=== PATIENT | male | born 1965 | race Caucasian/White ===

== ENCOUNTER → 2019-10-04 14:59 | Outpatient (CLI) | payer BC, SELFPAY ==
--- NOTE | 2019-10-04 15:01 | XR_ITS ---
PROCEDURE: XR CHEST AP CLINICAL HISTORY: COUGH, COMPARISON: CXR CHEST(2 VIEWS-NOT PORTABLE) from 07/15/2012 FINDINGS: The cardiomediastinal silhouette and pulmonary vascularity are within normal limits. The lungs are clear without infiltrates, suspicious nodules, or pleural effusions. No acute bony abnormalities. IMPRESSION: No acute findings. Dictated by: Santi Hanna MD 10/04/2019 16:04 Electronically signed by Santi Hanna MD in [place] 10/04/2019 16:04
== END ==
PROVIDERS: PCP Family Medicine; Visit Provider Family Medicine
DX: J98.8 Other specified respiratory disorders (principal)
CPT/HCPCS: 71045

== ENCOUNTER → 2019-10-06 13:14 | Outpatient (CLI) | payer BC, SELFPAY ==
--- NOTE | 2019-10-08 09:12 | PC.NURSE ---
notified MD, patient, and [facility] of negative COVID-19 results.
[2019-10-08 10:32] LABS: Covid-19 Nasal PCR Sendout Lex NOT DETECTED
== END ==
PROVIDERS: Visit Provider Family Medicine
DX: R05 Cough (principal)

== ENCOUNTER 2025-05-20 04:09 | Emergency (ER) | payer BC, SELFPAY ==
--- OUTSIDE RECORDS SUMMARY | 2025-03-24 08:47 | XMS_ITS | Encounter Summary ---
Author Organization [facility] Address [address] [place] [id number] Care Team Providers Care Sole Cutter Name Role Phone Rickey Cross Deidra Primary Care Provider Source Comments In the event this information is protected by the Federal Confidentiality of Alcohol and Drug AbusePatient Records regulations: The Federal rules restrict any use of the information to criminally investigate or prosecute any alcohol or drug abuse patient.[facility] Reason for Referral * Diagnostic Procedure Only (Routine) - Closed Specialty Diagnoses / Procedures Referred By Contac t Referred To Contact XR IMAGING Diagnoses Bilateral primary osteoarthritis of knee Procedures XR LEG FRONTAL HIP TO ANKLE MECHANICAL AXIS BONE LENGTH STUDIES Dany Rossi DO [address] [place] [address] Phone: tel: fax: [place] [phone] Referral ID Status Reason Start Date Expiration Date V isits Requested Visits Authorized [id number] Closed Auto-Generate d Referral 12/14/2024 01/13/2026 1 1 * Diagnostic Procedure Only (Routine) - Closed Specialty Diagnoses / Procedures Referred By Contac t Referred To Contact XR IMAGING Diagnoses Bilateral primary osteoarthritis of knee Procedures XR KNEE GENERAL 4V AP BOTH/PA BOTH/LAT/MERC BILATERAL RADIOLOGIC EXAM KNEE COMPLETE 4/MORE VIEWS Dany Rossi DO [address] [place] [address] Phone: tel: fax: [place] [phone] Referral ID Status Reason Start Date Expiration Date V isits Requested Visits Authorized [id number] Closed Auto-Generate d Referral 12/14/2024 01/13/2026 1 1 Reason for Visit * Diagnostic Procedure Only (Routine) - Closed Specialty Diagnoses / Procedures Referred By Contac t Referred To Contact XR IMAGING Diagnoses Bilateral primary osteoarthritis of knee Procedures XR LEG FRONTAL HIP TO ANKLE MECHANICAL AXIS BONE LENGTH STUDIES Dany Rossi DO [address] [place] [address] Phone: tel: fax: [place] [phone] Referral ID Status Reason Start Date Expiration Date V isits Requested Visits Authorized [id number] Closed Auto-Generate d Referral 12/14/2024 01/13/2026 1 1 Encounter Details Date Type Department Care Team (Latest Contact Info) Description 03/24/2025 9:47 AM EDT - 03/24/2025 11:59 PM EDT Hospital Encounter Radiology [address] [place] [address] Bilateral primary osteoarthritis of knee [M17.0] Discharge Disposition: Home Social History Tobacco Use Types Packs/Day Years Used Date Smoking Tobacco: Every Day Cigarettes Smokeless Tobacco: Never Alcohol Use Standard Drinks/Week Comments No 0 (1 standard drink = 0.6 oz pur e alcohol) PHQ-2 Answer Date Recorded PHQ-2 score 0 03/21/2025 Area Deprivation Index Answer Date Chicho rded National Score (1-100), lower number is lower ri sk 78 04/23/2024 State Score (1-10), lower number is lower risk 6 04/23/2024 Data from: https://www.neighborhoodatlas.medicine.[facility].edu/. Last address used for calculation [address] [facility] [facility] 04/23/2024 Sex and Gender Information Value Date Recorded Sex Assigned at Male 02/08/2020 3:11 PM EDT Legal Sex Male 8:08 AM EST Gender Identity Male 02/08/2020 3:11 PM EDT Sexual Orientation Not on file Travel History Travel Start Travel End [place] 05/17/2025 05/18/2025 documented as of this encounter Functional Status * Are you deaf or do you have serious difficulty hearing? Answer Date of Assessment Author No 11/11/2014 12:35 PM EDT Michelle Salinas (Tripp)(Hist) * Are you blind or do you have serious difficulty seeing, even when wearing glasses? Answer Date of Assessment Author No 11/11/2014 12:35 PM EDT Michelle Salinas (Tripp)(Hist) * Do you have serious difficulty walking or climbing stairs? Answer Date of Assessment Author No 11/11/2014 12:35 PM EDT Michelle Salinas ([place]ripp)(Hist) * Do you have difficulty dressing or bathing? Answer Date of Assessment Author No 11/11/2014 12:35 PM EDT Michelle Salinas ([place]ripp)(Hist) * Because of a physical, mental, or emotional condition, do you have difficulty doing errands alone such as visiting a doctor's office or shopping? Answer Date of Assessment Author No 11/11/2014 12:35 PM Michelle Zepeda ([place]ripp)(Hist) documented as of this encounter Mental Status * Because of a physical, mental, or emotional condition, do you have serious difficulty concentrating, remembering, or making decisions? Answer Entry Date Author No 11/11/2014 12:35 PM EDT Michelle Salinas ([place]ripp)(Hist) documented in this encounter Medications at Time of Discharge oxyCODONE IR (ROXICODONE) 5 mg immediate release tabletIndications:Pos t-op pain Take 1-2 tablets by mouth every 4 hours as needed for pain for up to 7 days. 50 tablet 05/18/2025 4:47 PM EST 05/18/2025 aspirin, enteric coated (ECOTRIN LOW STRENGTH) 81 mg EC tablet Take 1 tablet by mouth two times a day for 28 days. 56 tablet 05/18/2025 4:47 PM EST 05/18/2025 5 docusate sodium (COLACE) 100 mg capsule Take 1 capsule by mouth two times a day. 60 capsule 05/18/2025 4:47 PM EST 05/18/2025 methocarbamol (ROBAXIN) 750 mg tablet Take 1 tablet by mouth three times a day for 14 days. 42 tablet 05/18/2025 4:47 PM EST 05/18/2025 acetaminophen (TYLENOL EXTRA STRENGTH) 500 mg tablet Take 2 tablets by mouth every 8 hours as needed for pain. 90 tablet 05/18/2025 4:47 PM EST 05/18/2025 doxycycline hyclate (VIBRAMYCIN) 100 mg capsule Take 1 capsule by mouth two times a day for 7 days. 14 capsule 05/18/2025 4:47 PM EST 05/18/2025 meloxicam (MOBIC) 15 mg tablet Take 1 tablet by mouth once daily for 14 days. 14 tablet 05/18/2025 4:47 PM EST 05/18/2025 omeprazole (PRILOSEC) 20 mg capsule Take 1 capsule by mouth once daily. 30 capsule 05/18/2025 4:47 PM EST 05/18/2025 ergocalciferol 50,000 unit capsule (VITAMIN D2, DRISDOL) Take 2 capsules by mouth one time a week. 24 capsule 05/18/2025 6 metFORMIN (GLUCOPHAGE) 500 mg tablet 03/17/2025 tamsulosin (FLOMAX) 0.4 mg 03/17/2025 testosterone (ANDROGEL) 12.5 mg/ 1.25 gram (1 %) transdermal gelIndications:Hypogo nadism in male APPLY a total of 4 pumps TO CLEAN, DRY, INTACT SKIN OF SHOULDER AND UPPER ARMS DAILY. 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 30-60 minutes before sexual intercourse. 30 tablet 3 06/22/2021 mupirocin (BACTROBAN) 2 % ointmentIndications:P rimary osteoarthritis of left knee Apply to affected area two times a day for 5 days. 22 g 03/24/2025 documented as of this encounter Progress Notes * Joaquin Rico RT(R) - 03/24/2025 10:10 AM EDT Radiology Service Progress Note PATIENT NAME: Juan Orosco DATE OF SERVICE: March 24, 2025 TIME: 10:11 AM PATIENT IDENTITY VERIFICATION COMPLETED USING TWO (2) IDENTIFIERS: Name and Date of confirmedby patient verbally. FALL SCREENING: Has the patient had 2 falls in the last year or 1 fall with injury or currently using an Ambulatory Assistive Device (Walker, Cane, Wheelchair, Crutches, etc.)? No PATIENT GENDER DATA: Assigned male at PATIENT RELEVANT IMPLANT DATA REVIEWED: Not Applicable PATIENT PRESENTS WITH AN IMPLANTABLE OR ATTACHED ELECTRICAL LINE MECHANIC: No RADIOLOGY DEPARTMENT: General X-ray: Exam(s) Completed: Lower Extremity X- Ray(s): Knee, AP / Lat /Tunne / Merchant Bilateral and Leg Length PERIPHERAL IV DATA: Not applicable SIGNED BY: RT Florentin(Andres) March 24, 2025 10:11 AM documented in this encounter Plan of Treatment Upcoming Encounters Date Type Department Care Team (Latest Contact Info) Description 06/10/2025 12:30 PM EST Appointment Radiology [address] [place] [address] post op xray left knee 06/10/2025 1:00 PM EST Nurse Visit Orthopaedics [address] [place] [address] [place] [address] [place] [address] Surgical post op 07/21/2025 11:00 AM EST [facility] [address] [place] [address] Dinora Bourgeois [facility] [address] [facility] [address] Follow-up pituitary tumor and medication refill 08/04/2025 3:40 PM EST [facility] [address] [place] [address] Dany Rossi DO [address] [place] [address] 3 month phone Surgical post op documented as of this encounter Goals Goal Patient Goal Type Associated Problems Recent Progress Patient-Stated? 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 No Brigid Parker Autogenerated Goal Care Plan Autogenerated Problem No Brigid Parker documented as of this encounter Procedures Procedure Name Priority Date/Time Associated Diagnosis Comments XR KNEE GENERAL 4V AP BOTH/PA BOTH/LAT/MERC BILAT Routine 03/24/2025 10:11 AM EDT Bilateral primary osteoarthritis of knee XR LEG FRONTAL HIP TO ANKLE MECHANICAL AXIS Routine 03/24/2025 10:11 AM EDT Bilateral primary osteoarthritis of knee documented in this encounter Results * XR LEG FRONTAL HIP TO ANKLE MECHANICAL AXIS (03/24/2025 10:11 AM EDT) Anatomical Region Laterality Modality Leg Other 03/24/2025 10:1 1 AM EDT Impressions 03/24/2025 11:32 AM EDT IMPRESSION: RIGHT: MILD LATERAL COMPARTMENT NARROWING HAS DEVELOPED. LEFT: LATERAL COMPARTMENT DEGENERATIVE CHANGES HAVE PROGRESSED. Care Coordinator: PSCB Transcribe Date/Time: Mar 24 2025 11:25A Dictated by : RICKEY CORNELIUS MD This examination was interpreted and the report reviewed and electronically signed by: RICKEY CORNELIUS MD on Mar 24 2025 11:29AM EST Narrative 03/24/2025 11:32 AM EDT * * *Final Report* * * DATE OF EXAM: Mar 24 2025 10:11AM [id number] - XR LEG FRONTL HIP-ANKL [facility] AXIS / PROCEDURE REASON: Bilateral primary osteoarthritis of knee * * * * Physician Interpretation * * * * HISTORY: Bilateral primary osteoarthritis of knee TECHNOLOGIST PROVIDED HISTORY (if applicable): PATIENT STATES LEFT KNEE PAIN, HX OF MENISCUS REPAIR (accession [id number]), LEG LENGTH STUDY (accession [id number]) TECHNIQUE: XR KNEE 4V AP/PA/LAT/MERCH CHELLE, XR LEG FRONTL HIP-ANKL MECH AXIS RESULT: Bilateral 4 view knees. RIGHT: Mild patella hu with patellar enthesophytes as before. Minimal lateral patellar subluxation with small osteophytes similar to prior. The joint space is preserved. The lateral compartment is now mildly narrowed posteriorly. Small marginal tibiofemoral osteophytes unchanged. No effusion, fracture or dislocation. LEFT: Patella hu. Extensive mechanism enthesophytes. Mature ossification along the distal patellar tendon unchanged. Minimal patellofemoral subluxation laterally with preserved joint spaces and tiny marginal osteophytes. The subluxation is less pronounced than on the previous examination. Severe medial compartment narrowing worse posteriorly with subchondral sclerosis and osteophytes unchanged. Findings suggest a healed stress reaction in the medial tibial plateau. Lateral compartment is mildly narrowed posteriorly with small marginal osteophytes with interval progression. Procedure Note Provider, [facility] [place] - 03/24/2025 * * *Final Report* * * DATE OF EXAM: Mar 24 2025 10:11AM [id number] - XR LEG FRONTL HIP-[facility]L [facility] AXIS / PROCEDURE REASON: Bilateral primary osteoarthritis of knee * * * * Physician Interpretation * * * * HISTORY: Bilateral primary osteoarthritis of knee TECHNOLOGIST PROVIDED HISTORY (if applicable): PATIENT STATES LEFT KNEE PAIN, HX OF MENISCUS REPAIR (accession [id number]), LEG LENGTH STUDY (accession [id number]) TECHNIQUE: XR KNEE 4V AP/PA/LAT/MERCH CHELLE, XR LEG FRONTL HIP-ANKL MECH AXIS RESULT: Bilateral 4 view knees. RIGHT: Mild patella hu with patellar enthesophytes as before. Minimal lateral patellar subluxation with small osteophytes similar to prior. The joint space is preserved. The lateral compartment is now mildly narrowed posteriorly. Small marginal tibiofemoral osteophytes unchanged. No effusion, fracture or dislocation. LEFT: Patella hu. Extensive mechanism enthesophytes. Mature ossification along the distal patellar tendon unchanged. Minimal patellofemoral subluxation laterally with preserved joint spaces and tiny marginal osteophytes. The subluxation is less pronounced than on the previous examination. Severe medial compartment narrowing worse posteriorly with subchondral sclerosis and osteophytes unchanged. Findings suggest a healed stress reaction in the medial tibial plateau. Lateral compartment is mildly narrowed posteriorly with small marginal osteophytes with interval progression. IMPRESSION IMPRESSION: RIGHT: MILD LATERAL COMPARTMENT NARROWING HAS DEVELOPED. LEFT: LATERAL COMPARTMENT DEGENERATIVE CHANGES HAVE PROGRESSED. Care Coordinator: KARINA Transcribe Date/Time: Mar 24 2025 11:25A Dictated by : RICKEY CORNELIUS MD This examination was interpreted and the report reviewed and electronically signed by: RICKEY CORNELIUS MD on Mar 24 2025 11:29AM EST Dany KEYESJEAN-PIERRE Final Resul t * XR KNEE GENERAL 4V AP BOTH/PA BOTH/LAT/MERC BILATERAL (03/24/2025 10:11 AM EDT) Anatomical Region Laterality Modality Knee Other 03/24/2025 10:1 1 AM EDT Impressions 03/24/2025 11:32 AM EDT IMPRESSION: RIGHT: MILD LATERAL COMPARTMENT NARROWING HAS DEVELOPED. LEFT: LATERAL COMPARTMENT DEGENERATIVE CHANGES HAVE PROGRESSED. Care Coordinator: KARINA Transcribe Date/Time: Mar 24 2025 11:25A Dictated by : RICKEY CORNELIUS MD This examination was interpreted and the report reviewed and electronically signed by: RICKEY CORNELIUS MD on Mar 24 2025 11:29AM EST Narrative 03/24/2025 11:32 AM EDT * * *Final Report* * * DATE OF EXAM: Mar 24 2025 10:11AM [id number] - XR KNEE 4V AP/PA/LAT/MERCH CHELLE / PROCEDURE REASON: Bilateral primary osteoarthritis of knee * * * * Physician Interpretation * * * * HISTORY: Bilateral primary osteoarthritis of knee TECHNOLOGIST PROVIDED HISTORY (if applicable): PATIENT STATES LEFT KNEE PAIN, HX OF MENISCUS REPAIR (accession [id number]), LEG LENGTH STUDY (accession [id number]) TECHNIQUE: XR KNEE 4V AP/PA/LAT/MERCH CHELLE, XR LEG FRONTL HIP-ANKL MECH AXIS RESULT: Bilateral 4 view knees. RIGHT: Mild patella hu with patellar enthesophytes as before. Minimal lateral patellar subluxation with small osteophytes similar to prior. The joint space is preserved. The lateral compartment is now mildly narrowed posteriorly. Small marginal tibiofemoral osteophytes unchanged. No effusion, fracture or dislocation. LEFT: Patella hu. Extensive mechanism enthesophytes. Mature ossification along the distal patellar tendon unchanged. Minimal patellofemoral subluxation laterally with preserved joint spaces and tiny marginal osteophytes. The subluxation is less pronounced than on the previous examination. Severe medial compartment narrowing worse posteriorly with subchondral sclerosis and osteophytes unchanged. Findings suggest a healed stress reaction in the medial tibial plateau. Lateral compartment is mildly narrowed posteriorly with small marginal osteophytes with interval progression. Procedure Note Provider, [facility] [place] - 03/24/2025 * * *Final Report* * * DATE OF EXAM: Mar 24 2025 10:11AM [id number] - XR KNEE 4V AP/PA/LAT/MERCH CHELLE / PROCEDURE REASON: Bilateral primary osteoarthritis of knee * * * * Physician Interpretation * * * * HISTORY: Bilateral primary osteoarthritis of knee TECHNOLOGIST PROVIDED HISTORY (if applicable): PATIENT STATES LEFT KNEE PAIN, HX OF MENISCUS REPAIR (accession [id number]), LEG LENGTH STUDY (accession [id number]) TECHNIQUE: XR KNEE 4V AP/PA/LAT/MERCH CHELLE, XR LEG FRONTL HIP-ANKL MECH AXIS RESULT: Bilateral 4 view knees. RIGHT: Mild patella hu with patellar enthesophytes as before. Minimal lateral patellar subluxation with small osteophytes similar to prior. The joint space is preserved. The lateral compartment is now mildly narrowed posteriorly. Small marginal tibiofemoral osteophytes unchanged. No effusion, fracture or dislocation. LEFT: Patella hu. Extensive mechanism enthesophytes. Mature ossification along the distal patellar tendon unchanged. Minimal patellofemoral subluxation laterally with preserved joint spaces and tiny marginal osteophytes. The subluxation is less pronounced than on the previous examination. Severe medial compartment narrowing worse posteriorly with subchondral sclerosis and osteophytes unchanged. Findings suggest a healed stress reaction in the medial tibial plateau. Lateral compartment is mildly narrowed posteriorly with small marginal osteophytes with interval progression. IMPRESSION IMPRESSION: RIGHT: MILD LATERAL COMPARTMENT NARROWING HAS DEVELOPED. LEFT: LATERAL COMPARTMENT DEGENERATIVE CHANGES HAVE PROGRESSED. 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
--- OUTSIDE RECORDS SUMMARY | 2025-03-24 09:40 | XMS_ITS | Encounter Summary ---
Author Organization [facility] Address [address] [place] [address] Care Team Providers Care Customer Solutions Architect Name Role Phone Tay Rickey Gay Primary Care Provider [phone] Source Comments In the event this information is protected by the Federal Confidentiality of Alcohol and Drug AbusePatient Records regulations: The Federal rules restrict any use of the information to criminally investigate or prosecute any alcohol or drug abuse patient.[facility] Reason for Referral * Physical Therapy (Routine) - Pending Review Specialty Diagnoses / Procedures Referred By Contac t Referred To Contact [facility] Diagnoses Primary osteoarthritis of left knee Procedures PHYSICAL THERAPY EVALUATION HIGH COMPLEX 45 MINS Dany Rossi, DO [address] [place] [address] Phone: tel: fax: [facility] [address] [place] [address] Referral ID Status Reason Start Date Expiration Date Visits Requested Visits Authorized [id number] Pending Review Auto-Generat ed Referral 03/24/2026 1 1 Scheduling Instructions For an appointment call: LTKA DOS 05/18/2025 TOTAL KNEE REPLACEMENT PROTOCOL * Most TKA's are cemented, Medial para-patellar approach unless specified Weight Bearing Status: WBAT unless specified (primary & revision). Progression to cane at therapist/patient discretion. Exercises: AROM: yes, encouraged AAROM: yes PROM: yes, aggressive as tolerated Contract/Relax: yes Resistive: yes at 3-4 weeks but prefer closed chain functional exercises (hams 10 pound limit, quads 10-15 pound limit) Closed Chain: yes Raised Seat Stationary Bike: yes at 3-4 weeks as tolerated Prone lying to promote extension: yes Standing exercises: yes Additional Information: Patellar Mobilization: yes Scar Mobilization: yes, okay at 4-6 weeks postop CPM: as per orthopedic team recommendation Rolling: as tolerated, operative and non-operative side Shower: okay to shower at 10 days postop if wound dry, no pool or bath until cleared by orthopedic team Neuro Muscular E-Stim Quads: yes, after 4 weeks postop, prn Driving: After 3 weeks, if unsure wait until MD follow up visit Recreational Activities: Golf: 4-6 weeks (putt/chip/short irons); 6-8 weeks (long irons/hayden) Swimmin weeks typically, cleared by ortho team first Biking: regular outdoor 8 weeks Flyin weeks unless absolutely necessary, then Lovenox 40mg * ANY QUESTIONS OR ISSUES, PLEASE CONTACT Dr. Dany Rossi at [phone] [facility]: [phone]. [facility]: [phone], Option 1. [facility]: [phone] [facility]: [phone] [facility]: [phone] [facility]) ADULTS - For an appointment call: [place], [place]: [phone] ([address] [facility], [address]) [place], [place]: [phone] ([address]) or [phone] ([address]) [place], [place]: [phone] ([address]) or [phone] ([address] [facility], [address]) or [phone] ([address] [facility], [address]) PEDIATRICS - For an appointment call: [place], [place]: [phone] ([address] [facility]) The secret service agent will assist you in selecting the location and specialty service that will best meet your needs. For a list of sites and services: [email or web address] x Order Date: March 24, 2025 Ordering Physician: Dany Rossi DO (Signed Electronically in [facility]) * Diagnostic Procedure Only (Routine) - Authorized Specialty Diagnoses / Procedures Referred By Jacqueline gandhi Referred To Contact XR IMAGING Diagnoses Primary osteoarthritis of left knee Procedures XR KNEE POST OP 3V AP/LAT/MERCHANT LEFT RADIOLOGIC EXAMINATION KNEE 3 VIEWS Dany Rossi DO [address] [place] [address] Phone: tel: fax: XR IMAGING [id number] Referral ID Status Reason Start Date Expiration Date Visits Requested Visits Authorized [id number] Authorized Auto-Generat ed Referral 03/24/2025 04/23/2026 1 1 * Consult, Test, Treat (Routine) - New Request Specialty Diagnoses / Procedures Referred By Jacqueline gandhi Referred To Contact Diagnoses Primary osteoarthritis of left knee Procedures OFFICE/OUTPATIENT [facility] 60 MINUTES Dany Rossi DO [address] [place] [address] Phone: tel: fax: Referral ID Status Reason Start Date Expiration Date Visits Requested Visits Authorized [id number] New Request PCP Requested Referral 03/24/2025 03/24/2026 1 1 * Outpatient Procedure (Routine) - New Request Specialty Diagnoses / Procedures Referred By Jacqueline gandhi Referred To Contact [facility] Diagnoses Primary osteoarthritis of left knee Procedures ECG COMPLETE ECG ROUTINE ECG W/LEAST 12 LDS W/I&R Dany Rossi DO [address] [place] [address] Phone: tel: fax: [facility] [place] [address] [place] [address] Referral ID Status Reason Start Date Expiration Date Visits Requested Visits Authorized [id number] New Request Auto-Generat ed Referral 03/24/2025 03/24/2026 1 1 Reason for Visit * Reason Comments Knee Pain * Consult, Test, Treat (Routine) - Closed Specialty Diagnoses / Procedures Referred By Jacqueline gandhi Referred To Contact Orthopedics Diagnoses Primary osteoarthritis of both knees Procedures OFFICE/OUTPATIENT [facility] 60 MINUTES Anabel Kingsley MD [address] [place] [address] Phone: tel: fax: Dany Rossi DO [address] [facility] [address] [place] [address] Phone: tel: fax: Referral ID Status Reason Start Date Expiration Date V isits Requested Visits Authorized [id number] Closed PCP Requested Referral 07/23/2024 07/23/2025 1 1 Encounter Details Date Type Department Care Team (Latest Contact Info) Description 03/24/2025 10:40 AM EDT Office Visit Orthopaedics [address] [place] [address] Dany Rossi DO [address] [place] [address] Type 2 diabetes mellitus with other specified complication, unspecified whether terminologist insulin use (HCC) (Primary Dx); Primary osteoarthritis of both knees; Smoker; Anemia, unspecified type; Primary osteoarthritis of left knee Social History Tobacco Use Types Packs/Day Years [...] is lower risk 6 04/23/2024 Data from: https://www.neighborhoodatlas.medicine.[email or web address]/. Last address used for calculation [address] 04/23/2024 Sex and Gender Information Value Date Recorded Sex Assigned at Male 02/08/2020 3:11 PM EDT Legal Sex Male 8:08 AM EST Gender Identity Male 02/08/2020 3:11 PM EDT Sexual Orientation Not on file Travel History Travel Start Travel End [place] 05/17/2025 05/18/2025 documented as of this encounter Last Filed Vital Signs Vital Sign Reading Time Taken Comments Blood Pressure - - Pulse - - Temperature - - Respiratory Rate - - Oxygen Saturation - - Inhaled Oxygen Concentration - - Weight 138.3 kg (304 lb 14.3 oz) 2024 10:38 AM EDT Height 191 cm (6' 3.2 ) 03/24/2025 10:3 8 AM EDT Body Mass Index 37.91 03/24/2025 10:38 AM EDT documented in this encounter Functional Status * Are you deaf or do you have serious difficulty hearing? Answer Date of Assessment Author No 11/11/2014 12:35 PM EDT Michelle Salinas (Tripp)(Hist) * Are you blind or do you have serious difficulty seeing, even when wearing glasses? Answer Date of Assessment Author No 11/11/2014 12:35 PM EDT Michelle Salinas (Rn)(Hist) * Do you have serious difficulty walking or climbing stairs? Answer Date of Assessment Author No 11/11/2014 12:35 PM EDT Michelle Salinas (Rn)(Hist) * Do you have difficulty dressing or bathing? Answer Date of Assessment Author No 11/11/2014 12:35 PM EDT Michelle Salinas (Rn)(Hist) * Because of a physical, mental, or emotional condition, do you have difficulty doing errands alone such as visiting a doctor's office or shopping? Answer Date of Assessment Author No 11/11/2014 12:35 PM EDT Michelle Salinas (Rn)(Hist) documented as of this encounter Mental Status * Because of a physical, mental, or emotional condition, do you have serious difficulty concentrating, remembering, or making decisions? Answer Entry Date Author No 11/11/2014 12:35 PM EDT Michelle Salinas (Rn)(Hist) documented in this encounter Patient Instructions * Patient Instructions* Dany Rossi DO - 03/24/2025 11:34 AM EDT Labwork on the way out DATE OF SURGERY 05/18/2025 AT [place] [address] Pre op packet provided with additional resources and contact information should the patient have any additional questions or concerns Expectations of same day discharge were reviewed with the patient provided physical therapy protocol is met, pain is well controlled and they are medically cleared for discharge PRE-ADMISSION TESTING TO CONTACT YOU FOR MEDICAL AND ANESTHESIA CLEARANCE WITHIN 30 DAYS OF YOUR SURGERY [facility] TOTAL JOINT CLASS. TO SCHEDULE PLEASE CALL [facility] TOTAL JOINT CLASS. TO SCHEDULE PLEASE CALL FOR ALL OTHER TOTAL JOINT CLASS LOCATIONS, CALL [facility] [phone] Dr Rossi will send prescription for mupirocin (Bactroban) ointment to your pharmacy to use 5 days prior to your surgery. Please apply twice daily for 5 days. Apply 0.5 inch ribbon with cotton swab (Q-tip) to each nostril in the morning and evening for 5 days prior to and including day of surgery. This will help prevent staph infection. FOR FMLA AND/OR SHORT TERM DISABILITY PAPERWORK, PLEASE FAX ALL DOCUMENTS TO [phone]. ALLOW 5-7 BUSINESS DAYS TO PROCESS. CALL [phone] FOR FOLLOW-UP. documented in this encounter Progress Notes * Sae Lala DO - 03/24/2025 11:04 AM EDT Images from the original note were not included. CONSULT ORTHOPAEDIC: KNEE PRIMARY CARE PHYSICIAN: Rickey Cross REFERRING PROVIDER: Anabel Kingsley [address] [facility] [address] ASSESSMENT & PLAN Impression: Left Knee Severe Degenerative Osteoarthritis, Primary Subjective: Patient is a 59-year-old male with past medical history of pituitary adenoma, prediabetes on metformin who comes in office today complaining of left knee pain. He states that the pain started about ayear and a half ago. Says relatively pain-free while at rest but with any activity including ambulation goes to about a 7 out of 10. He did have previous left knee arthroscopy with meniscal repair inOcto2022 in [place]. He recovered well from this but his pain has progressively worsened. Denies any clicking or popping. States he is has a constant dull ache in his left knee which changes to be sharp in nature with increased activity. He has taken anti-inflammatories with only some improve ment. He has had multiple injections last being about a year ago in April stating that this did not help him at all. He did complete a course of physical therapy about 6 months ago reporting that this helped but did not completely resolve. Does report that he was a previous smoker smoking a pack and a half a day reported that he has not smoked in about a month. Exam: On exam patient has moderate difficulty diving on the exam table. No reproduced hip pain on exam. He does not have any obvious flexion contracture compared to contralateral. Mildly correctable varus deformity. He has range of motion from 0-130 degrees of flexion. Mild effusion on exam. 5 out of 5 strength compared to contralateral. Neurovascularly intact distally with palpable pulses. Imaging: X-rays of the left knee reveal tricompartmental arthritis worse in the medial compartment with severe joint space narrowing, osteophyte formation, subchondral sclerosis Diagnosis: Left knee osteoarthritis Plan: Due to patient's history, exam, and imaging likely experiencing discomfort from tricompartmental arthritis. We discussed operative versus nonoperative intervention including risks benefits of both. Patient has exhausted nonoperative management and continues to be in discomfort daily. We discussed golden rgical invention in the form of left total knee arthroplasty which she is agreeable. Formal consentobtained. Implants: QUIANA MC pressfit, ASA, doxy, SS, HBA1c, nicotine test today and at time of surgery Diagnoses: (M17.0) Primary osteoarthritis of both knees Based upon the evaluation today and after discussions with John Zarate, John Zarate has significant, worsening pain at the knee. This pain is increased with activity and weight bearing, andinterferes with activities of daily living. These symptoms have continued despite a number of non-surgical measures, including a trial of oral pain medication and attempted physical therapy/ structured exercise program and/or use of an assistive device/ bracing (for at least 12 weeks unless the patient was unable to tolerate these measures as discussed above). At this point, the patient will not benefit from further PT due to the severity of their condition. The patient's physical examination is consistent with limitations in range of motion, pain with passive range of motion, crepitus, and effusion/ synovitis. These examination findings are corroborated by imaging findings of joint space narrowing, periarticular osteophyte formation, and subchondral sclerosis. The patient has been treated by the practice and all reasonable treatments have failed to control the disease, which causes significant pain and limits activities of daily living. The patient has failed conservative treatment and joint replacement surgery was discussed and agreed upon by both provider and patient. We will proceed with surgical management to improve function and relieve pain refractory to non-surgical measures. Left Primary Total Knee Arthroplasty as evidenced by six months of unsuccessful non-operative treatment as outlined in the HPI below and progressive symptoms. Progressive Symptoms Include: Pain impacting sleep or causing fatigue Pain impacting work Pain worsened by weight bearing Pain effecting living situation Pain limiting ability to stay fit and healthy Unable to ambulate 2 blocks without significant pain and dysfunction . Informed consent obtained in the office today. The risks and benefits of surgery were discussed at length including but not limited to the risks of infection, bleeding, nerve or blood vessel injury, deep venous thrombosis, pulmonary embolism, arthrofibrosis, reflex sympathetic dystrophy, , paralysis, knee or patellar dislocation, extensor mechanism injury, bone fracture, component loosening or failure requiring re-operation or amputation. Informed consent was obtained and the patient was scheduled for surgery. We also discussed fixation strategies including cement and cementless fixation and advantages and disadvantages of each. We discussed the details of the surgery as well as rehabilitation. All questions were answered, and the patient wishes to proceed with surgery.. The patient has been ordered: Office Visit on 03/24/25 CONSULT PANEL TO ORTHOPAEDICS Nasal Swab Culture Anemia Screen Albumin Level HbA1C Nicotine x2 CONSULTS: Patient does not require consults for optimization at this time. Total Joint Arthroplasty: Risk Calculator John Zarate has a 2.47% chance of NOT returning home at discharge for a Primary total Knee replacement. John's estimated Length of Stay is 2 days (Inpatient candidate). John's 30 day chance of readmission is 1.17%. Readmission Probability 1.17 % (within 30 days following surgery) Estimated LOS 2 days Discharge Disposition Probability D/C to Home 97.53 % D/C to SNF 2.47 % These calculations are based on the following factors: - 59 years of age - sex is male - BMI of 37.91 kg/m2 - NarxCare score of 0 - 0 hospitalizations in the last 12 months - no history of heart disease - no history of diabetes - no history of COPD - no history of anemia - preoperative ambulation: independent community distances - 8 step(s) to enter home - bed location is on the first floor - bath location is on the first floor - caregiver is consistent - home is more than 150 miles away - PROMIS-10 Mental Health T score 50+ - Marital status: Risk Factors for Total Knee Arthroplasty (TKA) Major Risk Factors Obesity Moderate Risk High: BMI > 40 Moderate: BMI 30-40 Normal: BMI < 30 Diabetes normal High: A1C > 8 Moderate: A1C 7-8 Normal: A1C < 7 Hx of DVT / PE normal High: dx of DVT / PE Normal: no dx of DVT / PE Smoking High Risk High: Current smoker Normal: Non smoker Narcotics Use normal High:NarxCare >=300 Moderate: 100-299 Normal: 0-99 Depression normal High: PHQ-9 >14 Moderate: PHQ-9 5-14 Normal: PHQ-9 < 5 Area Deprivation Index (ADRIAN) High Risk High: ADRIAN Score > 75 Moderate: ADRIAN 50-75 Normal: ADRIAN < 50 Obesity: weight management recommended BMI Readings from Last 3 Encounters: 03/24/25 : 37.91 kg/m?? 04/23/24 : 39.96 kg/m?? 04/23/24 : 39.32 kg/m?? John is a smoker. It is recommended that he receive a consult for smoking cessation and [id number] days of no tobacco use prior to surgery. Area Deprivation Index (ADRIAN) 09/17/2022 04/23/2024 ADRIAN Score National Score 64 78 Patient Health Questionnaire (PHQ-9) 05/30/2024 03/21/2025 PHQ-9 PHQ-2 Score 0 0 (0-4) minimal depression, (5-9) mild depression, (10-14) moderate depression, (15-19) moderately severe depression, (20-27) severe depression Bone Density Risk Screen John Zarate is low risk for bone loss based on his age and having no previous diagnoses of osteopenia, osteoporosis, Paget's disease of bone, or cancer of bone. Other risk factors are listed below to determine if they pose a significant risk for bone loss, andif so, recommend ordering a bone densitometry and, upon receiving a result, as needed, order a consult to a bone health specialist (Rheumatology, Endocrinology, or Women's Health) for bone assessment. Risk Factors: Current Smoker Additional Risk Factors Malnutrition: No Malnutrition Screening Tool (MST) score on file- please complete the MST screeningtool (click here to open) and refresh the note. 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 The problem began limiting activities 1-3 years ago. John reports a current pain level of 8 (Knee-Left). He describes the pain as Aching, Sharp, Shooting, Stiffness. The pain is Continuous . Interventions tried include Medication, Reposition. PROMIS Physical Function Score Descriptive Summary for PROMIS Physical Function T-score = 39 (Percentile 14) Much difficulty - Do 2 hours of physical labor. Some difficulty - Walk more than a mile (1.6 km). 05/30/2024 07/22/2024 03/21/2025 PROMIS CAT Physical Function T-Score 38 (moderate dysfunction) 38 (moderate dysfunction) 39 (moderate dysfunction) Percentile 12 12 14 FUNCTIONAL STATUS: Walk indoors, such as around the house (1.75 METs) Do light work around the house, such as dusting or washing dishes (2.70 METs) Take care of self, that is eating, dressing, bathing, using the toilet (2.75 METs) Walk a block or two on level ground (2.75 METs) Do moderate work around the house such as vacuuming, sweeping floors, or carrying in groceries (3.50 METs) Do yardwork, such as raking leaves, weeding,or pushing a power mower (4.50 METs) Have sexual relations (5.25 METs) Climb a flight of stairs or walk up a hill (5.50 METs) Participate in moderate recreational activities, such as golf, bowling, dancing, doubles tennis, orthrowing a baseball or football (6.00 METs) Participate in strenuous sport, such as swimming, singles tennis, football, basketball, or skiing (7.50 METs) Do heavy work around the house, such as scrubbing floors, lifting or moving heavy furniture (8.00 METs) PREVIOUS TREATMENTS: Most recent knee injection: Large Joint Arthro/Inj: L knee joint (injected on 04/23/2024 by Anabel Kingsley) Past anti-inflammatory medications (not necessarily for this reason for visit): triamcinolone acetonide Attempted Weight Loss Medical Treatments: OTC NSAIDS for 3 Months or Greater (Aleve), Steroid Injections Left Knee, Viscosupplementation Left Knee Physical Therapy: Activities Modified and PT Three Months or Greater 1-2 times per week Previous Surgery: Knee Arthroscopy REVIEW OF SYSTEMS: PAIN ASSESSMENT: See HPI. MUSCULOSKELETAL: See HPI. No data to display 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 PAST SURGICAL HISTORY Procedure Laterality Date REPAIR UMBILICAL HERNIA TONSILLECTOMY PRIMARY/SECONDARY <AGE 12 Tonsillectomy FAMILY HISTORY Problem Relation Age of Onset Heart Maternal Grandfather MT at age 56 and Cancer Father age 55 non Hodgkin's Lymphoma SOCIAL HISTORY[1] ALLERGIES: Crestor [Rosuvastatin] MEDICATIONS: testosterone (ANDROGEL) 12.5 mg/ 1.25 gram (1 %) transdermal gel APPLY a total of 4 pumps TO CLEAN,DRY, INTACT SKIN OF SHOULDER AND UPPER ARMS DAILY. cabergoline (DOSTINEX) 0.5 mg tablet Take one tablet 3 days per week. sildenafil (VIAGRA) 100 mg tablet Take 1 tablet by mouth as needed. 30-60 minutes before sexual intercourse. OBJECTIVE PHYSICAL EXAM: Ht 191 cm (6' 3.2 ) Wt (!) 138.3 kg (304 lb 14.3 oz) BMI 37.91 kg/m?? All other systems deferred. GENERAL: Obese HABITUS: Obese GAIT: Antalgic to the left KNEE EXAM: Left: Alignment: Neutral Range of motion is 0 degrees in extension and 130 degrees of flexion. Extension La degrees Pain with ROM: No Effusion: None Tender to the palpation of medial joint line Pain with patellar compression: No Stability: Anterior/Posterior stable and Varus/Valgus stable Hip Exam: flexion to 100+ degrees, full extension, internal/external rotation adequate and no pain with log roll Neurovascular Status: Sensation Intact and Moves foot and ankle up & down DATA: Most recent knee imaging was completed on 03/24/2025 (XR KNEE GENERAL 4V AP BOTH/PA BOTH/LAT/MERC BILATERAL) . Attached is imaging for the order.The most recent knee injection was Large Joint Arthro/Inj: L knee joint, injected on 04/23/2024 by Anabel Kingsley. Diagnostic tests reviewed for today's visit: Most recent labs Left knee X-Ray: Medial joint space noted to have severe degenerative changes The following conditions were addressed during the office visit today: Obesity - Weight management strategies were discussed including diet and exercise. A Consult to Weight Management will be completed to follow up on the plan of care. Smoking - Cessation counseling was performed. We discussed the risks associated with smoking and Total Joint Arthroplasty. Smoking cessation consult will be completed to follow up on the plan of care. Diabetes - HgbA1C optimization - we discussed the importance of good glucose control for overall health and Total Joint Arthroplasty. SIGNATURE: Dany Rossi DO PATIENT NAME: John Zarate DATE: March 24, 2025 TIME: 11:05 AM [1] Social History Tobacco Use Smoking status: Every Day Current packs/day: 2.00 Types: Cigarettes Smokeless tobacco: Never Substance Use Topics Alcohol use: No Drug use: No documented in this encounter Plan of Treatment Upcoming Encounters Date Type Department Care Team (Latest Contact Info) Description 06/10/2025 12:30 PM EST Appointment Radiology [address] [place] [address] post op xray left knee 06/10/2025 1:00 PM EST Nurse Visit Orthopaedics [address] [place] [address] [place] [address] [place] [address] Surgical post op 07/21/2025 11:00 AM EST [facility] [address] [place] [address] Dinora Bourgeois MD [address] [place] [address] Follow-up pituitary tumor and medication refill 08/04/2025 3:40 PM EST [facility] [address] [place] [address] Dany Rossi DO [address] [place] [address] 3 month phone Surgical post op Scheduled Orders Name Type Priority Associated Diagnoses Orde r Schedule ECG COMPLETE ECG Routine Primary osteoarthritis of left knee 1 Occurrences starting 03/24/2025 until 03/24/2026 COMPLETE BLOOD COUNT Lab Routine Primary osteoarthritis of left knee Expected: 05/11/2025 (Approximate), Expires: 08/10/2025 BASIC METABOLIC PANEL Lab Routine Primary osteoarthritis of left knee Expected: 05/11/2025 (Approximate), Expires: 08/10/2025 REFER FOR ADMIT INTERVIEW Procedures Routine Primary osteoarthritis of left knee Ordered: 03/24/2025 TYPE AND SCREEN,30 DAY Blood Bank Routine Primary osteoarthritis of left knee Expected: 05/11/2025 (Approximate), Expires: 08/10/2025 IRON AND TIBC Lab Routine Anemia, unspecified type Expected: 05/11/2025 (Approximate), Expires: 08/10/2025 COMPLETE BLOOD COUNT AND DIFFERENTIAL Lab Routine Anemia, unspecified type Expected: 05/11/2025 (Approximate), Expires: 08/10/2025 FERRITIN Lab Routine Anemia, unspecified type Expected: 05/11/2025 (Approximate), Expires: 08/10/2025 XR KNEE POST OP 3V AP/LAT/MERCHANT LEFT Radiology Routine Primary osteoarthritis of left knee 1 Occurrences starting 03/24/2025 until 04/23/2026 ALBUMIN Lab Routine Primary osteoarthritis of left knee Expected: 05/11/2025 (Approximate), Expires: 08/10/2025 CONFIRM BLOOD TYPE Blood Bank Routine Primary osteoarthritis of left knee Expected: 05/11/2025 (Approximate), Expires: 08/10/2025 VITAMIN D 25 HYDROXY Lab Routine Primary osteoarthritis of left knee Expected: 05/11/2025 (Approximate), Expires: 08/10/2025 NICOTINE/COTININE Lab Routine Smoker Primary osteoarthritis of left knee Expected: 05/11/2025 (Approximate), Expires: 08/10/2025 Scheduled Referrals Name Type Priority Associated Diagnoses Orde r Schedule REFER TO [facility] PREOPERATIVE OPTIMIZATION Referral Routine Primary osteoarthritis of left knee 1 Occurrences starting 03/24/2025 until 03/24/2026 CONSULT TO PHYSICAL THERAPY Referral Routine Primary osteoarthritis of left knee Expected: 06/08/2025 (Approximate), Expires: 03/24/2026 documented as of this encounter Goals Goal Patient Goal Type Associated Problems Recent Progress Patient-Stated? Author Total Knee Replacement Nocturnist Physician Care Plan Total Knee Replacement Nocturnist Physician No Brigid Parker Autogenerated Goal Care Plan Autogenerated Problem No Brigid Parker documented as of this encounter Procedures Procedure Name Priority Date/Time Associated Diagnosis Comments DE[facility]RE PATIENT EDUCATION PROGRAM 03/24/2025 documented in this encounter Results * (ABNORMAL) NICOTINE/COTININE (03/24/2025 11:48 AM EDT) Nicotine 6(H) <2 ng/mL 03/25/2025 1:15 PM EDT [facility] Cotinine 213(H) <2 ng/mL 03/25/2025 1:15 PM EDT [facility] Comment: Active tobacco product user: Nicotine concentration: 30 - 50 ng/mL Cotinine concentration: 200 - 800 ng/mL Passive exposure to tobacco: Nicotine concentration: < 2 ng/mL Cotinine concentration: < 8 ng/mL Unexposed non-tobacco user or abstinent user for > 2 weeks: Nicotine concentration: < 2 ng/mL Cotinine concentration: < 2 ng/mL This test was developed, and its performance characteristics determined by the [facility] Department of Pathology and Laboratory Medicine. It has not been cleared or approved by the FDA. The [facility] Department of Pathology and Laboratory Medicine is regulated under CLIA as qualified to perform high- complexity testing. This test is used for clinical purposes. It should not be regarded as investigational or for research. Blood BLOOD SPECIMEN / Unknown Venipuncture / Unknown 03/24/2025 11:48 AM EDT 03/24/2025 11:49 AM EDT us Dany Rossi DO LABORATORY Final Resul t [facility] [address] [place] [address], * (ABNORMAL) HEMOGLOBIN A1C (03/24/2025 11:48 AM EDT) Hemoglobin A1C 5.7(H) 4.3 - 5.6 % 03/24/2025 9:13 PM EDT [facility] Comment:[place] Diabetes As sociation guidelines indicate that patients with HgbA1c in the range 5.7-6.4% are at increased risk for development of diabetes, and intervention by lifestyle modification may be beneficial. HgbA1c greater or equal to 6.5% is considered diagnostic of diabetes. Estimated Average Glucose 117 mg/dL 03/24/2025 9:13 PM EDT [facility] Comment:eAG: (Estimated aver age glucose) is a calculated value from HgbA1c and is footwear sales representative of the average blood glucose level in the last 2-3 month period. Blood BLOOD SPECIMEN / Unknown Venipuncture / Unknown 03/24/2025 11:48 AM EDT 03/24/2025 11:49 AM EDT Dany Rossi DO LABORATORY Final Resul t [facility] [address] [facility] [address] [place] [id number], [place] * DEIDRE PATIENT EDUCATION PROGRAM (03/24/2025) 03/24/2025 Narrative DEIDRE - 04/24/2025 Provider IDALMIS benson patient JOHN ZARATE has not started their Deidre program, time has . Deidre program: [facility] - FULL PROGRAM us Dany Rossi DO DEIDRE Final Resul t DEIDRE documented in this encounter Visit Diagnoses Diagnosis Type 2 diabetes mellitus with other specified complication, unspecified whether terminologist insulin use (HCC)- Primary Primary osteoarthritis of both knees Primary localized osteoarthrosis, lower leg Smoker Tobacco use disorder Anemia, unspecified type Primary osteoarthritis of left knee Primary localized osteoarthrosis, lower leg documented in this encounter Additional Health Concerns Active Problems Noted Date Diagnosed Date Total Knee Replacement Nocturnist Physician 03/24/2025 Autogenerated Problem 03/24/2025 documented as of this encounter Care Teams Customer Solutions Architect Relationship Specialty Start Date End Date Rickey Cross [address] [id number] PCP - General 04/06/10 04/22/25 documented as of this encounter
--- OUTSIDE RECORDS SUMMARY | 2025-04-25 12:40 | XMS_ITS | Encounter Summary ---
Author Organization [facility] Address [address] [place], [place] [id number] Care Team Providers Care Web Marketing Intern Name Role Phone Maury Mcnamara Primary Care Provider [phone] Source Comments In the event this information is protected by the Federal Confidentiality of Alcohol and Drug AbusePatient Records regulations: The Federal rules restrict any use of the information to criminally investigate or prosecute any alcohol or drug abuse patient.[facility] Reason for Visit * Reason Comments Consult Encounter Details Date Type Department Care Team (Late st Contact Info) Description 04/25/2025 1:40 PM EDT PAT Pre Anesthesia [address] [place] [address] 1, Pacc [place] [address] [place] [address] Pre-op evaluation (Primary Dx); History of prolactinoma; Prediabetes; History of nicotine use; BMI 36.0-36.9,adult Social History Tobacco Use Types Packs/Day Years Used Date Smoking Tobacco: Some Days Cigarettes 2 35.1 Started: 04/25/1990 Smokeless Tobacco: Never Tobacco Cessation:Ready to Q uit: Not Asked; Counseling Given: Not Answered Comments:2 cigarettes in the last 3 months Alcohol Use Standard Drinks/Week Comments Never 0 (1 standard drink = 0.6 oz pur e alcohol) PHQ-2 Answer Date Recorded PHQ-2 score 0 03/21/2025 AUDIT-C Answer Date Recorded Q1: How often do you have a drink containing alcohol? Never 04/25/2025 Q2: How many drinks containi ng alcohol do you have on a typical day when you are drinking? Patient does not drink Q3: How often do you have si x or more drinks on one occasion? Never 04/25/2025 Area Deprivation Index Answer Date Chicho rded National Score (1-100), lower number is lower ri sk 78 04/23/2024 State Score (1-10), lower number is lower risk 6 04/23/2024 Data from: https://www.neighborhoodatlas.medicine.[facility].edu/. Last address used for calculation [address] 04/23/2024 Sex and Gender Information Value Date Recorded Sex Assigned at Male 02/08/2020 3:11 PM EDT Legal Sex Male 8:08 AM EST Gender Identity Male 02/08/2020 3:11 PM EDT Sexual Orientation Not on file Travel History Travel Start Travel End [place] 05/17/2025 05/18/2025 documented as of this encounter Last Filed Vital Signs Vital Sign Reading Time Taken Comments Blood Pressure 132/82 04/25/2025 1:24 PM EDT Pulse 54 04/25/2025 1:24 PM EDT Temperature 36.4 C (97.5 F) 04/25/2025 1:24 PM EDT Respiratory Rate 16 04/25/2025 1:24 PM EDT Oxygen Saturation 97% 04/25/2025 1:24 PM EDT Inhaled Oxygen Concentration - - Weight 135.6 kg (299 lb) 04/25/2025 1:24 PM EDT Height 193 cm (6' 4 ) 04/25/2025 1:24 PM EDT Body Mass Index 36.4 04/25/2025 1:24 PM EDT documented in this encounter Functional Status * AUDIT-C Score Answer Date of Assessment Author 0 04/25/2025 1:20 PM EDT Nicole Delacruz LPN * Question Answer Date of Assessment Author Q1: How often do you have a drink containing alcohol? Never 04/25/2025 1:20 PM EDT Carli Delacruz LP N Q2: How many drinks containing alcohol do you have on a typical day when you are drinking? Patient does not drink 04/25/2025 1:20 PM EDT Carli Delacruz LPN Q3: How often do you have six or more drinks on one occasion? Never 04/25/2025 1:20 PM EDT Carli Delacruz LP N * Are you deaf or do you have serious difficulty hearing? Answer Date of Assessment Author No 11/11/2014 12:35 PM EDT Michelle Salinas (Jessica)(Hist) * Are you blind or do you have serious difficulty seeing, even when wearing glasses? Answer Date of Assessment Author No 11/11/2014 12:35 PM EDT Michelle Salinas (Jessica)(Hist) * Do you have serious difficulty walking or climbing stairs? Answer Date of Assessment Author No 11/11/2014 12:35 PM EDT Michelle Salinas (Jessica)(Hist) * Do you have difficulty dressing or bathing? Answer Date of Assessment Author No 11/11/2014 12:35 PM EDT Michelle Salinas (Jessica)(Hist) * Because of a physical, mental, or emotional condition, do you have difficulty doing errands alone such as visiting a doctor's office or shopping? Answer Date of Assessment Author No 11/11/2014 12:35 PM EDT Michelle Salinas (Jessica)(Hist) documented as of this encounter Mental Status * Because of a physical, mental, or emotional condition, do you have serious difficulty concentrating, remembering, or making decisions? Answer Entry Date Author No 11/11/2014 12:35 PM EDT Michelle Salinas (Jessica)(Hist) documented in this encounter Patient Instructions * Patient Instructions* Kari Lund APRN.FOREST PATHOLOGY TEACHER - 04/22/2025 1:52 PM EDT Images from the original note were not included. [facility] PATIENT PREOPERATIVE INSTRUCTIONS Dany Rossi, DO has scheduled you for your procedure at this surgery center: [facility]: [phone] --[address] [place] [address]. On your scheduled day of surgery, please report to Patient Registration, ground floor Please read below carefully for your personalized instructions. Arrival Time for Surgery: - The Surgery Center or hospital where you are having surgery will call the afternoon before surgery (or Friday for Friday surgery) with a scheduled arrival time. - If you have not heard by 4 pm, please contact the surgery center above. Dietary Restrictions: - No solid food after midnight. - You may have 12 ounces of clear liquids (water, clear juices such as apple juice or gatorade, carbonated beverages, clear tea, black coffee, jello) until 2 hours before scheduled arrival at facility. - Do not drink any alcohol after midnight the night before your surgery. - no milk/creamer or other additives like honey - no pulp juices Medications: Pre-Surgery Med Instructions Medication Instructions meloxicam (MOBIC) 15 mg tablet Hold 7 days before surgery. Last dose 05/10/25. acetaminophen (TYLENOL) 500 mg tablet If you normally take this medication in the morning, take themorning of surgery. metFORMIN (GLUCOPHAGE) 500 mg tablet Do not take the day of surgery tamsulosin (FLOMAX) 0.4 mg If you normally take this medication in the morning, take the morning ofsurgery. testosterone (ANDROGEL) 12.5 mg/ 1.25 gram (1 %) transdermal gel Do not take the day of surgery cabergoline (DOSTINEX) 0.5 mg tablet If you normally take this medication in the morning, take the morning of surgery. sildenafil (VIAGRA) 100 mg tablet Please do not take for 48 hours before surgery. Mupirocin Ointment Apply 1/2 inch of the mupirocin ointment with a Q-tip to both nostrils in the morning and afternoon for 5 consecutive days before surgery. Hold any vitamins the day of surgery Hold any herbal supplements 7 days before surgery If you take any medications for erectile dysfunction-Cialis (Tadalafil), Levitra, Staxyn (Vardenafil) Viagra (Sildenenafil please do not take these for 48 hours before surgery. If you start any new medications after today's visit, please contact the surgeon's office. Blood Thinning Medications: - Stop NSAIDS (Ibuprofen, Advil, Aleve, Motrin, Celebrex, Mobic, etc.) 7 days before surgery, as directed by your surgeon. - Stop Aspirin 7 days before surgery, as directed by your surgeon. - Stop herbal supplements 7 days before surgery. - You may take Tylenol (Acetaminophen) or any of your pain medications that do not contain aspirin or NSAIDS as needed. Important Reminders: - If you use CPAP/BIPAP, bring the machine with you to the surgery center. - If you are prescribed inhalers for breathing, continue using them. - Please be sure to brush your teeth and you can use mouth wash or rinse your mouth if dry. - Candy, mints, and tobacco products are NOT permitted the morning of surgery. - Hearing aids, dentures and glasses may be worn the morning of surgery. - If you have dentures or partials, please have a case to place them in or leave at home day of surgery. - NO jewelry, body piercings, makeup, hairpins or contacts are to be worn the day of surgery. If you develop symptoms such as a fever, cold, or flu, or have other changes to your health within TWO DAYS of scheduled surgery or the morning of surgery, please contact the surgery center above. Personal Belongings: -Please have photo ID and insurance cards. -If you do not have a copy of advance directives on file with us, please bring a copy with you on the day of surgery. - Leave ALL valuables and money at home or with family members. For Outpatient Procedures: - YOU MUST HAVE A RESPONSIBLE MILLER HEAD TAKE YOU HOME. A BOBBIN HANDLER OR COLOR TELEVISION CONSOLE MONITOR CANNOT BE MADE A RESPONSIBLE MILLER HEAD. - We recommend that a responsible person stays with you overnight to take care of you. - You cannot stay in a hotel alone after outpatient surgery. You will not be permitted to have yoursurgery, if you do not have someone to take care of you. Please be aware that emergency situations arise, which may delay or change your surgical time. If this happens, we will notify you as soon as possible and regret any inconvenience. If you already have an Advance Directive, please fax a copy to [phone] or email to for it to be added to your chart. If you do not have an Advance Directive, you can find the appropriate form and more information at [email or web address]. We recommend that youcomplete the Advance Directive form found on the website and bring it with you the day of your surgery. It can be witnessed and scanned into your chart that day. Kari Lund APRN.CNP documented in this encounter H&P Notes * Kari Lund APRN.CNP - 04/25/2025 1:25 PM EDT Images from the original note were not included. [place] [facility] Pre-Anesthesia [facility]ation [facility] HISTORY AND PHYSICAL EXAMINATION SERVICE DATE: 04/25/2025 SERVICE TIME: 9:39 AM PRIMARY CARE PHYSICIAN: Maury Mcnamara MD Assessment Patient has the following medical conditions which may affect brie-operative course: History of prolactinoma Assessment: Patient has giant prolactinoma diagnosed in 2006. Largest size was 3.5 cm. Currently being treated with cabergoline 3x a week (MWF). Follows Endocrinology. Office Visit with Dinora oBurgeois MD (04/23/2024) # Giant prolactinoma -Continue cabergoline one tablet 3 times per week because Prolactin was still high when on 2 tablets per week -Repeat prolactin in 1 year # Hypogonadism, low libido: Testosterone has been in normal range but he reports more fatigue, low libido when off testosterone -Resume testosterone AndroGel 12.5 mg / 1.25 g 1% 4 pumps daily -Repeat testosterone level in 3 months # Elevated FT4: Clinically euthyroid -Check TRAbs and TFTs Prediabetes Assessment: Reports compliance to metformin. Prescribed by PCP. Denies any new or worsening symptoms. Hemoglobin A1C (%) Date Value 03/24/2025 5.7 History of nicotine use Assessment: Patient has not been using no patches for the past couple of days, reports he has been cutting down. BMI 36.0-36.9,adult Assessment: Body mass index is 36.4 kg/m??. ANESTHESIA FINDINGS: Intubation History: No history of difficult intubation. No abnormal airway history Significant Anesthesia Considerations: none Airway History: No history of difficult airway No abnormal airway history Reid Activity Status Index: METS: Walk indoors, such as around the house (1.75 METs) Do light work around the house, such as dusting or washing dishes (2.70 METs) Take care of self; that is eating, dressing, bathing, using the toilet (2.75 METs) Walk a block or two on level ground (2.75 METs) Do moderate work around the house, such as vacuuming, sweeping floors, or carrying in groceries (3.50 METs) Climb a flight of stairs or walk up a hill (5.50 METs) DASI Score: 18.95 Patient denies any chest pain or undue shortness of breath with the above physical activity. Clinical Frailty Scale: 3. Well, with treated comorbid disease STOP-Bang Score: BMI greater than 35 kg/m^2 Patient over 50 years old Male patient Denies snoring loudly Denies feeling tired, fatigued, or sleepy during the daytime Has not been observed to stop breathing or choking/gasping during sleep Denies having high blood pressure Does not have a large neck STOP-Bang Score: 3 I - PHYSICAL EVALUATION AIRWAY Patient intubated: No. Tracheostomy tube not present Mallampati: II. TM distance: >3 FB. Neck ROM: full ROM without neurological symptoms. Mouth openin FB. Short neck: no. Thick neck: no DENTAL Dental findings: teeth intact. II - ANESTHESIA PLAN Anesthetic plan additional comments: *PACC/TCI - anesthesia choice. Informed Consent Prepared for Surgery: optimally prepared for surgery, pending [see comment]. Labs and EKG pending. ADDENDUM: April 26, 2025 9:39 AM Labs and EKG reviewed and acceptable for procedure. CONSULTS: Patient does not require consults for optimization at this time Planned Anesthetic: anesthesia choice The Following Tests/Procedures Have Been Initiated: Orders Placed This Encounter meloxicam (MOBIC) 15 mg tablet acetaminophen (TYLENOL) 500 mg tablet Sig: Take 500 mg by mouth every 4 hours as needed. metFORMIN (GLUCOPHAGE) 500 mg tablet tamsulosin (FLOMAX) 0.4 mg mupirocin (BACTROBAN) 2 % ointment Sig: two times a day for 5 days. Apply 0.5 inch with cotton swab (Q-tip) to each nostril in the morning and evening for 5 days prior to and including day of surgery. Dispense: 22 g Refill: 0 REASON FOR VISIT: Juan Orosco is a 59 year old male who is scheduled for Procedure(s): QUIANA ROBOTIC ASSISTED TOTAL KNEE ARTHROPLASTY (Left) at the request of Dr. Dany Rossi for consultation. My final recommendation will be communicated back to the requesting physician by way of shared medical record or letter. Subjective The patient has the following: COVID-19 Immunization Status Current Care Gaps Covid-19 Vaccine ( season) Never done No completion, postpone, frequency change, or communication history exists for this topic. CHIEF COMPLAINT: pre op HPI: Patient is a 59 year old male scheduled for pre anesthesia consultation for a procedure on 05/18/2025 at [facility]. Patient is presenting with worsening left knee pain for about a year. Reports pain today of 4/10, described as aching, worsens with activity or rest. Denies swelling, reports intermittent numbness or tingling. Has tried conservative methods with little relief. Patient denies other specific radiating, alleviating, or aggravating factors. REVIEW OF SYSTEMS: General: No weight loss, malaise or fevers. Neurological: Negative for: dementia, headaches, impaired sensorium, peripheral neuropathy, seizures, TIA and strokes. Respiratory: Denies any shortness of breath, chest pain, wheezing, or cough. Negative for: asthma, bronchitis, COPD, current cough, bronchodilator used daily for the last 3 months, dyspnea, home oxygen, orthopnea, pneumonia within 6 weeks, tobacco use, URI < 2 weeks and obstructive sleep apnea. Cardiovascular: Denies any heart palpitations, edema, chest pain, shortness of breath, syncope, activity intolerance, or dizziness. Negative for: abdominal aortic aneurysm, AICD/PPM, angina, anticoagulation therapy, arrhythmia, atrial fibrillation, CAD, chest pain, CHF, congenital heart defect, DVT/PE, hyperlipidemia, hypertension, recent GA, murmur/valvular heart disease, PTCA, PVD, open heart surgery and valve surgery. GI: Negative for: abdominal pain, GERD, GI bleed <30 days, hepatitis, liver disease, nausea and vomiting. : Denies kidney disease Negative for: on dialysis, dysuria, frequent urination, hematuria, renal failure and urinary tract infection. Endocrine: + hypogonadism Negative for: hyperthyroidism and hypothyroidism. Hematology: No history of bleeding or clotting disorder. Patient is not taking anti-coagulation or platelet medications. No history of hematological symptoms or problems. Oncology: + hx of prolactinoma Psych: No history of psychiatric symptoms or problems. Musculoskeletal: See HPI. Skin: Negative for lesions, rash and itching. Implanted Devices: No implanted devices. 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 PAST SURGICAL HISTORY Procedure Laterality Date REPAIR UMBILICAL HERNIA TONSILLECTOMY PRIMARY/SECONDARY <AGE 12 Tonsillectomy FAMILY HISTORY Problem Relation Age of Onset Cancer Father age 55 non Hodgkin's Lymphoma Heart Maternal Grandfather GA at age 56 and Anesthesia Problems No Family History SOCIAL HISTORY[1] Prior to Admission medications as of 04/25/25 1328 Medication Sig Last Dose Taking meloxicam (MOBIC) 15 mg tablet Yes acetaminophen (TYLENOL) 500 mg tablet Take 500 mg by mouth every 4 hours as needed. Yes metFORMIN (GLUCOPHAGE) 500 mg tablet Yes tamsulosin (FLOMAX) 0.4 mg Yes testosterone (ANDROGEL) 12.5 mg/ 1.25 gram (1 %) transdermal gel APPLY a total of 4 pumps TO CLEAN,DRY, INTACT SKIN OF SHOULDER AND UPPER ARMS DAILY. Yes cabergoline (DOSTINEX) 0.5 mg tablet Take one tablet 3 days per week. Yes sildenafil (VIAGRA) 100 mg tablet Take 1 tablet by mouth as needed. 30-60 minutes before sexual intercourse. Yes mupirocin (BACTROBAN) 2 % ointment two times a day for 5 days. Apply 0.5 inch with cotton swab (Q-tip) to each nostril in the morning and evening for 5 days prior to and including day of surgery. No medication comments found. ALLERGIES Allergen Reactions Crestor [Rosuvastat* Other: See Comments makes me weak Objective PHYSICAL EXAM: General: alert and oriented and healthy appearance. Pertinent negatives noted - not distressed. Skin: normal color, no rash or lesions. HEENT: EOM intact, pupils equal round and pupils reactive to light. Pertinent negatives noted - no carotid bruit. Cardiovascular: regular rate and rhythm, normal S1 and S2, no rub, murmurs, or gallop. Respiratory: normal breath sounds, no wheezes or crackles. No chest wall deformity or tenderness. Abdomen: bowel sounds present and soft. Pertinent negatives noted - not tender. Extremities: Positive for joint tenderness and varicose veins (inner left leg near calf). Pertinentnegatives noted - no cellulitis, no clubbing, no deformity, no edema, no joint swelling, no abnormal pulses, no ulcer and no vascular insufficiency. Neurological: normal cognition and motor skills. Gait normal. No weakness or sensory deficit. PAIN ASSESSMENT: Pain Pain Level: 5 Pain Location: Knee-Left Frequency: Continuous Intervention/Comfort measure: Medication VITALS: BP 132/82 Pulse 54 Temp (Src) 97.5 (Temporal) Resp 16 Ht 6' 4 (1.93m) Wt 299 lb (135.6kg) SpO2 97% BMI 36.41 kg/(m^2). Diagnostic tests reviewed for today's visit: Lab Value Units Date High Low HB 15.0 g/dL 04/25/2025 17.0 13.0 HCT 42.3 % 04/25/2025 51.0 39.0 WBC 9.94 k/uL 04/25/2025 11.00 3.70 PLT 238 k/uL 04/25/2025 400 150 NA 134 mmol/L 04/25/2025 144 136 K 3.9 mmol/L 04/25/2025 5.1 3.7 GLUC 90 mg/dL 04/25/2025 99 74 BUN 15 mg/dL 04/25/2025 24 9 CREAT 0.99 mg/dL 04/25/2025 1.22 0.73 PTSEC No results within date range. INR No results within date range. APTT No results within date range. ALT No results within date range. AST No results within date range. TBILI No results within date range. TSH No results within date range. Lab Value Units Date High Low HCGQT No results within date range. UHCG No results within date range. HCG, BODY* No results within date range. Lab Value Units Date High Low ABORHD No results within date range. ABSCREEN No results within date range. Hemoglobin A1C (%) Date Value 03/24/2025 5.7 Recent Results (from the past 8760 hours) ECG COMPLETE Collection Time: 04/25/25 1:55 PM Result Value Ventricular Rate 51 Atrial Rate 51 P-R Interval 160 QRS Duration 82 QT Interval 452 QTC Calculation (Bazett) 416 Calculated P [place] 33 Calculated R [place] 45 Calculated T [place] 62 Impression SINUS BRADYCARDIA OTHERWISE NORMAL ECG No results found for this or any previous visit (from the past 39738 hours). Instructions Given to Patient: Instructions located in the after visit summary. Patient given verbal and written preop instructions and voices comprehension and compliance. SIGNATURE: Kari Lund APRN.CNP PATIENT NAME: Juan Orosco DATE: April 25, 2025 TIME: 1:25 PM PAGER/CONTACT #: [1] Social History Tobacco Use Smoking status: Some Days Current packs/day: 2.00 Average packs/day: 2.0 packs/day for 35.0 years (70.0 ttl pk-yrs) Types: Cigarettes Start date: 04/25/1990 Smokeless tobacco: Never Tobacco comments: 2 cigarettes in the last 3 months Vaping Use Vaping status: Never Used Substance Use Topics Alcohol use: Never Drug use: No documented in this encounter Plan of Treatment Upcoming Encounters Date Type Department Care Team (Latest Contact Info) Description 06/10/2025 12:30 PM EST Appointment Radiology [address] [place] [address] post op xray left knee 06/10/2025 1:00 PM EST Nurse Visit Orthopaedics [address] [place] [address] Babak Arambula, JESSICA [address] [place] [address] Surgical post op 07/21/2025 11:00 AM EST [facility] Endocrinology [address] [place] [address] Dinora Bourgeois MD [address] [place] [address] Follow-up pituitary tumor and medication refill 08/04/2025 3:40 PM [facility] Orthopaedics [address] [place] [address] Dany Rossi DO [address] [place] [address] 3 month phone Surgical post op documented as of this encounter Goals Goal Patient Goal Type Associated Problems Recent Progress Patient-Stated? Author Total Knee Replacement Mill Dresser Care Plan Total Knee Replacement Mill Dresser No Brigid Parker Autogenerated Goal Care Plan Autogenerated Problem No Brigid Parker documented as of this encounter Visit Diagnoses Diagnosis Pre-op evaluation- Primary Preoperative examination, unspecified History of prolactinoma Prediabetes Other abnormal glucose History of nicotine use BMI 36.0-36.9,adult Body Mass Index 36.0-36.9, adult * Assessment & Plan Note - Kari Lund APRN.CNP - 04/25/2025 2:08 PM EDT Associated Problem(s): BMI 36.0-36.9,adult Assessment: Body mass index is 36.4 kg/m??. * Assessment & Plan Note - Kari Lund APRN.CNP - 04/25/2025 1:52 PM EDT Associated Problem(s): History of nicotine use Assessment: Patient has not been using no patches for the past couple of days, reports he has been cutting down. * Assessment & Plan Note - Kari Lund APRN.CNP - 04/25/2025 1:49 PM EDT Associated Problem(s): Prediabetes Assessment: Reports compliance to metformin. Prescribed by PCP. Denies any new or worsening symptoms. Hemoglobin A1C (%) Date Value 03/24/2025 5.7 * Assessment & Plan Note - Kari Lund APRN.CNP - 04/25/2025 1:48 PM EDT Associated Problem(s): History of prolactinoma Assessment: Patient has giant prolactinoma diagnosed in 2006. Largest size was 3.5 cm. Currently being treated with cabergoline 3x a week (MWF). Follows Endocrinology. Office Visit with Dinora Bourgeois MD (04/23/2024) # Giant prolactinoma -Continue cabergoline one tablet 3 times per week because Prolactin was still high when on 2 tablets per week -Repeat prolactin in 1 year # Hypogonadism, low libido: Testosterone has been in normal range but he reports more fatigue, low libido when off testosterone -Resume testosterone AndroGel 12.5 mg / 1.25 g 1% 4 pumps daily -Repeat testosterone level in 3 months # Elevated FT4: Clinically euthyroid -Check TRAbs and TFTs documented in this encounter Additional Health Concerns Active Problems Noted Date Diagnosed Date Total Knee Replacement Mill Dresser 03/24/2025 Autogenerated Problem 03/24/2025 documented as of this encounter Care Teams Web Marketing Intern Relationship Specialty Start Date End Date Maury Mcnamara [address] [id number] PCP - General Internal Medicine 04/23/25 documented as of this encounter
--- OUTSIDE RECORDS SUMMARY | 2025-05-18 06:11 | XMS_ITS | Encounter Summary ---
Author Organization [facility] Address [address] [place], [place] [id number] Care Team Providers Care Teacher'S Assistant Name Role Phone Maury Mcnamara Primary Care Provider Source Comments In the event this information is protected by the Federal Confidentiality of Alcohol and Drug AbusePatient Records regulations: The Federal rules restrict any use of the information to criminally investigate or prosecute any alcohol or drug abuse patient.[facility] Reason for Referral * Home Health - Clinical SOC (Routine) - New Request Specialty Diagnoses / Procedures Referred By Jacqueline gandhi Referred To Contact Procedures CONSULT TO HOME HEALTH CARE Dany Rossi DO [address] [place] [address] Phone: tel: fax: Referral ID Status Reason Start Date Expiration Date Visits Requested Visits Authorized [id number] New Request PCP Requested Referral 05/18/2025 08/16/2025 3 3 Reason for Visit * Auth/Cert (Routine) Specialty Diagnoses / Procedures Referred By Jacqueline gandhi Referred To Contact Diagnoses Primary osteoarthritis of left knee Primary osteoarthritis of left knee [M17.12] Procedures ARTHRP KNE CONDYLE&PLATU MEDIAL&LAT COMPARTMENTS QUIANA ROBOTIC ASSISTED TOTAL KNEE ARTHROPLASTY [facility] Operating Room [address] [address] Referral ID Status Reason Start Date Expiration Date Visits Re quested Visits Authorized [id number] 1 1 Encounter Details Date Type Department Care Team (Latest Contact Info) Description 05/18/2025 6:11 AM EST - 05/18/2025 5:26 PM EST Hospital Encounter [facility] [address]D [address] [address] Dany Rossi, DO [address] [place] [address] Primary osteoarthritis of left knee [M17.12] Discharge Disposition: Home Social History Tobacco Use Types Packs/Day Years Used Date Smoking Tobacco: Some Days Cigarettes 2 35.1 Started: 04/25/1990 Smokeless Tobacco: Never Comments:2 cigarettes in the last 3 months [...] is lower risk 6 04/23/2024 Data from: https://www.neighborhoodatlas.medicine.[facility].edu/. Last address used for calculation [address] [facility] 04/23/2024 Sex and Gender Information Value Date Recorded Sex Assigned at Male 02/08/2020 3:11 PM EDT Legal Sex Male 8:08 AM EST Gender Identity Male 02/08/2020 3:11 PM EDT Sexual Orientation Not on file Travel History Travel Start Travel End [place] 05/17/2025 05/18/2025 documented as of this encounter Last Filed Vital Signs Vital Sign Reading Time Taken Comments Blood Pressure 114/52 05/18/2025 4:19 PM EST Pulse 63 05/18/2025 4:19 PM EST Temperature 36.5 C (97.7 F) 05/18/2025 4:19 PM EST Respiratory Rate 16 05/18/2025 4:19 PM EST Oxygen Saturation 96% 05/18/2025 4:19 PM EST Inhaled Oxygen Concentration - - Weight 135.6 kg (298 lb 15.1 oz) 2024 12:24 PM EST Height 193 cm (6' 3.98 ) 05/18/2025 12: 24 PM EST Body Mass Index 36.4 05/18/2025 12:24 PM EST documented in this encounter Functional Status * [...] hearing? Answer Date of Assessment Author No 05/18/2025 4:15 PM Kat Antoine RN * Are you blind or do you have serious difficulty seeing, even when wearing glasses? Answer Date of Assessment Author No 05/18/2025 4:15 PM Kat Antoine RN * Do you have serious difficulty walking or climbing stairs? Answer Date of Assessment Author No 05/18/2025 4:15 PM Kat Antoine RN * Do you have difficulty dressing or bathing? Answer Date of Assessment Author No 05/18/2025 4:15 PM Kat Antoine RN * Because of a physical, mental, or emotional condition, do you have difficulty doing errands alone such as visiting a doctor's office or shopping? Answer Date of Assessment Author No 05/18/2025 4:15 PM Kat Antoine RN documented as of this encounter Mental Status * Because of a physical, mental, or emotional condition, do you have serious difficulty concentrating, remembering, or making decisions? Answer Entry Date Author No 05/18/2025 4:15 PM Kat Antoine RN documented in this encounter Discharge Instructions * Discharge Instr - Other Orders* Angelica Baumann, - 05/18/2025 10:32 AM EST [facility] [place] [id number] or [phone] [facility] The following is a brief overview of your hospitalization. Some of the information contained on this summary may be confidential. This information should be kept in your records and should be shared with your regular doctor. Where I Will be Going after Discharge: Home My Doctors and Medical Team: My Main Hospital Doctor: Dany Rossi DO My Primary Care Physician Maury Mcnamara MD The reason I was in the hospital/main diagnosis: Primary osteoarthritis of left knee [M17.12] Summary of what happened when in the hospital: Orthopaedic procedure, medical management, physical and occupational therapy, routine perioperativecare. Surgeries: Procedure(s) and Anesthesia Type: * QUIANA ROBOTIC ASSISTED TOTAL KNEE ARTHROPLASTY - Spinal Instructions for My Care at Home or Healthcare Facility These instructions explain what you or your care consultant need to do to continue your care at home or at another healthcare facility Please go over these instructions with your nurse and care consultant. If you are not sure about something, please ask. Symptoms or health problems to watch for after I leave the hospital: - Observe for redness, swelling, or drainage. Please call the clinic immediately if you have fevers, chills with warmth/redness surrounding wound site or if you notice pus drainage from the wound site Medications on discharge: Medication List ASK your doctor about these medications acetaminophen 500 mg tablet Commonly known as: TYLENOL cabergoline 0.5 mg tablet Commonly known as: DOSTINEX Take one tablet 3 days per week. ergocalciferol (vitamin D2) 50,000 unit capsule Commonly known as: DRISDOL Take 1 capsule by mouth two times a week. meloxicam 15 mg tablet Commonly known as: MOBIC metFORMIN 500 mg tablet Commonly known as: GLUCOPHAGE sildenafil 100 mg tablet Commonly known as: VIAGRA Take 1 tablet by mouth as needed. 30-60 minutes before sexual intercourse. tamsulosin 0.4 mg Commonly known as: FLOMAX testosterone 12.5 mg/ 1.25 gram (1 %) transdermal gel Commonly known as: AndroGeL APPLY a total of 4 pumps TO CLEAN, DRY, INTACT SKIN OF SHOULDER AND UPPER ARMS DAILY. Pain management: -You should take narcotic and anti-inflammatory medications as prescribed -Side effects include nausea, vomiting, itching, drowsiness, constipation. Stomach upset can be lessened if the drug is taken with food. Should not drive or operate machinery while taking these medications. Note: These medications often contain acetaminophen (Tylenol). Make sure that other medications that you are taking do not contain acetaminophen, as too much of it may damage your liver. Antibiotic treatment: You will be sent home with a prescription for oral antibiotics which you should take 5-10 days per specific prescription DVT prophylaxis: Aspirin 81mg twice daily x 28 days total Wound care: -Keep dressing on for 7 days after surgery, do not wet Silverlon dressing -Peel off dressing on day 7 after surgery and may leave incision open to air if no drainage. If youare going to wear clothes that rub on your incision you may cover it daily with a gauze pad and tape. -If incision is still draining 7 days after surgery, please notify your surgeon and apply a dry dressing daily -You may shower 2 weeks after surgery without covering or sealing off this incision as long as the incision is not actively draining -Spongebathe until you are allowed to shower -Do not submerge in water (no tub bath, no pool/spa) until cleared by your surgeon Sylke dressing to stay intact until office follow up In general: No lotions or creams. No hydrogen peroxide. No neosporin or ointments. No sutures or augustine need to be removed. Do not remove steri strips, these will fall off on their own. Shower/bath: Patient may NOT shower until wound is dry for 2-4 weeks or if there is any active drainage from incision site. Shower should be short to avoid steaming of steri-strips. Avoid direct water jet on wound site. No baths, hot tubs, swimming pools, or Jacuzzis until seen at first post-op visit. If your steri strips become damp from showering, pat them dry. If your incision site becomes red, hot, swollen, has foul smelling drainage, or you experience increased pain, fever, chills, sweats, contact the office immediately or go to the nearest emergency room. How can I prevent constipation? Eat a well-balanced diet with plenty of fiber. Good sources of fiber are fruits, vegetables, legumes, and whole-grain breads and cereals. Fiber and water help the colon pass stool. Most of the fiber in fruits is found in the skins, such as in apples. Fruits with seeds you can eat, like strawberries, have the most fiber. Bran is a great source of fiber: eat bran cereal or add bran cereal to other foods, like soup and yogurt. Drink eight 8-ounce glasses of water a day. (Note: Milk can cause constipation in some people.) Liquids that contain caffeine, such as coffee and soft drinks, have a dehydrating effect and may need to be avoided until your bowel habits return to normal. Exercise regularly. Move your bowels when you feel the urge. How is constipation treated? Drink two to four extra glasses of water a day. Try warm liquids, especially in the morning. Add fruits and vegetables to your diet. Eat prunes and/or bran cereal. Add supplemental fiber to your diet (there are several types, such as Metamucil, Citrucel, and Benefiber). If needed, use a very mild stool softener or laxative (such as Colace [docusate], Miralax, or Milk of Magnesia). Dulcolax suppositories, and enemas may be used following the package directions. Do not use laxatives for more than two weeks without calling your health care provider, as laxative overuse can aggravate your symptoms. Activity after discharge Weight bearing/Activity: Weight bearing as tolerated Precautions No Precautions Ambulatory Aids: May walk with walker No driving while you are taking narcotics and until cleared by your surgeon. TKA exercises, postop: AROM flexion & extension-preferred and encouraged. PROM flexion & extension-OK if gently done. AAROM flexion & extension-OK if gently done. Isometric quads. Passive stretch. Active assisted stretching (contras/relax) if gently done. Isotonic hamstrings (limit 10 lbs.) @ 3-4 weeks. Isotonic quads (limit 10-15 lbs.) @ 3-4 weeks. Stationary bike @ 3-4 weeks as tolerated. Hamstring isometrics @ 4 weeks. Closed chain exercises @4-5 weeks. Diet (what I can eat): Please resume your regular diet or diabetic diet Follow-up appointment reminders: (A list of any scheduled appointments is at the end of this document) Please call Dr. Rossi's office at [phone] or call the appointment line at [phone] during normal business hours for information regarding your follow up appointment. Alternatively, you may also call the [facility] cell room operator at or during normal business hours to schedule these appointments. If you have a question that is urgent and it is after hours please call [phone] and ask the cell room operator to page the on-call orthopedic resident. Please call the above numbers if you do not already have a date for scheduled followup or if you have not been contacted by the office in 1-2 days after discharge. If an appointment has been scheduled for you, it will be noted at the bottom of this form, along with anyother upcoming appointments you may have. Future Appointments Date Time Provider Department Center 06/10/2025 12:30 PM XR [facility] 06/10/2025 1:00 PM Babak Arambula RN ORTHTW [facility] 07/21/2025 11:00 AM Dinora Bourgeois MD [facility] 08/04/2025 3:40 PM Dany Rossi DO [facility] Additional instructions for when I leave the hospital 1. Follow up as above 2. Pain control, wound care, diet, and activity as above 3. Please call with any questions or concerns Thank You Electronically Signed: Dany Rossi D.O. Joint Replacement and Adult Reconstructive Surgery [facility] [place] Office Number: [phone] documented in this encounter Medications at Time of Discharge oxyCODONE IR (ROXICODONE) 5 mg immediate release tabletIndications:Pos t-op pain Take 1-2 tablets by mouth every 4 hours as needed for pain for up to 7 days. 50 tablet 05/18/2025 4:47 PM EST 05/18/2025 5 aspirin, enteric coated (ECOTRIN LOW STRENGTH) 81 mg EC tablet Take 1 tablet by mouth two times a day for 28 days. 56 tablet 05/18/2025 4:47 PM EST 05/18/2025 5 docusate sodium (COLACE) 100 mg capsule Take 1 capsule by mouth two times a day. 60 capsule 05/18/2025 4:47 PM EST 05/18/2025 5 methocarbamol (ROBAXIN) 750 mg tablet Take 1 tablet by mouth three times a day for 14 days. 42 tablet 05/18/2025 4:47 PM EST 05/18/2025 5 acetaminophen (TYLENOL EXTRA STRENGTH) 500 mg tablet Take 2 tablets by mouth every 8 hours as needed for pain. 90 tablet 05/18/2025 4:47 PM EST 05/18/2025 5 doxycycline hyclate (VIBRAMYCIN) 100 mg capsule Take 1 capsule by mouth two times a day for 7 days. 14 capsule 05/18/2025 4:47 PM EST 05/18/2025 5 meloxicam (MOBIC) 15 mg tablet Take 1 tablet by mouth once daily for 14 days. 14 tablet 05/18/2025 4:47 PM EST 05/18/2025 5 omeprazole (PRILOSEC) 20 mg capsule Take 1 capsule by mouth once daily. 30 capsule 05/18/2025 4:47 PM EST 05/18/2025 5 ergocalciferol 50,000 unit capsule (VITAMIN D2, DRISDOL) Take 2 capsules by mouth one time a week. 24 capsule 05/18/2025 6 ergocalciferol 50,000 unit capsule (VITAMIN D2, DRISDOL) Take 1 capsule by mouth two times a week. 24 capsule 04/27/2025 6 meloxicam (MOBIC) 15 mg tablet acetaminophen (TYLENOL) 500 mg tablet Take 500 mg by mouth every 4 hours as needed. metFORMIN (GLUCOPHAGE) 500 mg tablet 03/17/2025 tamsulosin (FLOMAX) 0.4 mg 03/17/2025 cabergoline (DOSTINEX) 0.5 mg tabletIndications:Memo ign neoplasm [...] before sexual intercourse. 30 tablet 3 06/22/2021 documented as of this encounter Progress Notes * Lanie San, PT - 05/18/2025 3:47 PM EST Physical Therapy Evaluation Summary SERVICE DATE: 05/18/2025 SERVICE TIME: 1446 to 1526 ROOM: [id number]- PT 6 Clicks Score: 23 Total Joint Replacement Discharge Readiness: Cleared from Physical Therapy DISCHARGE RECOMMENDATIONS Home PT Anticipated Discharge Needs: Physical Assist at Home Physical Assist at Home for: Cleaning, Laundry, Meals, Safety, Self Care, Shopping, Transportation ASSESSMENT Response to Therapy Interventions: Good Participation in Activities, Pain Pt is eager to return home. C/o pain but able to ambulate in [place] with walker. Educated on importance on continuing to work on ROM and post-op pain management. PRECAUTIONS Total Knee Replacement, Weight Bearing Restrictions Left Lower Extremity Weight Bearing Status: WBAT CURRENT HOSPITAL COURSE Left TKR 05/18/2025 Relevant Past Medical History: Pituitary adenoma.... HOME LIVING Patient Lives With: Spouse Assistance Available: 24-Hour (will stay at [facility] for first week) Entry To Home: Stairs (threshold) Number Of Stairs Into Home: 0 Number Of Stairs To Bed/Bath: 0 Tub/Shower Type: tub shower Equipment Owned: Cane, Walker- Wheeled PRIOR FUNCTIONAL LEVEL Within Functional Limits used walker occassionally especially in community d/t pain SUBJECTIVE Pt plans to return home today THERAPY DIAGNOSIS Reduced mobility-other TREATMENT INTERVENTIONS Evaluation, Therapeutic Exercise (35797), Gait Training (01418) Timed Code Treatment (minutes): 25 Skilled Treatment Time (minutes): 40 TRAINING & EDUCATION PROVIDED Anatomy and Impact on Deficits, Assistive Device Use, Bed Mobility, Benefits of In-Hospital Mobility, Curb Step Navigation, Discharge Planning, Exercise Program, Gait Pattern, Reduction of Deviations, Handout Issued, Modalities, Pain Neuroscience, Positioning, Precautions/Restrictions, Transfers THERAPEUTIC SKILLS USED Activity Dosing, Cues for Sequencing/Proper Technique for Activity, Cuing Tactile, Cuing Verbal, Cuing Visual, Facilitation of Joint Range of Motion, Teach-Back for Education FUNCTIONAL STATUS Bed Mobility Sit to Supine: Supervision (with belt to assist LLE) Transfers Sit To Stand: Stand By Assistance Stand To Sit: Stand By Assistance Bed to Chair Gait Stand By Assistance Gait Device: Wheeled Walker General Deviations/Observations: Antalgic gait, Shazia decreased, Step length decreased Gait Distance (feet): 150 feet Gait Deviations Left Lower Extremity: Heel strike during initial stance decreased, Push off during terminal stance decreased Stairs Curb Step: Contact Guard Assistance Device: Walker GOALS Rehab Potential: Good Good Rehab Potential Due To: Current objective clinical presentation, Good overall health status, Good support system/ coping skills, Good motivation ACUTE CARE TREATMENT PLAN PT Frequency: Once Daily Treatment Interventions: Education, Joint Mobility, Strengthening, Functional Mobility Training Plan for Next Visit: Continue per POC SIGNATURE: Lanie San PT PATIENT NAME: Juan Orosco DATE: May 18, 2025 TIME: 3:47 PM * Debby Chapa, OTR/L - 05/18/2025 2:55 PM EST Occupational Therapy Evaluation Summary SERVICE DATE: 05/18/2025 SERVICE TIME: 1415 to 1445 ROOM: [address] 6 Clicks Score: 22 Total Joint Replacement Discharge Readiness: Cleared from Occupational Therapy DISCHARGE RECOMMENDATIONS Home Anticipated Discharge Needs: Physical Assist at Home Physical Assist at Home for: Cleaning, Laundry, Meals, Safety, Self Care, Shopping, Transportation ASSESSMENT Response to Therapy Interventions: Good Participation in Activities, On-Track to Achieve Discharge Goals, Pain, Requires Additional Time to Complete Activities PRECAUTIONS Total Knee Replacement, Weight Bearing Restrictions Left Lower Extremity Weight Bearing Status: WBAT CURRENT HOSPITAL COURSE s/p LTKR Relevant Past Medical History: prediabetes HOME LIVING Patient Lives With: Spouse Assistance Available: 24-Hour (will stay at [facility] for first week) Entry To Home: No Stairs Number Of Stairs To Bed/Bath: 0 Tub/Shower Type: tub shower Equipment Owned: Cane, Walker- Wheeled PRIOR FUNCTIONAL LEVEL Within Functional Limits used walker occassionally especially in community d/t pain Baseline Cognition: Oriented to self, Oriented to place, Oriented to time, Oriented to situation SUBJECTIVE Pt agreeable to work with OT THERAPY DIAGNOSIS Decreased activities of daily living (ADL), Reduced mobility-other TREATMENT INTERVENTIONS Evaluation, Self Custodial Management (02603) Timed Code Treatment (minutes): 15 Skilled Treatment Time (minutes): 30 TRAINING & EDUCATION PROVIDED Activity Adaptation/Compensatory Strategies, Adaptive Equipment/DME, Assistive Device Use, Bed Mobility, Functional Mobility Involving ADLs, Lower Extremity Bathing, Lower Extremity Dressing, Pain Management, Positioning, Precautions/Restrictions, Role of Occupational Therapy, Transfer - Bed to Chair, Transfer - Car, Transfer - Sit to Stand THERAPEUTIC SKILLS USED Cuing Verbal, Cues for Sequencing/Proper Technique for Activity, Physical Assist, Teach-Back for Education FUNCTIONAL STATUS Activities of Daily Living Assist Level Additional Information Feeding Independent Grooming Independent Bathing Upper Body Set Up Bathing Lower Body Minimal Assistance Dressing Upper Body Set Up Dressing Lower Body Minimal Assistance Toileting Modified Independent Mobility Assist Level Additional Information Bed Mobility Supine To Sit: Verbal Cues Only Sit to Stand Contact Guard Assistance Stand to Sit Contact Guard Assistance Bed to Chair Contact Guard Assistance Bed To Chair Transfer Type: Stepping Bed To Chair Transfer Equipment: Wheeled Walker Toilet/Commode Shower Functional Mobility GOALS Patient will demonstrate progress with self-care, cognitive and/or coping needs identified to allowsafe discharge to home with available support and/or physical assistance. ACUTE CARE TREATMENT PLAN OT Frequency: PRN (As Needed) Treatment Interventions: Self Care/Home Management SIGNATURE: KAITY Oliver PATIENT NAME: Juan Orosco DATE: May 18, 2025 TIME: 2:55 PM * Manisha Coe LISW - 05/18/2025 2:09 PM EST CARE MANAGEMENT: ASSESSMENT AND DISCHARGE PLAN SERVICE DATE: May 18, 2025 SERVICE TIME: 14:09 PCP: Maury Mcnamara MD Primary Contact: Extended Emergency Contact Information Primary Emergency Contact: Pelon Orosco Mobile Relation: Brother Admission Status: Extended Recovery Insurance Provider: MIRIAM ULLOA FEP PPO Discharge Planning requested by: Per Department Practice Potential Transition Plans Home OT/PT Advance Directives Current Advance Directive: None Small Business Consultant Attempted to Assist with AD Completion: Yes Action: Education Provided Current Living Arrangements and Support Lives with: Spouse/significant other Type of Residence: Private Residence (House) Does the patient have to climb stairs at home?: Yes, stairs outside the home, stairs within the home Support: Family members, Spouse/significant other, Friends/neighbors, Parent How do you manage to accomplish the following: Independent: Ambulation, Transportation to appointments/community, Bathe/Shower, Dress, Meals/Meal Prep, Going to the bathroom, Medication Management Current Services/Equipment Current Post-Acute Service(s): DME Current DME Type: Cane, Rolling walker Discharge Planning Patient Goal(s): Less pain, Better mobility [place] of Choice Explained: [place] of Choice Given: Yes Level of Care Discussed: Home Care Are you interested in bedside delivery of your medications? Yes Discharge Planning Participant(s): Patient Patient/Family Comments: Caregiver Assessment: Caregiver is ready, willing and able to meet the patient's needs as recommended by the inter-professional team: Yes Name of Caregiver: Mother (goign to her house at [facility] spouse works FT) Transport at Discharge: Transportation Arrangements: Car Needs Prior to Discharge: Needs Prior to Discharge: To Be Determined, Accepting Facility, Home Care Order, OT/PT Evaluation Post-Acute Discharge Plan: Patient had knee surgery. CM met with the patient at bedside. CM confirmed the patient's demographics. Patient shares a two story home with his . However he will be going to his mom's house at discharge: [address] [place] [address] [place] [address]. Patient is independent in ADLs and drives. Patient's friend Niko will provide transport at discharge. The patient states he feels safe at home and denies safety, financial, and social concerns at this time.The patient denied any additional needs at this time. DME: wheeled walker and cane. Anticipated Needs: Home PT/OT Referral sent to [facility] agencies for home PT/OT and accepted by [facility]. Department will continue to follow. It is anticipated the patient will discharge later today when medically clear. The patient is awareof the potential discharge. SIGNATURE: SYD Fontanez PATIENT NAME: Juan Orosco DATE: May 18, 2025 TIME: 2:09 PM documented in this encounter Consult Notes * Rakan Gill MD - 05/18/2025 3:39 PM ESTAssociated Order(s): PHYSICIAN CONSULT (AK,AV,EU,FV,HL,IR,CAROL,MH,MM,MO,MR,SP,UN) CONSULT: MEDICAL SERVICE SERVICE DATE: 05/18/2025 SERVICE TIME: 3:39 PM REASON FOR CONSULT: post op medical care REQUESTING PHYSICIAN: Flo PRIMARY CARE PHYSICIAN: Maury Mcnamara MD Subjective Mr. Orosco is a 59 year old male who presents for left knee arthroplasty. I was asked to see the pt for post op medical care. Pt seen and chart reviewed. At this time, the patient has no new medical concerns. His history is notable for prolactinoma and impaired fasting glucose. Currently he denies shortness of breath. There is no chest pain or palpitations. 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 PAST SURGICAL HISTORY Procedure Laterality Date REPAIR UMBILICAL HERNIA TONSILLECTOMY PRIMARY/SECONDARY <AGE 14 Tonsillectomy FAMILY HISTORY Problem Relation Age of Onset Cancer Father age 55 non Hodgkin's Lymphoma Heart Maternal Grandfather [place] at age 56 and Anesthesia Problems No Family History SOCIAL HISTORY[1] Prescriptions Prior to Admission[2] Current Facility-Administered Medications Medication Dose Route Frequency lactated ringers iv infusion 75 mL/hr INTRAVENOUS CONTINUOUS ceFAZolin iv piggyback 2 g in D5W (iso-osmotic) 100 mL (ANCEF) 2 g INTRAVENOUS q 8 HR acetaminophen 1,000 mg tab(s) (TYLENOL) 1,000 mg ORAL q 8 H oxyCODONE IR 5-10 mg tab(s) (ROXICODONE) 5-10 mg ORAL q 3 H PRN ondansetron 4 mg tab(s) (ZOFRAN) 4 mg ORAL q 6 H PRN Or ondansetron (PF) 4 mg injection (ZOFRAN) 4 mg INTRAVENOUS q 6 H PRN [START ON 05/19/2025] magnesium hydroxide 400 mg/5 mL 30 mL (MOM) 30 mL ORAL DAILY PRN [START ON 05/20/2025] bisacodyl EC 10 mg tab(s) (DULCOLAX) 10 mg ORAL DAILY melatonin 3 mg tab(s) 3 mg ORAL AT BEDTIME PRN aluminum-magnesium hydroxide-simethicone 200-200-20 mg/5 mL 30 mL 30 mL ORAL q 2 H PRN [START ON 05/19/2025] ascorbic acid (vitamin C) 500 mg tab(s) (VITAMIN C) 500 mg ORAL BID w MEALS [START ON 05/19/2025] docusate sodium 100 mg cap(s) (COLACE) 100 mg ORAL BID senna 17.2 mg tab(s) (SENOKOT) 17.2 mg ORAL AT BEDTIME potassium chloride ER 20-40 mEq tab(s) (KLOR-CON) 20-40 mEq ORAL PRN Or potassium chloride iv piggyback 20 mEq/100 mL 20 mEq INTRAVENOUS PRN [START ON 05/19/2025] aspirin, enteric coated 81 mg tab(s) 81 mg ORAL BID insulin lispro injection (rapid acting) (ADMElog) SUBCUTANEOUS w MEALS insulin lispro injection (rapid acting) (ADMElog) SUBCUTANEOUS AT BEDTIME [START ON 05/19/2025] doxycycline hyclate 100 mg cap(s) (VIBRAMYCIN) 100 mg ORAL q 12 H /6p ergocalciferol (vitamin D2) 50,000 Units cap(s) (DRISDOL) 50,000 Units ORAL 2/WK dextrose 40 % 15 g 15 g ORAL PRN Or glucagon 1 mg injection 1 mg INTRAMUSCULAR PRN Or dextrose 10% iv bolus 12.5 g INTRAVENOUS PRN Allergies As of Date: 03/24/2025 Allergen Noted Reaction CRESTOR [ROSUVASTATIN] 11/11/2014 Other: See Comments Fully Assessed 03/24/2025 COMPLETE REVIEW OF SYSTEMS: GENERAL: no fever or chills. Denies recent illness. RESPIRATORY: denies SOB. CARDIOVASCULAR: denies chest pain. No palpitations. GI: No nausea, vomiting, or diarrhea. MUSCULOSKELETAL: positive for arthritis. ENDOCRINE: History of prolactinoma Objective PHYSICAL EXAM: Physical Exam Performed: GENERAL: Alert, no distress, cooperative HEAD/SINUSES: No significant findings OROPHARYNX: MMM. LUNGS: Clear CARDIAC: Rhythm: regular rate and rhythm ABDOMEN: Soft, nontender BP 108/54 Pulse 59 Temp (Src) 97.3 (Oral) Resp 18 Ht 6' 3.984 (1.93m) Wt 298 lb 15.1 oz (135.6kg) SpO2 94% BMI 36.40 kg/(m^2). O2 Therapy: Nasal Cannula, Liters (Numeric Only): 1.00 DATA: Diagnostic tests reviewed for today's visit: No new labs Impression/Recommendations Principal Problem: S/P total knee arthroplasty, unspecified laterality (POA: Yes) Assessment & Plan: Status post surgery today. Patient is medically stable this time. Medical conditions include: History of prolactinoma. Plan to resume preoperative care and follow-up with his primary team. History of impaired fasting glucose. Patient will follow-up with his PCP after discharge. ASA for DVT prophylaxis. Will follow. Thanks. SIGNATURE: Rakan Gill MD PATIENT NAME: Juan Orosco DATE: May 18, 2025 TIME: 3:39 PM [1] Social History Tobacco Use Smoking status: Some Days Current packs/day: 2.00 Average packs/day: 2.0 packs/day for 35.1 years (70.1 ttl pk-yrs) Types: Cigarettes Start date: 04/25/1990 Smokeless tobacco: Never Tobacco comments: 2 cigarettes in the last 3 months Vaping Use Vaping status: Never Used Substance Use Topics Alcohol use: Never Drug use: No [2] ergocalciferol 50,000 unit capsule (VITAMIN D2, DRISDOL), Take 1 capsule by mouth two times a week., Disp: 24 capsule, Rfl: 0, Past Week meloxicam (MOBIC) 15 mg tablet, , Disp: , Rfl: , Past Week acetaminophen (TYLENOL) 500 mg tablet, Take 500 mg by mouth every 4 hours as needed., Disp: , Rfl: , 05/17/2025 metFORMIN (GLUCOPHAGE) 500 mg tablet, , Disp: , Rfl: , 05/16/2025 tamsulosin (FLOMAX) 0.4 mg, , Disp: , Rfl: , 05/16/2025 testosterone (ANDROGEL) 12.5 mg/ 1.25 gram (1 %) transdermal gel, APPLY a total of 4 pumps TO CLEAN, DRY, INTACT SKIN OF SHOULDER AND UPPER ARMS DAILY., Disp: 88 g, Rfl: 2 cabergoline (DOSTINEX) 0.5 mg tablet, Take one tablet 3 days per week., Disp: 36 tablet, Rfl: 3, 05/16/2025 sildenafil (VIAGRA) 100 mg tablet, Take 1 tablet by mouth as needed. 30-60 minutes before sexual intercourse., Disp: 30 tablet, Rfl: 3, Unknown documented in this encounter OR Notes * Brief Op Note - Angelica Baumann DO - 05/18/2025 11:11 AM EST Orthopaedic Surgery BRIEF OPERATIVE / PROCEDURE NOTE LOG ID: [id number] Surgery/Procedure Date: 05/18/2025 Incision/Procedure Start Time: 8:47 AM Incision Close/Procedure End Time: 10:48 AM Surgeon(s)/Proceduralist(s) and Data Analysis Intern(s): Surgeons and Role: * Dany Rossi DO - Primary * Buck Baca DO - Resident - Assisting Nurse Practitioner: Meli Rashid APRN.CNP Procedure(s): Procedure(s) (LRB): QUIANA ROBOTIC ASSISTED TOTAL KNEE ARTHROPLASTY (Left) Anesthesia: Spinal Findings: See full dictation for details Estimated Blood Loss: 100 mls Specimens: .* No specimens in log * Complications: None Implant(s): Implant Name Type Inv. Item Serial No. Patient Care Provider Lot No. LRB No. Used Action SCREW PERSONA 2.5MM FEMALE HEXAGON 25MM HEADFRAME KNEE - [id number] Screw SCREW PERSONA 2.5MM FEMALE HEXAGON 25MM HEADFRAME KNEE [employer] [facility] [id number] Left 1 Non-Implant OSSEOTI CEMENTLESS PATELLA SIZE 35MM - [id number] Joint OSSEOTI CEMENTLESS PATELLA SIZE 35MM [employer] [id number] Left 1 Implanted COMPONENT TIBIAL SIZE H 0DEG LEFT CEMENTLESS KEEL OSSEOTI PERSONA - [id number] Joint - Knee COMPONENT TIBIAL SIZE H 0DEG LEFT CEMENTLESS KEEL OSSEOTI PERSONA [employer] [id number] Left 1 Implanted INSERT PERSONA 12 GH VIVACIT-E 10MM ARTICULAR STERILE LATEX FREE KNEE LEFT - [id number] Joint - Knee INSERT PERSONA 12 GH VIVACIT-E 10MM ARTICULAR STERILE LATEX FREE KNEE LEFT [employer] [id number] Left 1 Implanted PSN FEM CR PPS COCR STD SZ12 L - [id number] Joint - Knee PSN FEM CR PPS COCR STD SZ12 L [employer] [id number] Left 1 Implanted Pre-Op/Pre-Procedure Diagnosis: Primary osteoarthritis of left knee [M17.12] Post-Op/Post-Procedure Diagnosis: same as pre-procedure diagnosis POSTOP PLAN: PACU Imaging: None Weight Bearing Status: WBAT LLE Antibiotics: Completing 24 hours of perioperative then DC Doxycyline 100mg twice daily for 7 days (primary joint arthroplasty). DVT prophylaxis: Aspirin 81mg twice daily for 28 days, SCDs Dressing: Sylke dressing until follow up, mepilex dressing 7-10 days Sliding scale insulin 2 Discharge planning Follow up: Dany Sanchez DO in 2-3 weeks in clinic Juan Orosco will require more than a 7 day supply of 30 morphine equivalent doses per day (MEDD) of narcotic prescription due to their major orthopaedic surgery. Juan Orosco will require a minimum 2-week supply of >30 MEDD to ensure adequate pain control every 4-6 hours, as this is thelevel that was controlling their pain in the hospital. Angelica Baumann DO Orthopaedic Surgery Pager #:[phone] * Brief Op Note - Buck Baca DO - 05/18/2025 11:05 AM EST Images from the original note were not included. ORTHOPAEDIC SURGERY BRIEF OPERATIVE NOTE LOG ID: [id number] Surgery/Procedure Date: 05/18/2025 Incision/Procedure Start Time: 8:47 AM Incision Close/Procedure End Time: 10:48 AM Surgeon(s)/Proceduralist(s) and Data Analysis Intern(s): Surgeons and Role: * Dany Rossi DO - Primary * Buck Baca DO - Resident - Assisting Procedure(s): Procedure(s) (LRB): QUIANA ROBOTIC ASSISTED TOTAL KNEE ARTHROPLASTY (Left) Anesthesia: Spinal Estimated Blood Loss: 100 mls Specimens: * No specimens in log * Complications: None Pre-Op/Pre-Procedure Diagnosis: End stage left knee degenerative joint disease Post-Op/Post-Procedure Diagnosis: Same Post-op Plan: - Weightbearing: WBAT LLE - AROM: as tolerated with goal of 0-90 degrees in first 3 weeks - Dressing: Mepilex dressing x 7 days post-op, Sylke dressing to remain until follow up at 3 weeks - Pain control: Multimodal including IV and/or oral narcotics, do not exceed 4,000mg Tylenol daily,ensure a stool softener is taken regularly while taking narcotics, may ice and elevate extremity - Drains: N/A - Caro: Per nursing driven protocols - Diet: Carb controlled diet, Sliding Scale 2 - HLIV when tolerating adequate PO - DVT Prophylaxis: Aspirin 81mg BID x 4 wks, SCDs - Antibiotics: Ancef periop 24 hrs, Doxycycline 100 mg BID x 7 days beginning POD1 - Cultures: N/A - Consults: PT/OT, care management, [facility], appreciate recs - Dispo: OK for same day discharge, discharge pending pain control and PT/OT eval Plan of care discussed with: Provider, RN, Patient. Patient was accompanied to the next level of care by a licensed practitioner from the surgical teampending completion of this brief op note (or operative note) SIGNATURE: Buck Baca DO PATIENT NAME: Juan Orosco DATE: 05/18/2025 TIME: 11:05 AM PAGER/CONTACT #: [phone] * Operative Report - Dany Rossi DO - 05/18/2025 7:43 AM EST OPERATIVE NOTE PATIENT NAME: Juan Orosco LOG ID: [id number] Surgery Date: 05/18/2025 Surgeon(s) and Data Analysis Intern(s): Surgeons and Role: * Dany Rossi DO - Primary * Buck Baca DO - Resident - Assisting Lindsey Rashid PA- Assist Procedure(s): Procedure(s) (LRB): QUIANA ROBOTIC ASSISTED TOTAL KNEE ARTHROPLASTY (Left) Computer-assisted Navigation procedure Type of image obtained preoperatively for computer-assisted navigation procedure- Imageless BMI: Estimated body mass index is 36.4 kg/m?? as calculated from the following: Height as of 04/25/25: 193 cm (6' 4 ). Weight as of 04/25/25: 135.6 kg (299 lb). Anesthesia: Spinal Operative Time: Total operative time from wheels in to wheels out, including anesthesia time was * Missing case tracking time(s) * Incision Start: 8:47 AM Incision Stop: Attestation: I was present for all of the critical portions of the operation and performed all critical portions. The resident/PA performed the superficial closure under supervision, and assisted during the operation. I was immediately available for the duration of the entire case. Preop Diagnosis: Pre-Op Diagnosis Codes: * Primary osteoarthritis of left knee [M17.12] Postop Diagnosis: Same as Pre-Op Diagnosis Codes: * Primary osteoarthritis of left knee [M17.12] Findings: severe OA EBL: 100 cc Implants: Implant Name Type Inv. Item Serial No. Patient Care Provider Lot No. LRB No. Used Action SCREW PERSONA 2.5MM FEMALE HEXAGON 25MM HEADFRAME KNEE - [id number] Screw SCREW PERSONA 2.5MM FEMALE HEXAGON 25MM HEADFRAME KNEE [employer] [id number] Left 1 Non-Implant OSSEOTI CEMENTLESS PATELLA SIZE 35MM - [id number] Joint OSSEOTI CEMENTLESS PATELLA SIZE 35MM [employer] [id number] Left 1 Implanted COMPONENT TIBIAL SIZE H 0DEG LEFT CEMENTLESS KEEL OSSEOTI PERSONA - [id number] Joint - Knee COMPONENT TIBIAL SIZE H 0DEG LEFT CEMENTLESS KEEL OSSEOTI PERSONA [employer] [id number] Left 1 Implanted INSERT PERSONA 12 GH VIVACIT-E 10MM ARTICULAR STERILE LATEX FREE KNEE LEFT - [id number] Joint - Knee INSERT PERSONA 12 GH VIVACIT-E 10MM ARTICULAR STERILE LATEX FREE KNEE LEFT [employer] [id number] Left 1 Implanted PSN FEM CR PPS COCR STD SZ12 L - [id number] Joint - Knee PSN FEM CR PPS COCR STD SZ12 L [employer] [id number] Left 1 Implanted Problem List: ACTIVE PROBLEM LIST Benign Neoplasm of Pituitary Gland and Craniopharyngeal Duct (Pouch) (Hcc) Hypogonadism Male Prolactinoma (Hcc) Macroprolactinoma (Hcc) History of Prolactinoma Prediabetes History of Nicotine Use Bmi 36.0-36.9,Adult OPERATIVE INDICATIONS: The patient has a long history of progressive left knee pain, arthritis, anddegeneration. They have developed deformity in the knee from wear and bone loss. Non-operative treatment and Physical Therapy have been attempted on the knee, but have not improved or controlled the symptoms and pain that occurs during normal daily activities. Knee motion has also become limited and is restricting the patient. Total knee arthroplasty was recommended. The risks, benefits and potential complications of the arthroplasty surgery were discussed with the patient in detail. Specific details of the surgical procedure, hospitalization, recovery, rehabilitation, and long-term precautions were also presented. Pre-operative teaching was provided. Implant/prosthesis selection was outlined, and the many options available were explained; the final choice will be made at the time of the procedure to match the anatomy and condition of the bone, ligaments, tendons, and muscles. The patient was seen by [facility] for pre-operative optimization, and risk assessment. Brie-operative blood management and the potential for blood transfusion were discussed with risks and options clearly outlined. Understanding of all topics was conveyed to me by the patient pre-ope ratively, and patient consent was given to proceed with the left total knee replacement. OPERATIVE PROCEDURE: The patient was identified and brought into the Operating Room by the anesthesia and nursing teams. Anesthesia was successfully performed. The patient was then positioned supine on the operating room table, and all bony prominences were padded. Intravenous antibiotic prophylaxis dosing was confirmed. A padded tourniquet was applied to the left upper thigh. A full knee exam was done after anesthesia was in full effect. The leg was prepped and draped in the usual sterile fashion. Tranexamic acid was given prior to incision and again at the time of closure for blood conservation. A surgical time-out was performed immediately preceding the incision with all personnel in the operating room; the patient identity was again confirmed, the knee-surgical site and extremity were identified and confirmed, X-rays were reviewed, and availability of the appropriate surgical equipment was established. The knee was exsanguinated and exposed using a limited anterior-midline skin incision. Dissection was carried down through skin and subcutaneous tissue to the extensor mechanism with a scalpel. A median para-patellar arthrotomy was made to enter the knee space with bovie. A large amount of normal appearing joint fluid was encountered and suctioned. The synovium was thickened, hypertrophic, and inflamed. A partial synovectomy was performed for exposure, and the medial and lateral gutters were cleared of scar and synovial reflections. The deep medial collateral ligament was carefully elevated off osteophytes. Degenerative anterior meniscal remnants were excised medially and laterally. The patellar synovial reflections were released and the patella exposed. Full-thickness and size of the patella was confirmed with instrumentation. Caliper then placed around the patella, saw used to resect a ppropriate amount of bone for size of patella, healthy remnant with greater than 11mm thickness wasappreciated. Full-thickness again assessed and patellar protector sleeve was placed, . The patella was then subluxed laterally. The knee was then flexed up to 90 degrees. Assessment of the joint revealed severe articular damage as described above. The medial and lateral compartments were severely eburnated with bone loss.. The anterior cruciate ligament was found to be functionally compromised and it was excised. The posterior cruciate ligament was intact and retained. Osteophytes were removed from the notch. The femoral and tibial ray were placed intra-articular. Registration of the knee was performed bothwith motion and checkpoints in all the required positions. Appropriate osteophytes were removed at this time in both the femoral and tibial bones. Assessment of the soft tissues was performed at extension, 45?? flexion, and 90?? of flexion. This was first accomplished with manual stress at these locations in both varus and valgus positioning. Assessment was also performed utilizing 1-6 millimeter sizing gauges at these positions. Data was analyzed. Changes to the preoperative plan were then carried out to balance both the flexion and extension gaps andalso the varus and valgus gaps. Appropriate planned bone resection was confirmed. The robotic arm was then utilized to execute the plan. Distal femoral cut was performed. Resection cut block holes were drilled. Appropriate cuts were performed. Remaining bone and meniscus were thencarefully removed at this time. Bone hook used on the femur in 90?? of flexion, back of the knee was cleared of osteophytes on the posterior condyles. We also removed remnant menisci and loose bodies. Pain cocktail was placed underparticular protocol of disbursement. The proximal tibia was then sized and a trial tibial tray was placed. The tray was rotated so that its midpoint was at the junction of middle one-third and lateral two-thirds of the tibial tubercle. Screws fixed the trial in this position, and trial reductions were done. Trial reduction demonstrated the knee achieved full extension with excellent stability and range ofmotion, with no tendency toward mid flexion instability with varus-valgus stress. The patella was sized with the symmetric guide, and drill holes were made. A trial button was placed and tracking of the patella and the entire knee trial was excellent; range of motion was excellent. No instability. Patella tracked midline . Press-fit punches and drills were then placed through the trials to accommodate the final implants.All trials were removed. The wound was copiously lavaged with a pulse irrigation/suction system. The posterior recess of the knee and areas of known bleeding were treated with the electrocautery to reduce post-operative bleeding. The cut bone surfaces were then irrigated again, suctioned, and dried. The final implants were placed, tibia followed by femur followed by patella. The final medial congruent polyethylene was impacted into place. The tourniquet was released and no excessive bleeding wasencountered. Synovial bleeding was further treated with the electrocautery. The wound was again irrigated. A pain cocktail was injected into the brie-articular tissues. The extensor mechanism and capsule was then anatomically closed with interrupted and running suture. Knee stability and range of motion with the capsule closed was excellent, and range of motion was 0 to 135 without excessive stress on the repair. Instrument and sponge count was completed and confirmed correct. Deep and superficial subcutaneous tissue was closed with interrupted suture. A running subcuticular stitch was used to re-approximate the skin edges. Layered sterile dressing was placed. PAS stockings were placed. Thepatient tolerated the procedure, was transferred from the operating room table to a hospital bed, and taken to Recovery/PACU in stable condition. SPECIMEN SENT TO PATHOLOGY: None PAIN COCKTAIL: Exparel 20 cc, Bupivicaine 0.25% 15 cc, saline 15 cc Counts: Correct. Complications: None apparent. Addendum: This is a major orthopaedic surgery that will require extended time and quantity of narcotic pain control over the course of the patients recovery. Recent acute pain control criteria do not pertain to this patient. Based upon the patients age and/or comorbidities listed below: ACTIVE PROBLEM LIST Benign Neoplasm of Pituitary Gland and Craniopharyngeal Duct (Pouch) (Hcc) Hypogonadism Male Prolactinoma (Hcc) Macroprolactinoma (Hcc) History of Prolactinoma Prediabetes History of Nicotine Use Bmi 36.0-36.9,Adult It is the medical decision of the attending physician that the patient requires care that can only be provided in an inpatient hospital setting. Therefore, the patient should be admitted as inpatientstatus and will be discharged as soon as the patient is medically stable for discharge and their safety can be assured through assessment by the physical therapy department. SIGNATURE: Dany Rossi DO DATE: May 18, 2025 TIME: 10:43 AM documented in this encounter Miscellaneous Notes * Plan of Care - Neville Hooks CPhT - 05/18/2025 4:42 PM EST Images from the original note were not included. PHARMACY BEDSIDE DELIVERY SERVICE Patient Name: Juan Orosco The marked outpatient medications were Filled at: [facility] and delivered to the patient's bedside to patient. Medication List START taking these medications aspirin, enteric coated 81 mg EC tablet Commonly known as: ECOTRIN LOW STRENGTH Take 1 tablet by mouth two times a day for 28 days. DELIVERED docusate sodium 100 mg capsule Commonly known as: COLACE Take 1 capsule by mouth two times a day. DELIVERED doxycycline hyclate 100 mg capsule Commonly known as: VIBRAMYCIN Take 1 capsule by mouth two times a day for 7 days. DELIVERED methocarbamol 750 mg tablet Commonly known as: ROBAXIN Take 1 tablet by mouth three times a day for 14 days. DELIVERED omeprazole 20 mg capsule Commonly known as: PriLOSEC Take 1 capsule by mouth once daily. DELIVERED oxyCODONE IR 5 mg immediate release tablet Commonly known as: ROXICODONE Take 1-2 tablets by mouth every 4 hours as needed for pain for up to 7 days. DELIVERED CHANGE how you take these medications * acetaminophen 500 mg tablet Commonly known as: TYLENOL What changed: Another medication with the same name was added. Make sure you understand how and when to take each. DELIVERED * acetaminophen 500 mg tablet Commonly known as: TYLENOL EXTRA STRENGTH Take 2 tablets by mouth every 8 hours as needed for pain. What changed: You were already taking a medication with the same name, and this prescription was added. Make sure you understand how and when to take each. NO RX SENT-NOT DELIVERED (DUPLICATED ENTRY) * ergocalciferol (vitamin D2) 50,000 unit capsule Commonly known as: DRISDOL Take 1 capsule by mouth two times a week. What changed: Another medication with the same name was added. Make sure you understand how and when to take each. RX SENT-NOT DELIVERED (REFILL TOO SOON, PATIENT AWARE) * ergocalciferol (vitamin D2) 50,000 unit capsule Commonly known as: DRISDOL Take 2 capsules by mouth one time a week. What changed: You were already taking a medication with the same name, and this prescription was added. Make sure you understand how and when to take each. NO RX SENT-NOT DELIVERED (DUPLICATED ENTRY) * meloxicam 15 mg tablet Commonly known as: MOBIC What changed: Another medication with the same name was added. Make sure you understand how and when to take each. DELIVERED * meloxicam 15 mg tablet Commonly known as: MOBIC Take 1 tablet by mouth once daily for 14 days. What changed: You were already taking a medication with the same name, and this prescription was added. Make sure you understand how and when to take each. NO RX SENT-NOT DELIVERED (DUPLICATED ENTRY) * This list has 6 medication(s) that are the same as other medications prescribed for you. Read thedirections carefully, and ask your doctor or other care provider to review them with you. CONTINUE taking these medications cabergoline 0.5 mg tablet Commonly known as: DOSTINEX Take one tablet 3 days per week. metFORMIN 500 mg tablet Commonly known as: GLUCOPHAGE sildenafil 100 mg tablet Commonly known as: VIAGRA Take 1 tablet by mouth as needed. 30-60 minutes before sexual intercourse. tamsulosin 0.4 mg Commonly known as: FLOMAX testosterone 12.5 mg/ 1.25 gram (1 %) transdermal gel Commonly known as: AndroGeL APPLY a total of 4 pumps TO CLEAN, DRY, INTACT SKIN OF SHOULDER AND UPPER ARMS DAILY. You might also be taking other medications not listed above. If you have questions about any of your other medications, talk to the person who prescribed them or your Primary Care Provider. May 18, 2025 4:42 PM Neville Hooks CPhT Medication [employer] [phone] * Plan of Care - Neville Hooks CPhT - 05/18/2025 12:34 PM EST Images from the original note were not included. Insurance investigation completed Patient has active prescription insurance: Yes - Patient's insurance is in- network with F Insurance loaded into [place]: Yes Test claim was completed to verify insurance is active: Successful Is patient eligible for [facility]? No Any questions, please reach out to your medication access tech. Neville Hooks CPhT Medication Community Coordinator [employer] [id number] documented in this encounter Plan of Treatment Upcoming Encounters Date Type Department Care Team (Latest Contact Info) Description 06/10/2025 12:30 PM EST Appointment Radiology [address] [place] [address] post op xray left knee 06/10/2025 1:00 PM EST Nurse Visit Orthopaedics [address] [place], [place] [id number] Babak Arambula, JESSICA [address] [place], [place] [id number] Surgical post op 07/21/2025 11:00 AM EST [facility] Endocrinology [address] [place], [place] [id number] Dinora Bourgeois MD [address] [place] [address] Follow-up pituitary tumor and medication refill 08/04/2025 3:40 PM EST [facility] [address] [place], [place] [phone] Dany Rossi DO [address] [place] [address] 3 month phone Surgical post op documented as of this encounter Goals Goal Patient Goal Type Associated Problems Recent Progress Patient-Stated? 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 Rail Engineer No Brigid Parker Autogenerated Goal Care Plan Autogenerated Problem No Brigid Parker documented as of this encounter Procedures Procedure Name Priority Date/Time Associated Diagnosis Comments GLUCOSE, BLOOD (POC) Routine 05/18/2025 12:22 PM EST ARTHRP KNE CONDYLE&PLATU MEDIAL&LAT COMPARTMENTS 05/18/2025 7:43 AM EST Primary osteoarthritis of left knee GLUCOSE, BLOOD (POC) Routine 05/18/2025 7:03 AM EST documented in this encounter Results * GLUCOSE, BLOOD (POC) (05/18/2025 12:22 PM EST) [facility] Glucose, Point of Care 99 74 - 99 mg/dL [facility] Comment: Location:[facility], [address] [place] [address], Formerly [facility] The Accu-Chek Inform II glucose meter has not been approved for testing on patients receiving intensive medical intervention or therapy and results from this point of care glucose test should not be used for patient management decisions in these cases. Inaccurate results may also occur from other interfering factors, such as N-acetylcysteine (blood concentrations of greater than 5mg/dL), galactose, extremes of hematocrit (<10 or >65), or high doses of ascorbic acid (vitamin C) greater than 3mg/dL. Consider alternate testing mechanisms (e.g. core lab, blood gas instrument) in the above situations. 05/18/2025 12:2 2 PM EST Dany Rossi DO POC TESTING Final Resul t Performing Organization Address [facility] Co de Phone Number [address] * (ABNORMAL) GLUCOSE, BLOOD (POC) (05/18/2025 7:03 AM EST) [facility] Glucose, Point of Care 116(A) 74 - 99 mg/dL [facility] Comment: Location:[facility], [address] [place] [address], Formerly [facility] The Accu-Chek Inform II glucose meter has not been approved for testing on patients receiving intensive medical intervention or therapy and results from this point of care glucose test should not be used for patient management decisions in these cases. Inaccurate results may also occur from other interfering factors, such as N-acetylcysteine (blood concentrations of greater than 5mg/dL), galactose, extremes of hematocrit (<10 or >65), or high doses of ascorbic acid (vitamin C) greater than 3mg/dL. Consider alternate testing mechanisms (e.g. core lab, blood gas instrument) in the above situations. 05/18/2025 7:03 AM EST Dany Rossi DO POC TESTING Final Resul t Performing Organization Address [facility] de Phone Number [address] documented in this encounter Visit Diagnoses Diagnosis S/P total knee arthroplasty, unspecified laterality- Primary Post-op pain Other acute postoperative pain documented in this encounter Admitting Diagnoses Diagnosis S/P total knee arthroplasty, unspecified laterality documented in this encounter Administered Medications Inactive Administered Medications - up to 3 most recent administrations Medication Order MAR Action Action Date Dose Rate Site acetaminophen 1,000 mg tab(s) (TYLENOL) 1,000 mg, ORAL, EVERY 8 HOURS, First dose on Fri05/18/25 at 1230, Until Discontinued Given 05/18/2025 12:46 PM EST 1,000 mg ceFAZolin iv piggyback 2 g in D5W (iso-osmotic) 100 mL (ANCEF) 2 g, INTRAVENOUS, at 200 mL/hr, Administer over 30 Minutes, EVERY 8 HOURS, 2 doses, First dose on 05/18/25 at 1700, Last dose on 05/19/25 at 0100, ALL DOSES TO BE ADMINISTERED WITHIN 24 HOURS OF ANESTHESIA END TIME LAST DOSE TO BE OMITTED IF TIMING IS BEYOND 24 HOUR ANESTHESIA END TIME Refrigerate, Antimicrobial indication: Prophylaxis, Pharmacist may modify dose per [facility] dose optimization consult agreement: Yes New Bag/Syringe/Bottl e 05/18/2025 4:03 PM EST 2 g 200 mL/hr dextrose 10% iv bolus 125 mL (12.5 g), INTRAVENOUS, at 750 mL/hr, Administer over 10 Minutes, NEEDED, Starting on Fri05/18/25 at 1229, Until Fri05/18/25 at 1927, low blood sugar, Use when blood glucose is less than 70 mg/dL (60 mg/dL if ) and patient has IV access Program on smart pump using dextrose 10% bolus file - NONCYTOTOXIC VESICANT - dextrose 40 % 15 g 15 g, ORAL, NEEDED, Starting on Fri05/18/25 at 1229, Until Fri05/18/25 at 1927, low blood sugar, Use when blood glucose is less than 70 mg/dL (60 mg/dL if ) and patient demonstrates diminished level of consciousness but is able to swallow without risk of aspiration Each 37.5 gram TUBE of dextrose 40% oral gel delivers a DOSE = 15 GRAMS of CARBOHYDRATE --- Administer ONLY if the patient is awake/alert and able to swallow. ergocalciferol (vitamin D2) 50,000 Units cap(s) (DRISDOL) 50,000 Units, ORAL, 2 TIMES WEEKLY, 30 doses, First dose on 05/18/25 at 1230, Last dose on 08/13/25 at 1230, Swallow whole; DO NOT crush, chew, or open. Given 05/18/2025 12:46 PM EST 50,000 Units fentaNYL 50 mcg/mL 50 mcg injection (SUBLIMAZE) 50 mcg, INTRAVENOUS, EVERY 10 MINUTES NEEDED, 4 doses, Starting on Fri05/18/25 at 1054, Until Fri05/18/25 at 1216, FIRST LINE THERAPY for pain score 1 or greater, USE FOR MILD PAIN (1-3) ONLY IF PATIENT IS UNABLE TO TOLERATE ORAL THERAPY, Recovery or Phase I (only) Given 05/18/2025 11:25 AM EST 50 mcg glucagon 1 mg injection 1 mg, INTRAMUSCULAR, NEEDED, Starting on Fri05/18/25 at 1229, Until Fri05/18/25 at 1927, low blood sugar, Use when blood glucose is less than 70 mg/dL (60 mg/dL if ) and patient has no IV access HYDROmorphone 0.2 mg injection (DILAUDID) 0.2 mg, INTRAVENOUS, EVERY 5 MINUTES NEEDED, 10 doses, Starting on Fri05/18/25 at 1054, Until Fri05/18/25 at 1216, SECOND LINE THERAPY for pain score 1 or greater, USE FOR MILD PAIN (1-3) ONLY IF PATIENT IS UNABLE TO TOLERATE ORAL THERAPY Caution: IV hydromorphone is approximately 8 times MORE POTENT than IV morphine. For example, hydromorphone 1mg IV = morphine 8mg IV, Recovery or Phase I (only) Given 05/18/2025 11:40 AM EST 0.2 mg lactated ringers iv infusion 5-30 mL/hr, INTRAVENOUS, CONTINUOUS, Starting on Fri05/18/25 at 0700, Until Fri05/18/25 at 1215, Preprocedure New Bag/Syringe/Bottl e 05/18/2025 6:54 AM EST 30 mL/hr 30 mL/hr lactated ringers iv infusion 5-30 mL/hr, INTRAVENOUS, CONTINUOUS, Starting on Fri05/18/25 at 1100, Until Fri05/18/25 at 1216, Recovery or Phase I (only) New Bag/Syringe/Bottl e 05/18/2025 11:41 AM EST 30 mL/hr 30 mL/hr lactated ringers iv infusion 75 mL/hr, INTRAVENOUS, CONTINUOUS, Starting on Fri05/18/25 at 1230, Until Fri05/18/25 at 1927, Stop with adequate PO intake or after 24 hours New Bag/Syringe/Bottl e 05/18/2025 12:30 PM EST 75 mL/hr 75 mL/hr methocarbamol 1 g injection (ROBAXIN) 1 g, INTRAVENOUS, ONCE, 1 dose, On Fri05/18/25 at 1130 Given 05/18/2025 11:10 AM EST 1 g ondansetron (PF) 4 mg injection (ZOFRAN) 4 mg, INTRAVENOUS, EVERY 6 HOURS NEEDED, Starting on Fri05/18/25 at 1216, Until Fri05/18/25 at 1926, Nausea/Vomiting - First Line - Parenteral, Give IV push over 2 minutes. Use when patient unable to take medications by mouth. ondansetron 4 mg tab(s) (ZOFRAN) 4 mg, ORAL, EVERY 6 HOURS NEEDED, Starting on Fri05/18/25 at 1216, Until Fri05/18/25 at 1926, Nausea/Vomiting - First Line - Enteral, Use when patient is able to take medications by mouth. oxyCODONE IR 5-10 mg tab(s) (ROXICODONE) 5-10 mg, ORAL, EVERY 3 HOURS NEEDED, Starting on Fri05/18/25 at 1216, Until Fri05/18/25 at 1926, Moderate Pain (4-6) - Enteral, Severe Pain (>/=7) - Enteral, 5mg moderate, 10mg severe Given 05/18/2025 4:00 PM EST 10 mg Given 05/18/2025 12:46 PM EST 10 mg potassium chloride ER 20-40 mEq tab(s) (KLOR-CON) 20-40 mEq, ORAL, NEEDED, Starting on Fri05/18/25 at 1216, Until Fri05/18/25 at 1926, Low Potassium, see admin instructions, DO NOT USE FOR PATIENTS WITH SCR GREATER THAN 1.4, DIALYSIS, RHABDOMYOLYSIS, DKA, AGE LESS THAN 15, OR WEIGHT LESS THAN 40 KG Use when patient is able to take oral medications K+ Level Dose Re-Check 3.4-3.9 mg/dl 20 mEq am labs Less than 3.4 mg/dl 40 mEq 2 hours Swallow whole; DO NOT crush or chew. If patient unable to swallow whole tablet; dissolve whole tablet (do not crush) in 120 mL of water prior to administration (may take up to 2 minutes to dissolve). potassium chloride iv piggyback 20 mEq/100 mL 20 mEq, INTRAVENOUS, at 50-100 mL/hr, Administer over 1-2 Hours, NEEDED, Starting on Fri05/18/25 at 1216, Until Fri05/18/25 at 1926, Low Potassium, see admin instructions, DO NOT USE FOR PATIENTS WITH SCR GREATER THAN 1.4, DIALYSIS, RHABDOMYOLYSIS, DKA, AGE LESS THAN 15, OR WEIGHT LESS THAN 40 KG Use when patient is unable to take oral medications K+ Level Dose Re-Check 3.4-3.9 mg/dl 20 mEq am labs Less than 3.4 mg/dl 40 mEq (20 mEq q1h x 2 doses) 2 hours NONCYTOTOXIC VESICANT If ordered with infusion rate range, start with maximum infusion rate and decrease rate if infusion is not tolerated tranexamic acid (CYKLOKAPRON) in NaCl 0.7% 1,000 mg 100 mL 1,000 mg, INTRAVENOUS, at 600 mL/hr, Administer over 10 Minutes, PRE-OP ONCE, 1 dose, On Fri05/18/25 at 0700, Maximum infusion rate 100 mg/min., Preprocedure New Bag/Syringe/Bottle 05/18/2025 6:57 AM EST 1,000 mg 600 mL/hr documented in this encounter Active and Recently Administered Medications Times are shown in EST. Scheduled Medication Order 05/16/2025 05/17/2025 05/18/2025 acetaminophen 1,000 mg tab(s) (TYLENOL) 1,000 mg, ORAL, EVERY 8 HOURS, First dose on Fri05/18/25 at 1230, Until Discontinued 1246 (Given - Provid er: Nikko Gutierrez RN) ascorbic acid (vitamin C) 500 mg tab(s) (VITAMIN C) 500 mg, ORAL, 2 TIMES DAILY W/MEALS, 28 doses, First dose on Fri05/19/25 at 0750, Last dose on Fri06/01/25 at 1700 aspirin, enteric coated 81 mg tab(s) 81 mg, ORAL, 2 TIMES DAILY, First dose on Fri05/19/25 at 0900, Until Discontinued, DO NOT crush. bisacodyl EC 10 mg tab(s) (DULCOLAX) 10 mg, ORAL, DAILY, First dose on Fri05/20/25 at 0900, Until Discontinued, DO NOT give with milk, dairy products, or antacids. DO NOT CRUSH. HOLD FOR DIARRHEA Starting Post-Op Day #2 Swallow whole; DO NOT crush or chew. ceFAZolin 3 g in D5W 100 mL (ANCEF) (COMPLETED) 3 g, INTRAVENOUS, at 200 mL/hr, Administer over 30 Minutes, PRE-OP ONCE, 1 dose, On Fri05/18/25 at 0700, Orthopedic Cases - MRSA Negative or Low Risk PRE-OP ANTIBIOTIC ADMINISTER ONLY IN SURGICAL AREA DO NOT ADMINSTER ON THE FLOOR, Antimicrobial indication: Prophylaxis, Preprocedure 0656 (Sent with Marylu ent - Provider: Ariane Goyal RN)0824 (Given - Provider: Yemi Gomez APRN.ALEX) ceFAZolin iv piggyback 2 g in D5W (iso-osmotic) 100 mL (ANCEF) 2 g, INTRAVENOUS, at 200 mL/hr, Administer over 30 Minutes, EVERY 8 HOURS, 2 doses, First dose on Fri05/18/25 at 1700, Last dose on Fri05/19/25 at 0100, ALL DOSES TO BE ADMINISTERED WITHIN 24 HOURS OF ANESTHESIA END TIME LAST DOSE TO BE OMITTED IF TIMING IS BEYOND 24 HOUR ANESTHESIA END TIME Refrigerate, Antimicrobial indication: Prophylaxis, Pharmacist may modify dose per [facility] dose optimization consult agreement: Yes 1605 (New Bag/Syring e/Bottle - Provider: Nikko Gutierrez RN)1630 (Infusion Complete - Provider: Nikko Gutierrez RN) docusate sodium 100 mg cap(s) (COLACE) 100 mg, ORAL, 2 TIMES DAILY, First dose on Fri05/19/25 at 0900, Until Discontinued, Swallow whole; DO NOT crush, chew, or open. doxycycline hyclate 100 mg cap(s) (VIBRAMYCIN) 100 mg, ORAL, EVERY 12 HOURS 6AM/6PM, 14 doses, First dose on Fri05/19/25 at 0600, Last dose on Fri05/25/25 at 1800, Administer at least two hours before or after antacids, calcium, iron, magnesium, aluminum or foods containing these items. Administration via GI feeding tube: doxycycline absorption is dependent on the site of drug release in the gastrointestinal (GI) tract (gastric versus small intestine). When administering doxycycline via a feeding tube, confirm gastric placement of the tube., Antimicrobial indication: Pathogen-directed, Infectious source(s): Bone and joint, Pharmacist may modify dose per [facility] dose optimization consult agreement: Yes ergocalciferol (vitamin D2) 50,000 Units cap(s) (DRISDOL) 50,000 Units, ORAL, 2 TIMES WEEKLY, 30 doses, First dose on Fri05/18/25 at 1230, Last dose on Fri08/13/25 at 1230, Swallow whole; DO NOT crush, chew, or open. 1246 (Given - Provid er: Nikko Gutierrez RN) insulin lispro injection (rapid acting) (ADMElog) SUBCUTANEOUS, WITH MEALS, First dose on Fri05/18/25 at 1300, Until Discontinued, ADMINISTER CORRECTIONAL INSULIN REGARDLESS OF MEAL OR NUTRITION INTAKE Scale 2 If Blood Glucose (mg/dL) is: Less than 110 Give 0 units 111-150 Give 0 units 151-200 Give 2 units 201-250 Give 4 units 251-300 Give 6 units 301-350 Give 8 units 351-400 Give 10 units Greater than 400 Give 10 units and Notify Provider Notify provider if 2 consecutive blood glucose values in the previous 24 hours are greater than 250 mg/dL and there have been no changes to the insulin regimen in the previous 24 hours. 1300 (Not Given - Pr ovider: Nikko Gutierrez RN - Reason: Lab/Clinical Condition Not Within parameters)1700 (Due) insulin lispro injection (rapid acting) (ADMElog) SUBCUTANEOUS, AT BEDTIME, First dose on Fri05/18/25 at 2100, Until Discontinued, ADMINISTER CORRECTIONAL INSULIN REGARDLESS OF MEAL OR NUTRITION INTAKE Scale 2 If Blood Glucose (mg/dL) is: Less than 110 Give 0 units 111-150 Give 0 units 151-200 Give 2 units 201-250 Give 4 units 251-300 Give 6 units 301-350 Give 8 units 351-400 Give 10 units Greater than 400 Give 10 units and Notify Provider Notify provider if 2 consecutive blood glucose values in the previous 24 hours are greater than 250 mg/dL and there have been no changes to the insulin regimen in the previous 24 hours. methocarbamol 1 g injection (ROBAXIN) (COMPLETED) 1 g, INTRAVENOUS, ONCE, 1 dose, On Fri05/18/25 at 1130 1110 (Given - Provid er: Luana Jenkins RN) senna 17.2 mg tab(s) (SENOKOT) 17.2 mg, ORAL, AT BEDTIME, First dose on Fri05/18/25 at 2100, Until Discontinued tranexamic acid (CYKLOKAPRON) in NaCl 0.7% 1,000 mg 100 mL (COMPLETED) 1,000 mg, INTRAVENOUS, at 600 mL/hr, Administer over 10 Minutes, PRE-OP ONCE, 1 dose, On Fri05/18/25 at 0700, Maximum infusion rate 100 mg/min., Preprocedure 0657 (New Bag/Syring e/Bottle - Provider: Ariane Goyal RN) tranexamic acid (CYKLOKAPRON) in NaCl 0.7% 1,000 mg 100 mL (COMPLETED) 1,000 mg, INTRAVENOUS, at 600 mL/hr, Administer over 10 Minutes, ONCE, 1 dose, On Fri05/18/25 at 0700, To be given in OR at end of case, Preprocedure 0657 (Sent with Marylu ent - Provider: Ariane Goyal RN)1011 (New Bag/Syringe/Bottle - Provider: Yemi Gomez, CLASSIFYING MACHINE OPERATOR.COAT FINISHER) Continuous Medication Order 05/16/2025 05/17/2025 05/18/2025 lactated ringers iv infusion (CANCELED) 5-30 mL/hr, INTRAVENOUS, CONTINUOUS, Starting on Fri05/18/25 at 0700, Until Fri05/18/25 at 1215, Preprocedure 0654 (New Bag/Syring e/Bottle - Provider: Ariane Goyal RN)1215 (Infusion Complete - Provider: Nikko Gutierrez RN - Comment: [Order ends at this time. Document the following action when infusion is complete: Infusion Complete]) lactated ringers iv infusion (CANCELED) 5-30 mL/hr, INTRAVENOUS, CONTINUOUS, Starting on Fri05/18/25 at 1100, Until Fri05/18/25 at 1216, Recovery or Phase I (only) 1141 (New Bag/Syring e/Bottle - Provider: Luana Jenkins RN)1216 (Infusion Complete - Provider: Nikko Gutierrez RN - Comment: [Order ends at this time. Document the following action when infusion is complete: Infusion Complete]) lactated ringers iv infusion 75 mL/hr, INTRAVENOUS, CONTINUOUS, Starting on Fri05/18/25 at 1230, Until Fri05/18/25 at 1927, Stop with adequate PO intake or after 24 hours 1230 (New Bag/Syring e/Bottle - Provider: Nikko Gutierrez RN)192 (Due: Order Ending - Provider: Reg In Adtr - Comment: [Order ends at this time. Document the following action when infusion is complete: Infusion Complete]) PRN Medication Order 05/16/2025 05/17/2025 05/18/2025 aluminum-magnesium hydroxide-simethicone 200-200-20 mg/5 mL 30 mL 30 mL, ORAL, EVERY 2 HOURS NEEDED, Starting on Fri05/18/25 at 1216, Until Fri05/18/25 at 1927, GI upset, SHAKE WELL bupivacaine (PF) 0.25 % (2.5 mg/mL) 15 mL, BUPivacaine liposome (PF) 20 mL in NaCl (PF) 0.9% 15 mL (CANCELED) X (OR/PROCEDURE) PRN, Starting on Fri05/18/25 at 0850, Until Fri05/18/25 at 1101, Intraprocedure 0950 (Given - Provid er: Dany Rossi DO)1033 (Given - Provider: Dany Rossi DO) dextrose 10% iv bolus(Linked Group 1) 125 mL (12.5 g), INTRAVENOUS, at 750 mL/hr, Administer over 10 Minutes, NEEDED, Starting on Fri05/18/25 at 1229, Until Fri05/18/25 at 1927, low blood sugar, Use when blood glucose is less than 70 mg/dL (60 mg/dL if ) and patient has IV access Program on smart pump using dextrose 10% bolus file - NONCYTOTOXIC VESICANT - dextrose 40 % 15 g(Linked Group 1) 15 g, ORAL, NEEDED, Starting on Fri05/18/25 at 1229, Until Fri05/18/25 at 1927, low blood sugar, Use when blood glucose is less than 70 mg/dL (60 mg/dL if ) and patient demonstrates diminished level of consciousness but is able to swallow without risk of aspiration Each 37.5 gram TUBE of dextrose 40% oral gel delivers a DOSE = 15 GRAMS of CARBOHYDRATE --- Administer ONLY if the patient is awake/alert and able to swallow. fentaNYL 50 mcg/mL 50 mcg injection (SUBLIMAZE) (CANCELED) 50 mcg, INTRAVENOUS, EVERY 10 MINUTES NEEDED, 4 doses, Starting on Fri05/18/25 at 1054, Until Fri05/18/25 at 1216, FIRST LINE THERAPY for pain score 1 or greater, USE FOR MILD PAIN (1-3) ONLY IF PATIENT IS UNABLE TO TOLERATE ORAL THERAPY, Recovery or Phase I (only) 1125 (Given - Provid er: Luana Jenkins RN) glucagon 1 mg injection(Linked Group 1) 1 mg, INTRAMUSCULAR, NEEDED, Starting on Fri05/18/25 at 1229, Until Fri05/18/25 at 1927, low blood sugar, Use when blood glucose is less than 70 mg/dL (60 mg/dL if ) and patient has no IV access HYDROmorphone 0.2 mg injection (DILAUDID) (CANCELED) 0.2 mg, INTRAVENOUS, EVERY 5 MINUTES NEEDED, 10 doses, Starting on Fri05/18/25 at 1054, Until Fri05/18/25 at 1216, SECOND LINE THERAPY for pain score 1 or greater, USE FOR MILD PAIN (1-3) ONLY IF PATIENT IS UNABLE TO TOLERATE ORAL THERAPY Caution: IV hydromorphone is approximately 8 times MORE POTENT than IV morphine. For example, hydromorphone 1mg IV = morphine 8mg IV, Recovery or Phase I (only) 1140 (Given - Provid er: Luana Jenkins RN) magnesium hydroxide 400 mg/5 mL 30 mL (MOM) 30 mL, ORAL, ONCE DAILY NEEDED, Starting on 05/19/25 at 0000, Until Fri05/18/25 at 1927, Constipation - First Line - Enteral, SHAKE WELL Starting Post-Op Day #1 melatonin 3 mg tab(s) 3 mg, ORAL, AT BEDTIME NEEDED, Starting on Fri05/18/25 at 1216, Until Fri05/18/25 at 1927, insomnia NaCl 0.9% irrigation bag (CANCELED) X (OR/PROCEDURE) PRN, Starting on Fri05/18/25 at 0852, Until Fri05/18/25 at 1101, Intraprocedure 0852 (Given - Provid er: Dany Rossi, DO - Comment: Used PN thoughout procedure) NaCl 0.9% irrigation solution (CANCELED) X (OR/PROCEDURE) PRN, Starting on Fri05/18/25 at 0851, Until Fri05/18/25 at 1101, Intraprocedure 0851 (Given - Provid er: Dany Rossi, - Comment: On sterile field, used PRN thoughout proccedure) ondansetron (PF) 4 mg injection (ZOFRAN)(Linked Group 2) 4 mg, INTRAVENOUS, EVERY 6 HOURS NEEDED, Starting on Fri05/18/25 at 1216, Until Fri05/18/25 at 192, Nausea/Vomiting - First Line - Parenteral, Give IV push over 2 minutes. Use when patient unable to take medications by mouth. ondansetron 4 mg tab(s) (ZOFRAN)(Linked Group 2) 4 mg, ORAL, EVERY 6 HOURS NEEDED, Starting on Fri05/18/25 at 1216, Until Fri05/18/25 at 192, Nausea/Vomiting - First Line - Enteral, Use when patient is able to take medications by mouth. oxyCODONE IR 5-10 mg tab(s) (ROXICODONE) 5-10 mg, ORAL, EVERY 3 HOURS NEEDED, Starting on Fri05/18/25 at 1216, Until Fri05/18/25 at 192, Moderate Pain (4-6) - Enteral, Severe Pain (>/=7) - Enteral, 5mg moderate, 10mg severe 1246 (Given - Provid er: Nikko Gutierrez RN)1600 (Given - Provider: Nikko Gutierrez RN) potassium chloride ER 20-40 mEq tab(s) (KLOR-CON)(Linked Group 3) 20-40 mEq, ORAL, NEEDED, Starting on Fri05/18/25 at 1216, Until Fri05/18/25 at 1926, Low Potassium, see admin instructions, DO NOT USE FOR PATIENTS WITH SCR GREATER THAN 1.4, DIALYSIS, RHABDOMYOLYSIS, DKA, AGE LESS THAN 15, OR WEIGHT LESS THAN 40 KG Use when patient is able to take oral medications K+ Level Dose Re-Check 3.4-3.9 mg/dl 20 mEq am labs Less than 3.4 mg/dl 40 mEq 2 hours Swallow whole; DO NOT crush or chew. If patient unable to swallow whole tablet; dissolve whole tablet (do not crush) in 120 mL of water prior to administration (may take up to 2 minutes to dissolve). potassium chloride iv piggyback 20 mEq/100 mL(Linked Group 3) 20 mEq, INTRAVENOUS, at 50-100 mL/hr, Administer over 1-2 Hours, NEEDED, Starting on Fri05/18/25 at 1216, Until Fri05/18/25 at 192, Low Potassium, see admin instructions, DO NOT USE FOR PATIENTS WITH SCR GREATER THAN 1.4, DIALYSIS, RHABDOMYOLYSIS, DKA, AGE LESS THAN 15, OR WEIGHT LESS THAN 40 KG Use when patient is unable to take oral medications K+ Level Dose Re-Check 3.4-3.9 mg/dl 20 mEq am labs Less than 3.4 mg/dl 40 mEq (20 mEq q1h x 2 doses) 2 hours NONCYTOTOXIC VESICANT If ordered with infusion rate range, start with maximum infusion rate and decrease rate if infusion is not tolerated povidone-iodine 10 % solution (BETADINE) (CANCELED) X (OR/PROCEDURE) PRN, Starting on Fri05/18/25 at 0852, Until Fri05/18/25 at 1101, Intraprocedure 1018 (Given - Provid er: Dany Rossi, DO - Comment: Mixed ith 100 cc NACL from sterile field) Linked Groups Order Group 1: dextrose 40 % 15 gJump to med 15 g, ORAL, NEEDED, Starting on Fri05/18/25 at 1229, Until Fri05/18/25 at 1927, low blood sugar, Use when blood glucose is less than 70 mg/dL (60 mg/dL if ) and patient demonstrates diminished level of consciousness but is able to swallow without risk of aspiration Each 37.5 gram TUBE of dextrose 40% oral gel delivers a DOSE = 15 GRAMS of CARBOHYDRATE --- Administer ONLY if the patient is awake/alert and able to swallow. Or glucagon 1 mg injectionJump to med 1 mg, INTRAMUSCULAR, NEEDED, Starting on Fri05/18/25 at 1229, Until Fri05/18/25 at 1927, low blood sugar, Use when blood glucose is less than 70 mg/dL (60 mg/dL if ) and patient has no IV access Or dextrose 10% iv bolusJump to med 125 mL (12.5 g), INTRAVENOUS, at 750 mL/hr, Administer over 10 Minutes, NEEDED, Starting on Fri05/18/25 at 1229, Until Fri05/18/25 at 192, low blood sugar, Use when blood glucose is less than 70 mg/dL (60 mg/dL if ) and patient has IV access Program on smart pump using dextrose 10% bolus file - NONCYTOTOXIC VESICANT - Group 2: ondansetron 4 mg tab(s) (ZOFRAN)Jump to med 4 mg, ORAL, EVERY 6 HOURS NEEDED, Starting on Fri05/18/25 at 1216, Until Fri05/18/25 at 192, Nausea/Vomiting - First Line - Enteral, Use when patient is able to take medications by mouth. Or ondansetron (PF) 4 mg injection (ZOFRAN)Jump to med 4 mg, INTRAVENOUS, EVERY 6 HOURS NEEDED, Starting on Fri05/18/25 at 1216, Until Fri05/18/25 at 192, Nausea/Vomiting - First Line - Parenteral, Give IV push over 2 minutes. Use when patient unable to take medications by mouth. Group 3: potassium chloride ER 20-40 mEq tab(s) (KLOR-CON)Jump to med 20-40 mEq, ORAL, NEEDED, Starting on Fri05/18/25 at 1216, Until Fri05/18/25 at 1926, Low Potassium, see admin instructions, DO NOT USE FOR PATIENTS WITH SCR GREATER THAN 1.4, DIALYSIS, RHABDOMYOLYSIS, DKA, AGE LESS THAN 15, OR WEIGHT LESS THAN 40 KG Use when patient is able to take oral medications K+ Level Dose Re-Check 3.4-3.9 mg/dl 20 mEq am labs Less than 3.4 mg/dl 40 mEq 2 hours Swallow whole; DO NOT crush or chew. If patient unable to swallow whole tablet; dissolve whole tablet (do not crush) in 120 mL of water prior to administration (may take up to 2 minutes to dissolve). Or potassium chloride iv piggyback 20 mEq/100 mLJump to med 20 mEq, INTRAVENOUS, at 50-100 mL/hr, Administer over 1-2 Hours, NEEDED, Starting on Fri05/18/25 at 1216, Until Fri05/18/25 at 192, Low Potassium, see admin instructions, DO NOT USE FOR PATIENTS WITH SCR GREATER THAN 1.4, DIALYSIS, RHABDOMYOLYSIS, DKA, AGE LESS THAN 15, OR WEIGHT LESS THAN 40 KG Use when patient is unable to take oral medications K+ Level Dose Re-Check 3.4-3.9 mg/dl 20 mEq am labs Less than 3.4 mg/dl 40 mEq (20 mEq q1h x 2 doses) 2 hours NONCYTOTOXIC VESICANT If ordered with infusion rate range, start with maximum infusion rate and decrease rate if infusion is not tolerated documented in this encounter Additional Health Concerns Active Problems Noted Date Diagnosed Date 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
--- OUTSIDE RECORDS SUMMARY | 2025-05-18 07:44 | XMS_ITS | Encounter Summary ---
Author Organization [facility] Address [address] [place] [address] Care Team Providers Care Printing Table Hand Name Role Phone Maury Mcnamara Primary Care Provider [phone] Source Comments In the event this information is protected by the Federal Confidentiality of Alcohol and Drug AbusePatient Records regulations: The Federal rules restrict any use of the information to criminally investigate or prosecute any alcohol or drug abuse patient.[facility] Reason for Visit * Auth/Cert (Routine) Specialty Diagnoses / Procedures Referred By Contac t Referred To Contact Diagnoses Primary osteoarthritis of left knee Primary osteoarthritis of left knee [M17.12] Procedures ARTHRP KNE CONDYLE&PLATU MEDIAL&LAT COMPARTMENTS QUIANA ROBOTIC ASSISTED TOTAL KNEE ARTHROPLASTY [facility] Operating Room [address] [place] [address] Referral ID Status Reason Start Date Expiration Date Visits Re quested Visits Authorized [id number] 1 1 Encounter Details Date Type Department Care Team (Late st Contact Info) Description 05/18/2025 7:44 AM EST Anesthesia Event [facility] Operating Room [address] [place] [address] Jah Coulter DO [place] [phone] Anesthesia Record Procedure Summary Procedure Name Responsible Anesthesiologist Anesthesia Start Time Anesthesia Stop Time UQIANA ROBOTIC ASSISTED TOTAL KNEE ARTHROPLASTY (Left: Knee) Jah Coulter, 05/18/25 0744 05/18/25 1108 Events Date Time Event Comment 05/18/2025 0744 An Start I have re-evalu ated the patient immediately prior to induction. 0744 An Start Data 0814 Spinal Placed 0822 Anesthesia Ready 0847 Incision/Procedure Start 0848 An Tourn Inflated 0919 An LMA 1012 An Tourn Deflated 1021 Start Closing 1048 Procedure End 1048 Emerge 1050 LMA Removed 1054 an stop data 1108 Handoff to RN I completed my handoff to the receiving nurse during which we: 1. Identified the patient 2. Identified the responsible provider 3. Reviewed the pertinent medical history 4. Discussed the surgical course 5. Reviewed intra-op anesthesia management and issues during anesthesia 6. Set expectations for post-procedure period 7. Allowed opportunity for questions and acknowledgement of understanding. 1108 An Stop Meds Name Total ePHEDrine 5 mg/mL 30 mg fentaNYL 0.05mg/mL 100 mcg midazolam 1mg/mL 2 mg ondansetron 4mg/2mL 4 mg PHENYLephrine injection 500 mcg propofol 10mg/mL 350 mg propofol infusion 10mg/mL 2,291,640 mcg ceFAZolin 3 g in D5W 100 mL (ANCEF) 3 g bupivacaine (PF) 0.75% 2 mL tranexamic acid (CYKLOKAPRON) in NaCl 0. 7% 1,000 mg 100 mL 1,000 mg ropivacaine (PF) 5 mg/mL (0.5 %) injecti on (NAROPIN) 15 mL LR 1,600 mL * Agents Name ETO2 ETN2O Inspired N2O Set O2% Set Fresh Gas Flow MAC Case O2 Flow Rate Inspired Sevoflurane O2 Flow Rate Air Sevoflurane Isoflurane Inspired Isoflurane * Blood No blood administrations on file. Lines, Drains, and Airways Type Details Placement Removal Wound 05/18/25; 08; Surg ical; Open Surg; Knee; Left 05/18/[address] RN PIV 05/18/25; 06; Reymundo t; Right; Hand; 20 Gauge; 05/18/25; 202605/18/25 06 by Ariane Goyal RN 05/18/252026 by Adtr, Reg In documented in this encounter Social History Tobacco Use Types Packs/Day Years [...] is lower risk 6 04/23/2024 Data from: https://www.neighborhoodatlas.medicine.[facility]/. Last address used for calculation [address] [facility] 04/23/2024 Sex and Gender Information Value Date Recorded Sex Assigned at Male 02/08/2020 3:11 PM EDT Legal Sex Male 8:08 AM EST Gender Identity Male 02/08/2020 3:11 PM EDT Sexual Orientation Not on file Travel History Travel Start Travel End [place] 05/17/2025 05/18/2025 documented as of this encounter Last Filed Vital Signs Vital Sign Reading Time Taken Comments Blood Pressure 119/61 05/18/2025 10:50 AM EST Pulse 67 05/18/2025 10:54 AM EST Temperature - - Respiratory Rate - - Oxygen Saturation 95% 05/18/2025 10:54 AM EST Inhaled Oxygen Concentration - - Weight - - Height - - Body Mass Index - - documented in this encounter Functional Status * [...] Assessment Author No 05/18/2025 4:15 PM Kat Atnoine RN * Do you have difficulty dressing [...] Kat Antoine RN documented in this encounter Procedure Notes * Jah Coulter DO - 05/18/2025 1:10 PM EST POST ANESTHESIA EVALUATION NOTE : 1965 Procedure Summary Date: 05/18/25 Room / Location: [place] [address] / OR Anesthesia Start: 743 Anesthesia Stop: 1107 Procedure: QUIANA ROBOTIC ASSISTED TOTAL KNEE ARTHROPLASTY (Left: Knee) Diagnosis: Primary osteoarthritis of left knee (Primary osteoarthritis of left knee [M17.12]) Surgeons: Dany Rossi DO Responsible Provider: Jah Coulter DO Anesthesia Type: spinal ASA Status: 2 Anesthesia Type: spinal Last Vitals Vitals Value Taken Time BP 114/63 05/18/25 12:16 Temp 36.3 ??C (97.3 ??F) 05/18/25 12:16 Pulse 59 05/18/25 12:16 Resp 18 05/18/25 12:16 SpO2 94 % 05/18/25 12:16 Post Anesthesia Patient Status Patient Evaluation: PACU. PACU/ICU Patient Condition: stable. Anticipated Disposition: inpatient floor planned admission. Neurological Status: aware and responsive. Pulmonary Status: breathing comfortably on room air Airway Control: returned to baseline unsupported. Cardiovascular Status: stable. Pain Management: clinically adequate Postoperative Hydration: acceptable. Intraoperative Events: no significant anesthesia events Post Operative Nausea/Vomiting Status: no significant post operative nausea or vomiting Recommendation: continue current plan of care and pain control. Anesthesia Observations No Documentation SIGNATURE: Jah Coulter DO PATIENT NAME: Juan Orosco DATE: May 18, 2025 TIME: 1:10 PM CSN: [id number] * Jah Coulter DO - 05/18/2025 11:38 AM ESTAssociated Order(s): Peripheral Nerve Block ANESTHESIOLOGY PROCEDURE NOTE Peripheral Nerve Block General Information Procedure Start Time/Medication Administration: 05/18/2025 11:32 AM Procedure End time: 05/18/2025 11:34 AM Patient location during procedure: OR Timeout Performed Pre-procedure: timeout performed Consent Obtained: Yes Patient identity confirmed: arm band and patient Reason for block: post-op pain management/at surgeon's request Staffing Anesthesiologist: Jah Coulter DO Performed by: anesthesiologist Preparation Sterility Preparation: hand hygiene performed prior to procedure, surgical cap used, mask used, sterile drape used during line insertion, skin prep agent completely dried prior to procedure Site Prep: Chloraprep Pre-Procedure Neuro Exam Location: LLE Sensory: intact Motor: intact Procedure Details Block Type Patient Position: supine Monitoring: Pulse OX, EKG and NIBP Lower Extremity: distal femoral (adductor canal) Laterality: left Injection Technique: single-shot Ultrasound Guided: Yes Image in Chart: Yes Local Infiltration: Yes Needle Needle Type: echogenic Needle Gauge: 22 G Needle Length: 100 mm Needle Localization: ultrasound Assessment Injection assessment: negative aspiration, no paresthesia on injection, incremental injection and local visualized surrounding nerve on ultrasound Post-Procedure Neuro Exam Expected Regional Anesthesia: Yes Medications Administered ropivacaine (PF) 5 mg/mL (0.5 %) injection (NAROPIN) - peripheral nerve block 15 mL - 05/18/2025 11:32:00 AM SIGNATURE: Jah Coulter DO PATIENT NAME: Juan Orosco DATE: May 18, 2025 TIME: 11:38 AM CSN: [id number] * Jah Coulter DO - 05/18/2025 8:26 AM ESTAssociated Order(s): Spinal Block ANESTHESIOLOGY PROCEDURE NOTE Spinal Block General Information Procedure Start Time/Medication Administration: 05/18/2025 8:10 AM Procedure End time: 05/18/2025 8:15 AM Patient location during procedure: OR Timeout Performed Pre-procedure: timeout performed Consent Obtained: Yes Patient identity confirmed: arm band, care steamfitter and patient Reason for Block: primary surgical anesthetic Staffing Anesthesiologist: Jah Coulter DO ANGIOGRAPHY NURSE: Yemi Gomez APRN.ANGIOGRAPHY NURSE Performed by: anesthesiologist Preparation Sterility Preparation: hand hygiene performed prior to procedure, sterile gloves, drapes, and procedure tray, surgical cap used, mask used, sterile drape used during line insertion, skin prep agent completely dried prior to procedure Site Prep: Duraprep Procedure Details Patient Position: sitting Ultrasound Guided: No Monitoring: Pulse Ox, EKG and NIBP Approach: Midline Location: L3-4 Injection Technique: single-shot Needle Needle Type: cutting Needle Gauge: 22 G Needle Length: 7 in CSF: CSF trace blood Did CSF Clear?: Yes Assessment Events: Easy return of CSF when placed, asymmetric loss of motor function upon testing 5 minutes after placement. Comments Asymmetric loss of motor function upon testing 5 minutes after placement. Decision made to continuesince left-sided motor loss was catching up to right- sided with plans to convert to general if setup was inadequate for the procedure. SIGNATURE: Jah Coulter DO PATIENT NAME: Juan Orosco DATE: May 18, 2025 TIME: 8:26 AM CSN: [id number] * Jah Coulter DO - 05/18/2025 7:07 AM EST Images from the original note were not included. ANESTHESIOLOGY DAY OF SURGERY NOTE : 1965 Procedure Information Date/Time: 05/18/25 0800 Procedure: QUIANA ROBOTIC ASSISTED TOTAL KNEE ARTHROPLASTY (Left: Knee) Location: OR05 / [facility] Surgeons: Dany Rossi DO Estimated body mass index is 36.4 kg/m?? as calculated from the following: Height as of 04/25/25: 193 cm (6' 4 ). Weight as of 04/25/25: 135.6 kg (299 lb). Most recent hematocrit and potassium results: Hematocrit 42.3 04/25/2025 Potassium 3.9 04/25/2025 Relevant Problems Other (+) BMI 36.0-36.9,adult I - PHYSICAL EVALUATION AIRWAY Patient intubated: No. Tracheostomy tube not present Mallampati: IV. TM distance: >3 FB. Neck ROM: full ROM without neurological symptoms. Mouth openin FB. Short neck: no. Thick neck: yes DENTAL Dental findings: missing tooth/teeth and broken tooth. II - ANESTHESIA PLAN ASA Score: 2 Anesthetic Plan: spinal The patient is not a current smoker. NPO Status: adequate Monitoring Plan Monitoring plan: standard ASA. Post Procedure Analgesic Plan Postoperative analgesic plan: multimodal analgesia. Informed Consent Anesthetic risks, benefits, alternatives, personnel and consent discussed: yes. Patient / Responsible Democrat agrees to proceed: yes Patient / Surrogate agrees to blood products: Yes Vitals Value Taken Time BP 110/64 05/18/25 06:42 Pulse 54 05/18/25 06:42 Resp 18 05/18/25 06:42 Temp 36.3 ??C (97.3 ??F) 05/18/25 06:42 SpO2 97 % 05/18/25 06:42 Facility-Administered Medications as of 05/18/2025 Medication Dose Route Frequency dextrose 10% iv bolus 12.5 g INTRAVENOUS PRN Or glucagon 0.5-1 mg injection 0.5-1 mg INTRAMUSCULAR PRN lidocaine (PF) 10 mg/mL (1 %) 1-2 mg injection (XYLOCAINE) 0.1-0.2 mL INTRADERMAL PRN lactated ringers iv infusion 5-30 mL/hr INTRAVENOUS CONTINUOUS NaCl 0.9% iv flush bag 20 mL INTRAVENOUS PRN [COMPLETED] tranexamic acid (CYKLOKAPRON) in NaCl 0.7% 1,000 mg 100 mL 1,000 mg INTRAVENOUS Pre-Op Once tranexamic acid (CYKLOKAPRON) in NaCl 0.7% 1,000 mg 100 mL 1,000 mg INTRAVENOUS ONCE ceFAZolin 3 g in D5W 100 mL (ANCEF) 3 g INTRAVENOUS Pre-Op Once Outpatient Medications as of 05/18/2025 Medication Sig metFORMIN (GLUCOPHAGE) 500 mg tablet tamsulosin (FLOMAX) 0.4 mg testosterone (ANDROGEL) 12.5 mg/ 1.25 gram (1 %) transdermal gel APPLY a total of 4 pumps TO CLEAN,DRY, INTACT SKIN OF SHOULDER AND UPPER ARMS DAILY. cabergoline (DOSTINEX) 0.5 mg tablet Take one tablet 3 days per week. sildenafil (VIAGRA) 100 mg tablet Take 1 tablet by mouth as needed. 30-60 minutes before sexual intercourse. I have interviewed and examined the patient. I have reviewed the medical record and/or the pre-anesthesia evaluation, pertinent labs, and test results. This contains updated information obtained within 48 hours of Surgery/Procedure. SIGNATURE: Jah Coulter DO PATIENT NAME: Juan Orosco DATE: May 18, 2025 TIME: 7:07 AM CSN: [id number] documented in this encounter Plan of Treatment Upcoming Encounters Date Type Department Care Team (Latest Contact Info) Description 06/10/2025 12:30 PM EST Appointment Radiology [address] [place] [address] post op xray left knee 06/10/2025 1:00 PM EST Nurse Visit Orthopaedics [address] [place] [address] [phone] Babak Arambula, JESSICA [address] [place] [address] Surgical post op 07/21/2025 11:00 AM EST [facility] Endocrinology [address] [place] [address] Dinora Bourgeois MD [address] [place], [place] [phone] Follow-up pituitary tumor and medication refill 08/04/2025 3:40 PM EST [facility] Orthopaedics [address] [place] [address] [phone] Dany Rossi DO [address] [place], [place] [phone] 3 month phone Surgical post op documented as of this encounter Goals Goal Patient Goal Type Associated Problems Recent Progress Patient-Stated? 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 [employer] No Brigid Parker Autogenerated Goal Care Plan Autogenerated Problem No Brigid Parker documented as of this encounter Procedures Procedure Name Priority Date/Time Associated Diagnosis Comments INJECTION AA&/STRD OTHER PERIPHERAL NERVE/BRANCH Routine 05/18/2025 11:32 AM EST [place] AN ULTRASOUND GUIDANCE Routine 05/18/2025 11:32 AM EST NJX DX/THER SBST INTRLMNR LMBR/SAC W/O IMG GDN Routine 05/18/2025 8:10 AM EST documented in this encounter Results * [place] AN ULTRASOUND GUIDANCE, INJECTION AA&/STRD OTHER PERIPHERAL NERVE/BRANCH (05/18/2025 11:32 AM EST) Narrative Jah Coulter DO - 05/18/2025 11:32 AM EST Jah Coulter DO 05/18/2025 11:38 AM Peripheral Nerve Block General Information Procedure Start Time/Medication Administration: 05/18/2025 11:32 AM Procedure End time: 05/18/2025 11:34 AM Patient location during procedure: OR Timeout Performed Pre-procedure: timeout performed Consent Obtained: Yes Patient identity confirmed: arm band and patient Reason for block: post-op pain management/at surgeon's request Staffing Anesthesiologist: aJh Coulter DO Performed by: anesthesiologist Preparation Sterility Preparation: hand hygiene performed prior to procedure, surgical cap used, mask used, sterile drape used during line insertion, skin prep agent completely dried prior to procedure Site Prep: Chloraprep Pre-Procedure Neuro Exam Location: LLE Sensory: intact Motor: intact Procedure Details Block Type Patient Position: supine Monitoring: Pulse OX, EKG and NIBP Lower Extremity: distal femoral (adductor canal) Laterality: left Injection Technique: single-shot Ultrasound Guided: Yes Image in Chart: Yes Local Infiltration: Yes Needle Needle Type: echogenic Needle Gauge: 22 G Needle Length: 100 mm Needle Localization: ultrasound Assessment Injection assessment: negative aspiration, no paresthesia on injection, incremental injection and local visualized surrounding nerve on ultrasound Post-Procedure Neuro Exam Expected Regional Anesthesia: Yes Medications Administered ropivacaine (PF) 5 mg/mL (0.5 %) injection (NAROPIN) - peripheral nerve block 15 mL - 05/18/2025 11:32:00 AM Jah Coulter DO ANESTHESIA ORDERABLES Final R esult * NJX DX/THER SBST INTRLMNR LMBR/SAC W/O IMG GDN (05/18/2025 8:10 AM EST) Narrative Jah Coulter DO - 05/18/2025 8:10 AM EST Jah Coulter DO 05/18/2025 8:30 AM Spinal Block General Information Procedure Start Time/Medication Administration: 05/18/2025 8:10 AM Procedure End time: 05/18/2025 8:15 AM Patient location during procedure: OR Timeout Performed Pre-procedure: timeout performed Consent Obtained: Yes Patient identity confirmed: arm band, care steamfitter and patient Reason for Block: primary surgical anesthetic Staffing Anesthesiologist: Jah Coulter DO ANGIOGRAPHY NURSE: Yemi Gomez APRN.ANGIOGRAPHY NURSE Performed by: anesthesiologist Preparation Sterility Preparation: hand hygiene performed prior to procedure, sterile gloves, drapes, and procedure tray, surgical cap used, mask used, sterile drape used during line insertion, skin prep agent completely dried prior to procedure Site Prep: Duraprep Procedure Details Patient Position: sitting Ultrasound Guided: No Monitoring: Pulse Ox, EKG and NIBP Approach: Midline Location: L3-4 Injection Technique: single-shot Needle Needle Type: cutting Needle Gauge: 22 G Needle Length: 7 in CSF: CSF trace blood Did CSF Clear?: Yes Assessment Events: Easy return of CSF when placed, asymmetric loss of motor function upon testing 5 minutes after placement. Comments Asymmetric loss of motor function upon testing 5 minutes after placement. Decision made to continue since left-sided motor loss was catching up to right-sided with plans to convert to general if setup was inadequate for the procedure. Jah Coulter DO ANESTHESIA ORDERABLES Final R esult documented in this encounter Visit Diagnoses Not on filedocumented in this encounter Administered Medications Inactive Administered Medications - up to 3 most recent administrations Medication Order MAR Action Action Date Dose Rate Site bupivacaine(PF) 0.75 % (7.5 mg/mL) injection (MARCAINE PF) INTRATHECAL, NEEDED, Starting on Fri05/18/25 at 0814, Until Fri05/18/25 at 1108, Anesthesia Intraprocedure Given 05/18/2025 8:14 AM EST 2 mL ceFAZolin 3 g in D5W 100 mL (ANCEF) 3 g, INTRAVENOUS, at 200 mL/hr, Administer over 30 Minutes, PRE-OP ONCE, 1 dose, On Fri05/18/25 at 0700, Orthopedic Cases - MRSA Negative or Low Risk PRE-OP ANTIBIOTIC ADMINISTER ONLY IN SURGICAL AREA DO NOT ADMINSTER ON THE FLOOR, Antimicrobial indication: Prophylaxis, Preprocedure Given 05/18/2025 8:24 AM EST 3 g ePHEDrine sulfate injection (EMERPHED) INTRAVENOUS, NEEDED, Starting on Fri05/18/25 at 0935, Until Fri05/18/25 at 1108, Anesthesia Intraprocedure Given 05/18/2025 11:08 AM EST 10 mg Given 05/18/2025 9:49 AM EST 10 mg Given 05/18/2025 9:35 AM EST 10 mg fentaNYL 50 mcg/mL injection (SUBLIMAZE) INTRAVENOUS, NEEDED, Starting on Fri05/18/25 at 0953, Until Fri05/18/25 at 1108, Anesthesia Intraprocedure Given 05/18/2025 10:29 AM EST 50 mcg Given 05/18/2025 10:00 AM EST 25 mcg Given 05/18/2025 9:53 AM EST 25 mcg lactated ringers iv infusion INTRAVENOUS, X (ONE-STEP ONLY) CONTINUOUS PRN, Starting on Fri05/18/25 at 0744, Until Fri05/18/25 at 1108, Anesthesia Intraprocedure New Bag/Syringe/Bottle 05/18/2025 9:50 AM EST New Bag/Syringe/Bottle 05/18/2025 7:44 AM EST midazolam (PF) injection (VERSED) INTRAVENOUS, NEEDED, Starting on Fri05/18/25 at 0754, Until Fri05/18/25 at 1108, Anesthesia Intraprocedure Given 05/18/2025 7:54 AM EST 2 mg ondansetron (PF) injection (ZOFRAN) INTRAVENOUS, NEEDED, Starting on Fri05/18/25 at 0759, Until Fri05/18/25 at 1108, Anesthesia Intraprocedure Given 05/18/2025 7:59 AM EST 4 mg PHENYLephrine 10 mg/mL injection (JESSICA-SYNEPHRINE) INTRAVENOUS, NEEDED, Starting on Fri05/18/25 at 0901, Until Fri05/18/25 at 1108, Anesthesia Intraprocedure Given 05/18/2025 10:13 AM EST 100 mcg Given 05/18/2025 9:21 AM EST 100 mcg Given 05/18/2025 9:17 AM EST 200 mcg propofol infusion (DIPRIVAN) INTRAVENOUS, X (ONE-STEP ONLY) CONTINUOUS PRN, Starting on Fri05/18/25 at 0847, Until Fri05/18/25 at 1108, Anesthesia Intraprocedure Rate/Dose Change 05/18/2025 9:11 AM EST 150 mcg/kg/min 122.04 mL/hr Rate/Dose Change 05/18/2025 9:05 AM EST 75 mcg/kg/min 61.0 2 mL/hr Rate/Dose Change 05/18/2025 8:56 AM EST 100 mcg/kg/min 81. 36 mL/hr propofol injection (DIPRIVAN) INTRAVENOUS, NEEDED, Starting on Fri05/18/25 at 0847, Until Fri05/18/25 at 1108, Anesthesia Intraprocedure Given 05/18/2025 10:25 AM EST 50 mg Given 05/18/2025 10:15 AM EST 50 mg Given 05/18/2025 9:17 AM EST 100 mg ROPivacaine (PF) 5 mg/mL (0.5 %) injection (NAROPIN) peripheral nerve block, ONCE, Starting on Fri05/18/25 at 1132, Until Fri05/18/25 at 1138, Anesthesia Intraprocedure Given 05/18/2025 11:32 AM EST 15 mL tranexamic acid (CYKLOKAPRON) in NaCl 0.7% 1,000 mg 100 mL 1,000 mg, INTRAVENOUS, at 600 mL/hr, Administer over 10 Minutes, ONCE, 1 dose, On Fri05/18/25 at 0700, To be given in OR at end of case, Preprocedure New Bag/Syringe/Bottle 05/18/2025 10:11 AM EST 1,000 mg documented in this encounter Additional Health Concerns Active Problems Noted Date Diagnosed Date 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
--- OUTSIDE RECORDS SUMMARY | 2025-05-18 08:00 | XMS_ITS | Encounter Summary ---
Author Organization [facility] Address [address] [place] [address] Care Team Providers Care Photographic Engineer Name Role Phone Maury Mcnamara Primary Care Provider [phone] Source Comments In the event this information is protected by the Federal Confidentiality of Alcohol and Drug AbusePatient Records regulations: The Federal rules restrict any use of the information to criminally investigate or prosecute any alcohol or drug abuse patient.[facility] Reason for Visit * Auth/Cert (Routine) Specialty Diagnoses / Procedures Referred By Contac t Referred To Contact Diagnoses Primary osteoarthritis of left knee Primary osteoarthritis of left knee [M17.12] Procedures ARTHRP KNE CONDYLE&PLATU MEDIAL&LAT COMPARTMENTS QUIANA ROBOTIC ASSISTED TOTAL KNEE ARTHROPLASTY [facility] Operating Room [address] [place] [address] Referral ID Status Reason Start Date Expiration Date Visits Re quested Visits Authorized [id number] 1 1 Encounter Details Date Type Department Care Team (Late st Contact Info) Description 05/18/2025 8:00 AM EST - 05/18/2025 10:55 AM EST Surgery [facility] Operating Room [address] [place] [address] Dany Rossi, DO [address] [place] [address] QUIANA ROBOTIC ASSISTED TOTAL KNEE ARTHROPLASTY Surgery Details Date/Time Status Location OR Service Patient Class Case Cl ass Case Type Trauma Case? 05/18/2025 8:00 AM Posted [facility] OR OR 05 Orthopedics Ambulatory Surgery Elective Panel 1 Procedure LRB Anes Op Region Wound Class Comments QUIANA ROBOTIC ASSISTED TOTAL KNEE ARTHROPLASTY Left Spinal Knee Clean Surgeon Surgeon Role Service Panel Dany Rossi, DO Primary Orthopedics 1 Buck Baca DO Resident - Assisting 1 documented in this encounter Social History Tobacco [...] is lower risk 6 04/23/2024 Data from: https://www.neighborhoodatlas.medicine.[facility].edu/. Last address used for calculation [address] [facility] 04/23/2024 Sex and Gender Information Value Date Recorded Sex Assigned at Male 02/08/2020 3:11 PM EDT Legal Sex Male 8:08 AM EST Gender Identity Male 02/08/2020 3:11 PM EDT Sexual Orientation Not on file Travel History Travel Start Travel End [place] 05/17/2025 05/18/2025 documented as of this encounter Last Filed Vital Signs Vital Sign Reading Time Taken Comments Blood Pressure 110/64 05/18/2025 6:42 AM EST Pulse 54 05/18/2025 6:42 AM EST Temperature 36.3 C (97.3 F) 05/18/2025 6:42 AM EST Respiratory Rate 18 05/18/2025 6:42 AM EST Oxygen Saturation 97% 05/18/2025 6:42 AM EST Inhaled Oxygen Concentration - - [...] Baumann, - 05/18/2025 10:32 AM EST [facility] [place] [phone] or [phone] [facility] The following is a brief overview of your hospitalization. Some of the information contained on this summary may be confidential. This information should be kept in your records and should be shared with your regular doctor. Where I Will be Going after Discharge: Home My Doctors and Medical Team: My Main Hospital Doctor: Dany Rossi, DO My Primary Care Physician Maury Mcnamara [...] These instructions explain what you or your career services manager need to do to continue your care at home or at another healthcare facility Please go over these instructions with your nurse and career services manager. If you are not sure about something, [...] document) Please call Dr. Rossi's office at [phone] or call the appointment line at [phone] during normal business hours for information regarding your follow up appointment. Alternatively, you may also call the [facility] nailing machine operator at or during normal business hours to schedule these appointments. If you have a question that is urgent and it is after hours please call [phone] and ask the nailing machine operator to page the on-call orthopedic resident. [...] Time Provider Department Center 06/10/2025 12:30 PM [facility] 06/10/2025 1:00 PM Babak Arambula RN ORTHTW [facility] 07/21/2025 11:00 AM Dinora Bourgeois MD [facility] 08/04/2025 3:40 PM [facility] Additional instructions for when I leave the hospital 1. Follow up as above 2. Pain control, wound care, diet, and activity as above 3. Please call with any questions or concerns Thank You Electronically Signed: Dany Rossi D.O. Joint Replacement and Adult Reconstructive Surgery [facility] [place] Office Number: [phone] documented in this encounter Medications at Time [...] 05/18/2025 SERVICE TIME: 1446 to 1526 ROOM: [id number] PT 6 Clicks Score: 23 Total Joint [...] Reduced mobility-other TREATMENT INTERVENTIONS Evaluation, Therapeutic Exercise (71027), Gait Training (82402) Timed Code Treatment (minutes): 25 Skilled Treatment [...] 05/18/2025 SERVICE TIME: 1415 to 1445 ROOM: [id number] 6 Clicks Score: 22 Total Joint Replacement [...] (ADL), Reduced mobility-other TREATMENT INTERVENTIONS Evaluation, Self Senior Care Management (31138) Timed Code Treatment (minutes): 15 Skilled Treatment [...] OT/PT Advance Directives Current Advance Directive: None Bank President Attempted to Assist with AD Completion: Yes [...] Planning Patient Goal(s): Less pain, Better mobility Mckinney of Choice Explained: Mckinney of Choice Given: Yes Level of Care Discussed: Home Care Are you interested in bedside delivery of your medications? Yes Discharge Planning Participant(s): Patient Patient/Family Comments: Caregiver Assessment: Caregiver is ready, willing and able to meet the patient's needs as recommended by the inter-professional team: Yes Name of Caregiver: Mother (goign to her house at [facility] spouse works FT) Transport at Discharge: [...] going to his mom's house at discharge: [address] [place] [address] [place] [address]. Patient is independent in ADLs and drives. Patient's friend Niko will provide transport at discharge. The patient states he feels safe at home and denies safety, financial, and social concerns at this time.The patient denied any additional needs at this time. DME: wheeled walker and cane. Anticipated Needs: Home PT/OT Referral sent to [facility] agencies for home PT/OT and accepted by [facility]. CM Department will continue to follow. It is [...] 57 non Hodgkin's Lymphoma Heart Maternal Grandfather [place] at age 56 and Anesthesia Problems No [...] (VIBRAMYCIN) 100 mg ORAL q 12 H 6a/6p ergocalciferol (vitamin D2) 50,000 Units cap(s) (DRISDOL) [...] BRIEF OPERATIVE / PROCEDURE NOTE LOG ID: [id number] Surgery/Procedure Date: 05/18/2025 Incision/Procedure Start Time: 8:47 AM Incision Close/Procedure End Time: 10:48 AM Surgeon(s)/Proceduralist(s) and Supervisor Instrument Repair(s): Surgeons and Role: * Dany Rossi DO - Primary * Buck Baca DO - Resident - Assisting Nurse Practitioner: Meli Rashid APRN.CNP Procedure(s): Procedure(s) (LRB): QUIANA ROBOTIC ASSISTED TOTAL KNEE ARTHROPLASTY (Left) Anesthesia: Spinal Findings: See full dictation for details Estimated Blood Loss: 100 mls Specimens: .* No specimens in log * Complications: None Implant(s): Implant Name Type Inv. Item Serial No. Outsole Compressor Lot No. LRB No. Used Action SCREW PERSONA 2.5MM FEMALE HEXAGON 25MM HEADFRAME KNEE - [id number] Screw SCREW PERSONA 2.5MM FEMALE HEXAGON 25MM HEADFRAME KNEE [employer] [id number] Left 1 Non-Implant OSSEOTI CEMENTLESS PATELLA SIZE 35MM - [id number] Joint OSSEOTI CEMENTLESS PATELLA SIZE 35MM [employer] [id number] Left 1 Implanted COMPONENT TIBIAL SIZE H 0DEG LEFT CEMENTLESS KEEL OSSEOTI PERSONA - [id number] Joint - Knee COMPONENT TIBIAL SIZE H 0DEG LEFT CEMENTLESS KEEL OSSEOTI PERSONA [employer] [id number] Left 1 Implanted INSERT PERSONA 12 GH VIVACIT-E 10MM ARTICULAR STERILE LATEX FREE KNEE LEFT - [id number] Joint - Knee INSERT PERSONA 12 GH VIVACIT-E 10MM ARTICULAR STERILE LATEX FREE KNEE LEFT [employer] [id number] Left 1 Implanted PSN FEM CR PPS COCR STD SZ12 L - [id number] Joint - Knee PSN FEM CR PPS COCR STD SZ12 L [employer] [id number] Left 1 Implanted Pre-Op/Pre-Procedure Diagnosis: Primary osteoarthritis [...] insulin 2 Discharge planning Follow up: Dany Sanchez, in 2-3 weeks in clinic Juan Orosco [...] hospital. Angelica Baumann DO Orthopaedic Surgery Pager #:[phone] * Brief Op Note - Buck Baca DO - 05/18/2025 11:05 AM EST Images from the original note were not included. ORTHOPAEDIC SURGERY BRIEF OPERATIVE NOTE LOG ID: [id number] Surgery/Procedure Date: 05/18/2025 Incision/Procedure Start Time: 8:47 AM Incision Close/Procedure End Time: 10:48 AM Surgeon(s)/Proceduralist(s) and Supervisor Instrument Repair(s): Surgeons and Role: * Dany Rossi DO [...] Cultures: N/A - Consults: PT/OT, care management, [facility], appreciate recs - Dispo: OK for same [...] DATE: 05/18/2025 TIME: 11:05 AM PAGER/CONTACT #: [phone] * Operative Report - Dany Rossi DO - 05/18/2025 7:43 AM EST OPERATIVE NOTE PATIENT NAME: Juan Orosco LOG ID: [id number] Surgery Date: 05/18/2025 Surgeon(s) and Supervisor Instrument Repair(s): Surgeons and Role: * Dany Rossi DO [...] Implant Name Type Inv. Item Serial No. Outsole Compressor Lot No. LRB No. Used Action SCREW PERSONA 2.5MM FEMALE HEXAGON 25MM HEADFRAME KNEE - [id number] Screw SCREW PERSONA 2.5MM FEMALE HEXAGON 25MM HEADFRAME KNEE [employer] [id number] Left 1 Non-Implant OSSEOTI CEMENTLESS PATELLA SIZE 35MM - [id number] Joint OSSEOTI CEMENTLESS PATELLA SIZE 35MM [employer] [id number] Left 1 Implanted COMPONENT TIBIAL SIZE H 0DEG LEFT CEMENTLESS KEEL OSSEOTI PERSONA - [id number] Joint - Knee COMPONENT TIBIAL SIZE H 0DEG LEFT CEMENTLESS KEEL OSSEOTI PERSONA [employer] [id number] Left 1 Implanted INSERT PERSONA 12 GH VIVACIT-E 10MM ARTICULAR STERILE LATEX FREE KNEE LEFT - [id number] Joint - Knee INSERT PERSONA 12 GH VIVACIT-E 10MM ARTICULAR STERILE LATEX FREE KNEE LEFT [employer] [id number] Left 1 Implanted PSN FEM CR PPS COCR STD SZ12 L - [id number] Joint - Knee PSN FEM CR PPS COCR STD SZ12 L [employer] [id number] Left 1 Implanted Problem List: ACTIVE PROBLEM [...] The marked outpatient medications were Filled at: [facility] and delivered to the patient's bedside to [...] 2025 4:42 PM Neville Hooks CPhT Medication Engine Cleaner [id number] * Plan of Care - Neville Hooks CPhT - 05/18/2025 12:34 PM EST Images from the original note were not included. Insurance investigation completed Patient has active prescription insurance: Yes - Patient's insurance is in- network with F Insurance loaded into [place]: Yes Test claim was completed to verify insurance is active: Successful Is patient eligible for [facility]? No Any questions, please reach out to your medication patient access. Neville Hooks CPhT Medication Engine Cleaner [id number] documented in this encounter Plan of Treatment Upcoming Encounters Date Type Department Care Team (Latest Contact Info) Description 06/10/2025 12:30 PM EST Appointment Radiology [address] [place] [address] post op xray left knee 06/10/2025 1:00 PM EST Nurse Visit Orthopaedics [address] [place], [place] [id number] [place] [address] [place] [address] Surgical post op 07/21/2025 11:00 AM EST [facility] Endocrinology [address] [place] [address] Dinora Bourgeois MD [address] [place] [address] Follow-up pituitary tumor and medication refill 08/04/2025 3:40 PM EST [facility] Orthopaedics [address] [place], [place] [id number] Dany Rossi DO [address] [place] [address] 3 month phone Surgical post op documented as of this encounter Goals Goal Patient Goal Type Associated Problems Recent Progress Patient-Stated? Author Total Knee Replacement Circuit Board Inspector Care Plan Total Knee Replacement Circuit Board Inspector No Brigid Parker Autogenerated Goal Care Plan [...] GLUCOSE, BLOOD (POC) (05/18/2025 12:22 PM EST) Glucose, Point of Care 99 74 - 99 mg/dL [facility] Comment: Location:[address], [facility] The Accu-Chek Inform II glucose meter [...] above situations. 05/18/2025 12:2 2 PM EST us Dany Rossi DO POC TESTING Final Resul t [facility] POINT OF CARE [address] * (ABNORMAL) GLUCOSE, BLOOD (POC) (05/18/2025 7:03 AM EST) Glucose, Point of Care 116(A) 74 - 99 mg/dL [facility] Comment: Location:[facility], [address] [place] [address], [address] The Accu-Chek Inform II glucose meter has [...] the above situations. 05/18/2025 7:03 AM EST us Dany Rossi DO POC TESTING Final Resul t [facility] POINT OF CARE [address] documented in this encounter Visit Diagnoses Diagnosis Post-op pain Other acute postoperative pain Primary osteoarthritis of left knee Primary localized osteoarthrosis, lower leg documented in this encounter Admitting Diagnoses Diagnosis [...] Given 05/18/2025 12:46 PM EST 1,000 mg bupivacaine (PF) 0.25 % (2.5 mg/mL) 15 mL, BUPivacaine liposome (PF) 20 mL in NaCl (PF) 0.9% 15 mL X (OR/PROCEDURE) PRN, Starting on Fri05/18/25 at 0850, Until Fri05/18/25 at 1101, Intraprocedure Given 05/18/2025 10:33 AM EST 25 mL Knee, Left Given 05/18/2025 9:50 AM EST 25 mL Kn ee, Left ceFAZolin iv piggyback 2 g in D5W [...] indication: Prophylaxis, Pharmacist may modify dose per [facility] dose optimization consult agreement: Yes New Bag/Syringe/Bot tle 05/18/2025 4:03 PM EST 2 g 200 [...] doses, Starting on Fri05/18/25 at 1054, Until 05/18/25 at 1216, FIRST LINE THERAPY for pain [...] 0700, Until Fri05/18/25 at 1215, Preprocedure New Bag/Syringe/Bot tle 05/18/2025 6:54 AM EST 30 mL/hr 30 mL/hr lactated ringers iv infusion 5-30 mL/hr, INTRAVENOUS, CONTINUOUS, Starting on Fri05/18/25 at 1100, Until Fri05/18/25 at 1216, Recovery or Phase I (only) New Bag/Syringe/Bot tle 05/18/2025 11:41 AM EST 30 mL/hr 30 mL/hr lactated ringers iv infusion 75 mL/hr, INTRAVENOUS, CONTINUOUS, Starting on Fri05/18/25 at 1230, Until Fri05/18/25 at 1927, Stop with adequate PO intake or after 24 hours New Bag/Syringe/Bot tle 05/18/2025 12:30 PM EST 75 mL/hr 75 mL/hr methocarbamol 1 g injection (ROBAXIN) 1 g, INTRAVENOUS, ONCE, 1 dose, On Fri05/18/25 at 1130 Given 05/18/2025 11:10 AM EST 1 g NaCl 0.9% irrigation bag X (OR/PROCEDURE) PRN, Starting on Fri05/18/25 at 0852, Until Fri05/18/25 at 1101, Intraprocedure Given 05/18/2025 8:52 AM EST 3,000 mL Knee, Left NaCl 0.9% irrigation solution X (OR/PROCEDURE) PRN, Starting on Fri05/18/25 at 0851, Until Fri05/18/25 at 1101, Intraprocedure Given 05/18/2025 8:51 AM EST 1,000 mL Knee, Left ondansetron (PF) 4 mg injection (ZOFRAN) 4 mg, INTRAVENOUS, EVERY 6 HOURS NEEDED, Starting on Fri05/18/25 at 1216, Until Fri05/18/25 at 1927, Nausea/Vomiting - First Line - Parenteral, Give [...] Fri05/18/25 at 1216, Until Fri05/18/25 at 1927, Low Potassium, see admin instructions, DO NOT [...] not tolerated povidone-iodine 10 % solution (BETADINE) X (OR/PROCEDURE) PRN, Starting on Fri05/18/25 at 0852, Until Fri05/18/25 at 1101, Intraprocedure Given 05/18/2025 10:18 AM EST 122 mL Knee, Left tranexamic acid (CYKLOKAPRON) in NaCl 0.7% 1,000 mg 100 mL 1,000 mg, INTRAVENOUS, at 600 mL/hr, Administer over 10 Minutes, PRE-OP ONCE, 1 dose, On Fri05/18/25 at 0700, Maximum infusion rate 100 mg/min., Preprocedure New Bag/Syringe/Dudley le 05/18/2025 6:57 AM EST 1,000 mg 600 [...] Goyal RN)0824 (Given - Provider: Yemi Gomez APRN.ATMOSPHERIC PHYSICS PROFESSOR) ceFAZolin iv piggyback 2 g in D5W [...] indication: Prophylaxis, Pharmacist may modify dose per [facility] dose optimization consult agreement: Yes [phone] (New Bag/Syring e/Bottle - Provider: Nikko Gutierrez RN)1639 (Infusion Complete - Provider: Nikko Gutierrez RN) [...] and joint, Pharmacist may modify dose per [facility] dose optimization consult agreement: Yes ergocalciferol (vitamin [...] Goyal RN)1011 (New Bag/Syringe/Bottle - Provider: Yemi Gomez APRN.CRNA) Continuous Medication Order 05/16/2025 05/17/2025 05/18/2025 lactated [...] Fri05/18/25 at 1216, Until Fri05/18/25 at 192, GI upset, SHAKE WELL bupivacaine (PF) 0.25 [...] 0851 (Given - Provid er: Dany Rossi, DO - Comment: On sterile field, used PRN thoughout proccedure) ondansetron (PF) 4 mg injection (ZOFRAN)(Linked Group 2) 4 mg, INTRAVENOUS, EVERY 6 HOURS NEEDED, Starting on Fri05/18/25 at 1216, Until Fri05/18/25 at 1927, Nausea/Vomiting - First Line - Parenteral, Give IV push over 2 minutes. Use when patient unable to take medications by mouth. ondansetron 4 mg tab(s) (ZOFRAN)(Linked Group 2) 4 mg, ORAL, EVERY 6 HOURS NEEDED, Starting on Fri05/18/25 at 1216, Until Fri05/18/25 at 1927, Nausea/Vomiting - First Line - Enteral, Use when patient is able to take medications by mouth. oxyCODONE IR 5-10 mg tab(s) (ROXICODONE) 5-10 mg, ORAL, EVERY 3 HOURS NEEDED, Starting on Fri05/18/25 at 1216, Until Fri05/18/25 at 1927, Moderate Pain (4-6) - Enteral, Severe Pain (>/=7) - Enteral, 5mg moderate, 10mg severe 1246 (Given - Provid er: Nikko Gutierrez RN)1600 (Given - Provider: Nikko Gutierrez RN) potassium chloride ER 20-40 mEq tab(s) (KLOR-CON)(Linked Group 3) 20-40 mEq, ORAL, NEEDED, Starting on Fri05/18/25 at 1216, Until Fri05/18/25 at 1927, Low Potassium, see admin instructions, DO NOT [...] Fri05/18/25 at 1216, Until Fri05/18/25 at 1927, Low Potassium, see admin instructions, DO NOT [...] Fri05/18/25 at 1216, Until Fri05/18/25 at 1927, Low Potassium, see admin instructions, DO NOT [...] Noted Date Diagnosed Date Total Knee Replacement Circuit Board Inspector 03/24/2025 Autogenerated Problem 03/24/2025 documented as of this encounter Care Teams Photographic Engineer Relationship Specialty Start Date End Date Maury Mcnamara [address] [place] [phone] PCP - General Internal Medicine 04/23/25 documented as of this encounter
--- NOTE | 2025-05-20 04:12 | XR_ITS ---
PROCEDURE INFORMATION: Exam: XR Left Knee Exam date and time: 05/20/2025 4:15 AM Age: 59 years old Clinical indication: Pain; Knee; Left; Additional info: Fall, recent left knee replacement TECHNIQUE: Imaging protocol: Radiologic exam of the left knee. Views: 3 views. COMPARISON: CR XR FEMUR LT 2V 05/20/2025 4:15 AM FINDINGS: Bones/joints: Prominent suprapatellar effusion. Prior 3 part knee arthroplasty which appears to be in good position. Soft tissues: Focal lucency is seen within the lower thigh musculature, question air.. IMPRESSION: 1. Prominent suprapatellar effusion. Prior 3 part knee arthroplasty which appears to be in good position. 2. Questionable air in the lower thigh musculature, correlate with recent intervention.
--- NOTE | 2025-05-20 04:12 | XR_ITS ---
PROCEDURE INFORMATION: Exam: XR Left Femur Exam date and time: 05/20/2025 4:15 AM Age: 59 years old Clinical indication: Pain; Thigh; Left; Additional info: Fall, recent left knee replacement TECHNIQUE: Imaging protocol: Radiologic exam of the left femur. Views: 2 views. COMPARISON: CR XR KNEE LT 3V 05/20/2025 4:15 AM FINDINGS: Bones/joints: Prominent knee effusion. Three part knee replacement. No fracture or dislocation noted. Soft tissues: Lucency in the musculature may represent postoperative air correlate with recent surgery. IMPRESSION: Prominent knee effusion. Three part knee replacement. Lucency in the musculature may represent postoperative air correlate with recent surgery. No fracture or dislocation noted.
--- NOTE | 2025-05-20 04:13 | HMH.EDGENADL ---
Discharge Plan Disposition Patient Disposition: Home, Self-Care Prescriptions Prescriptions: No Action cabergoline 0.5 tablet 1 tab PO QODHS testosterone 5 GM gel in packet 5 gm TD DIRECTED azithromycin 250 MG tablet 250 mg PO UD DOSE PK Qty: 6 0RF Rx Instructions: Take two (2) tablets today, then one (1) tablet days #2 thru #5 benzonatate 100 MG capsule 100 mg PO TID PRN (Reason: Cough) Qty: 30 0RF fluticasone propionate 120 SPR/BOT bottle 1 spr NS DAILY Qty: 1 0RF Rx Instructions: each nostril daily Referrals Follow up/Referrals: Provider,Referral, MD [Primary Care Provider, Medical] - See instructions Activity Restrictions/Add. Instructions Additional Instructions/Restrictions: Please follow-up with your primary care provider. Please return to the emergency department if you develop any new or worsening symptoms or become concerned for your health. Clinical Impressions Clinical Impression: Knee pain Qualifiers: Chronicity: acute Laterality: left Qualified Code(s): M25.562 - Pain in left knee Print Language Print Language: Romanian Discharge ED Provider: Jake Bishop General Adult HPI General Chief complaint: PAIN Stated complaint: Fall Time Seen by Provider: 05/20/25 04:13 History of Present Illness HPI narrative: 59-year-old male with history of left knee replacement 2 days ago presents after a fall. He reports that he slipped and fell in the bathroom shortly prior to arrival. He reports that the left knee hurts but it is not significantly worse than baseline. He does not report any specific twisting or dislocation. He was able to walk on it with EMS prior to arrival. Related Data Home Medications ?Medication ?Instructions ?Recorded ?Confirmed cabergoline 0.5 mg tablet 1 tab PO QODHS PITUITARY 08/22/19 08/22/19 testosterone 1 % (50 mg/5 gram) 5 gm TD DIRECTED HORMONE 08/22/19 08/22/19 transdermal gel packet Previous Rx's ?Medication ?Instructions ?Recorded azithromycin 250 mg tablet 250 mg PO UD DOSE PK #6 tabs 08/22/19 benzonatate 100 mg capsule 100 mg PO TID PRN Cough #30 caps 08/22/19 fluticasone propionate 50 1 spr NS DAILY ##1 08/22/19 mcg/actuation nasal spray,suspension Allergies Allergy/AdvReac Type Severity Reaction Status Date / Time No Known Allergies Allergy Verified 08/22/19 15:12 [facility] Disclaimer: The information contained in this section may have been updated after the patient was seen, as this information can be updated by other users. Social History Smoking Status: Current some day smoker tobacco type: cigarettes packs per day: 1 alcohol intake: never current occupational status: other Travel in the last 8 weeks?: None ROS Obtained: Yes All systems reviewed & no additional complaints except as documented Physical Exam General General appearance: alert and in no apparent distress Head Head exam: atraumatic and normocephalic Eye Eye exam: Present normal appearance, PERRL and EOMI ENT ENT exam: Present normal oropharynx and normal external ear exam Neck Neck exam: Present normal inspection and full ROM Chest Chest inspection: Present normal inspection and symmetric chest wall rise; Absent tenderness Respiratory Respiratory exam: Present normal lung sounds bilaterally; Absent respiratory distress Cardiovascular Cardiovascular exam: Present regular rate and normal rhythm Abdominal Exam Abdominal exam: Present soft; Absent distention, tenderness or guarding Extremities Exam Extremities exam: Present joint swelling (Generalized left knee swelling, no blood noted on the patient's bandage, no laceration or bruising) and other (Intact distal sensation and pulse exam); Absent edema Back Exam Back exam: Present normal inspection; Absent tenderness Neurological Exam Neurological exam: Present alert and oriented X3; Absent motor sensory deficit Psychiatric Psychiatric exam: Present normal affect and normal mood Skin Skin exam: Present warm, dry and normal color Lymphatic Lymphatic Findings: no adenopathy Medical Decision Making Medical Records Medical records reviewed: Yes I reviewed the patient's medical records. Screening: Per USPSTF and CDC recommendations, given the prevalence of disease in our region, it is our hospital?s policy to screen for HIV and viral Hepatitis for all patients aged 18 and over and those with ongoing risk factors. Maximus Inquiry Pt receiving controlled substance: No Maximus was queried for this patient: No Vital Signs: 05/20/25 04:14 05/20/25 04:21 05/20/25 05:19 Temperature 98.6 F 98.6 F Temperature Source Oral Pulse Rate 76 75 Pulse Rate [Right] 76 Respiratory Rate 16 16 18 Blood Pressure 108/75 L 115/82 Blood Pressure [Right Arm] 108/75 L Blood Pressure Mean [Right Arm] 86 02 Sat by Pulse Oximetry 97 97 Oxygen Delivery Method Room Air Room Air Lab Data Lab results reviewed: Yes I reviewed the patient's lab results. Lab Results 05/20/25 04:14: HCV Ab GARFIELD w/Rflx PCR Qn Negative, HIV Ag/Ab Combo Qual Negative Orders (Tests/Meds): ED MEDICATIONS Discontinued Medications Generic Name Dose Route Start Last Admin Trade Name Leyda PRN Reason Stop Dose Admin Acetaminophen 1,000 mg 05/20/25 04:12 05/20/25 04:29 Acetaminophen 500mg Tab PO 05/20/25 04:13 Not Given ONCE ONE Oxycodone HCl 5 mg 05/20/25 04:12 05/20/25 04:29 Oxycodone 5mg Immediate Release Tablet PO 05/20/25 04:13 Not Given ONCE ONE ORDERS Category Date Time Status Femur XR left 2 views [XR femur LT 2V] Stat Exams 05/20/25 04:12 Completed Knee XR left 3 views [XR knee LT 3V] Stat Exams 05/20/25 04:12 Completed HIV Combo Stat Lab 05/20/25 04:14 Completed Hepatitis C Ab Qual. W/ RFX Stat Lab 05/20/25 04:14 Completed Medical Decision Narrative: 59-year-old male with total knee replacement 2 days ago at [facility] presents for left knee pain after a mechanical fall from standing in the bathroom.. History was obtained via interactive discussion with patient, EMS, chart review. On arrival, patient is [afebrile, hemodynamically stable, satting appropriately, alert, oriented x4, GCS 15], moving all extremities spontaneously. Full physical exam performed and significant for left knee swelling without obvious signs of new trauma Differential includes but is not limited to fracture, dislocation, hardware malfunction, neurovascular/ligamentous injury. Patient was given Tylenol and oxycodone for pain control. Radiographs of the left knee and thigh were obtained and independently interpreted by me, no evidence of acute fracture or hardware malfunction. There is an effusion and some air but this is consistent with his recent surgery. These findings were communicated to patient. He was discharged in stable condition. Return precautions given. Procedures Risk/Benefits of Procedure(s) Were Explained: Yes Critical Care Critical Care Time Critical Care Time: No
[2025-05-20 04:14] VITALS: BP 108/75; PULSE 76; RESP 16; TEMP 37; O2SAT 97; BMI 35.9
--- OUTSIDE RECORDS SUMMARY | 2025-05-20 04:19 | XMS_ITS | Encounter Summary ---
Author Organization [facility] Address [address] [place] [address] Care Team Providers Care Pharmacist Per Diem Name Role Phone TayRickey milligan Deidra Primary Care Provider [phone] Epishantelle Maury Gay Primary Care Provider [phone] Source Comments In the event this information is protected by the Federal Confidentiality of Alcohol and Drug AbusePatient Records regulations: The Federal rules restrict any use of the information to criminally investigate or prosecute any alcohol or drug abuse patient.[facility] Encounter Details Date Type Department Care Team (Late st Contact Info) Description 03/24/2025 Patient Msg Orthopaedics [address] [place] [address] Provider, Ccf Welcome to the Total Knee Replacement Cuff Cutter Social History Tobacco Use Types Packs/Day Years [...] is lower risk 6 04/23/2024 Data from: https://www.neighborhoodatlas.[facility]/. Last address used for calculation [address] 04/23/2024 Sex and Gender Information Value Date Recorded Sex Assigned at Male 02/08/2020 3:11 PM EDT Legal Sex Male 8:08 AM EST Gender Identity Male 02/08/2020 3:11 PM EDT Sexual Orientation Not on file Travel History Travel Start Travel End [place] 05/17/2025 05/18/2025 documented as of this encounter Functional Status * Are you deaf or do you have serious difficulty hearing? Answer Date of Assessment Author No 11/11/2014 12:35 PM EDT Michelle Salinas (Rn)(Hist) * Are you blind or do you [...] Michelle Salinas (Rn)(Hist) documented in this encounter Plan of Treatment Upcoming Encounters Date Type Department Care Team (Latest Contact Info) Description 06/10/2025 12:30 PM EST Appointment Radiology [address] [place] [address] post op xray left knee 06/10/2025 1:00 PM EST Nurse Visit Orthopaedics [address] [place] [address] [place] [address] [place] [address] Surgical post op 07/21/2025 11:00 AM EST [facility] Endocrinology [address] [place] [address] Dinora Bourgeois MD [address] [place], [place] [phone] Follow-up pituitary tumor and medication refill 08/04/2025 3:40 PM EST [facility] Orthopaedics [address] [place], [place] [id number] Dany Rossi DO [address] [place], [place] [id number] 3 month phone Surgical post op documented as of this encounter Goals Goal Patient Goal Type Associated Problems Recent Progress Patient-Stated? Author Total Knee Replacement Cuff Cutter Care Plan Total Knee Replacement Cuff Cutter No Brigid Parker Autogenerated Goal Care Plan Autogenerated Problem No Brigid Parker documented as of this encounter Visit Diagnoses Not on filedocumented in this encounter Additional Health Concerns Active Problems Noted Date Diagnosed Date Total Knee Replacement Cuff Cutter 03/24/2025 Autogenerated Problem 03/24/2025 documented as of this encounter Care Teams Pharmacist Per Diem Relationship Specialty Start Date End Date Rickey Cross [address] [phone] PCP - General 04/06/10 04/22/25 Maury Mcnamara [address] [place] [phone] PCP - General Internal Medicine 04/23/25 documented as of this encounter
--- OUTSIDE RECORDS SUMMARY | 2025-05-20 04:19 | XMS_ITS | Encounter Summary ---
Author Organization [facility] Address [address] [place], [place] [id number] Care Team Providers Care Digital Marketing Strategist Name Role Phone Maury Mcnamara Primary Care Provider [phone] Source Comments In the event this information is protected by the Federal Confidentiality of Alcohol and Drug AbusePatient Records regulations: The Federal rules restrict any use of the information to criminally investigate or prosecute any alcohol or drug abuse patient.[facility] Encounter Details Date Type Department Care Team (Late st Contact Info) Description 04/27/2025 Orders Only Orthopaedics Story [address] [place] [address] Marcello Courtney PA-C [address] [facility] [address] [place] [address] Social History Tobacco Use Types Packs/Day Years [...] is lower risk 6 04/23/2024 Data from: https://www.neighborhoodatlas.[facility]/. Last address used for calculation [address] 04/23/2024 Sex and Gender Information Value Date Recorded Sex Assigned at Male 02/08/2020 3:11 PM EDT Legal Sex Male 8:08 AM EST Gender Identity Male 02/08/2020 3:11 PM EDT Sexual Orientation Not on file Travel History Travel Start Travel End [place] 05/17/2025 05/18/2025 documented as of this encounter Functional Status * Are you deaf or do you have serious difficulty hearing? Answer Date of Assessment Author No 11/11/2014 12:35 PM PANCHOT Michelle Salinas (Jessica)(Hist) * Are you blind or do you have serious difficulty seeing, even when wearing glasses? Answer Date of Assessment Author No 11/11/2014 12:35 PM Michelle Zepeda (Jessica)(Hist) * Do you have serious difficulty walking or climbing stairs? Answer Date of Assessment Author No 11/11/2014 12:35 PM Michelle Zepeda (Rn)(Hist) * Do you have difficulty dressing or bathing? Answer Date of Assessment Author No 11/11/2014 12:35 PM Michelle Zepeda (Rn)(Hist) * Because of a physical, mental, or emotional condition, do you have difficulty doing errands alone such as visiting a doctor's office or shopping? Answer Date of Assessment Author No 11/11/2014 12:35 PM Michelle Zepeda (Jessica)(Hist) documented as of this encounter Mental [...] 06/10/2025 12:30 PM EST Appointment Radiology [address] [place] [address] post op xray left knee 06/10/2025 1:00 PM EST Nurse Visit Orthopaedics [address] [place], [place] [phone] Babak Arambula, JESSICA [address] [place] [address] Surgical post op 07/21/2025 11:00 AM EST [facility] Endocrinology [address] [place] [address] Dinora Bourgeois MD [address] [place], [place] [phone] Follow-up pituitary tumor and medication refill 08/04/2025 3:40 PM EST [facility] Orthopaedics [address] [place] [address] Dany Rossi DO [address] [place], [place] [id number] 3 month phone Surgical post op documented as of this encounter Goals Goal Patient Goal Type Associated Problems Recent Progress Patient-Stated? Author Total Knee Replacement Typewriters Functional Tester Care Plan Total Knee Replacement Typewriters Functional Tester No Brigid Parker Autogenerated Goal Care Plan Autogenerated Problem No Brigid Parker documented as of this encounter Visit Diagnoses Not on filedocumented in this encounter Additional Health Concerns Active Problems Noted Date Diagnosed Date Total Knee Replacement Typewriters Functional Tester 03/24/2025 Autogenerated Problem 03/24/2025 documented as of this encounter Care Teams Digital Marketing Strategist Relationship Specialty Start Date End Date Maury Mcnamara [address] [phone] PCP - General Internal Medicine 04/23/25 documented as of this encounter
--- OUTSIDE RECORDS SUMMARY | 2025-05-20 04:19 | XMS_ITS | Encounter Summary ---
Author Organization [facility] Address [address] [place], [place] [address] Care Team Providers Care Community Service Aide Name Role Phone Rickey Cross Primary Care Provider [phone] Source Comments In the event this information is protected by the Federal Confidentiality of Alcohol and Drug AbusePatient Records regulations: The Federal rules restrict any use of the information to criminally investigate or prosecute any alcohol or drug abuse patient.[facility] Reason for Visit * Reason Comments Orders Encounter Details Date Type Department Care Team (Late st Contact Info) Description 03/30/2025 Telephone Orthopaedics [address] [place] [address] Marcello Courtney PA-C [address] [place] [address] [place], [place] [id number] Orders Social History Tobacco Use Types Packs/Day Years Used Date Smoking Tobacco: Every Day Cigarettes Smokeless Tobacco: Never Alcohol Use Standard Drinks/Week Comments No 0 (1 standard drink = 0.6 oz pur e alcohol) PHQ-2 Answer Date Recorded PHQ-2 score 0 03/21/2025 Area Deprivation Index Answer Date Chicho rded National Score (1-100), lower number is lower ri 78 04/23/2024 State Score (1-10), lower number is lower risk 6 04/23/2024 Data from: https://www.neighborhoodatlas.[facility].edu/. Last address used for calculation [address] 04/23/2024 Sex and Gender Information Value Date Recorded Sex Assigned at Male 02/08/2020 3:11 PM EDT Legal Sex Male 8:08 AM EST Gender Identity Male 02/08/2020 3:11 PM EDT Sexual Orientation Not on file Travel History Travel Start Travel End [place] 05/17/2025 05/18/2025 documented as of this encounter [...] Michelle Salinas (Tripp)(Hist) documented in this encounter Miscellaneous Notes * Telephone Encounter - Meredith Weinstein OCCA - 03/30/2025 12:37 PM EDT All documents faxed and confirmation received. SHAUN Brumfield * Telephone Encounter - Maura Eaton - 03/30/2025 12:26 PM EDT Andreas is calling Marcello Courtney PA-C today with concern regarding raised toilet seat and walker ordered on 03/24/25. He is asking that we fax orders, OVN and facesheet to [facility]. Fax numberis [phone], and phone number is [phone]. No chief complaint on file. Patient has been identified by name and birthdate. Duration of symptoms: N/A Person calling: self Call patient at: at home [phone] (cell) Was an appointment scheduled: No Closing statement: Results or non-symptom based questions: Thank you for calling [facility], your call will be returned within the next business day. Maura Isidro documented in this encounter Plan of Treatment Upcoming Encounters Date Type Department Care Team (Latest Contact Info) Description 06/10/2025 12:30 PM EST Appointment Radiology [address] [place] [address] post op xray left knee 06/10/2025 1:00 PM EST Nurse Visit Orthopaedics [address] [place] [address] [place] [address] [place] [address] Surgical post op 07/21/2025 11:00 AM EST [facility] Endocrinology [address] [place] [address] Dinora Bourgeois MD [address] [place] [address] Follow-up pituitary tumor and medication refill 08/04/2025 3:40 PM EST [facility] [address] [place] [address] Dany Rossi DO [address] [place], [place] [phone] 3 month phone Surgical post op documented as of this encounter Goals Goal Patient Goal Type Associated Problems Recent Progress Patient-Stated? Author Total Knee Replacement Healthcare Science Specialist Care Plan Total Knee Replacement Healthcare Science Specialist No Greg Parkeranette Autogenerated Goal Care Plan Autogenerated Problem No Brigid Parker documented as of this encounter Visit Diagnoses Not on filedocumented in this encounter Additional Health Concerns Active Problems Noted Date Diagnosed Date Total Knee Replacement Healthcare Science Specialist 03/24/2025 Autogenerated Problem 03/24/2025 documented as of this encounter Care Teams Community Service Aide Relationship Specialty Start Date End Date Rickey Cross [address] [place] [phone] PCP - General 04/06/10 04/22/25 documented as of this encounter
--- OUTSIDE RECORDS SUMMARY | 2025-05-20 04:19 | XMS_ITS | Encounter Summary ---
Author Organization [facility] Address [address] [place] [address] Care Team Providers Care Police Investigator Name Role Phone Rickey Cross A Primary Care Provider [phone] EpiMaury pepper Deidra Primary Care Provider [phone] Source Comments In the event this information is protected by the Federal Confidentiality of Alcohol and Drug AbusePatient Records regulations: The Federal rules restrict any use of the information to criminally investigate or prosecute any alcohol or drug abuse patient.[facility] Reason for Visit * Reason Comments Letter Approval Letter - Te stosterone 12.5mg/ACT(1%) TD Gel [ANTHEM] Encounter Details Date Type Department Care Team (Late st Contact Info) Description 04/30/2024 Telephone Endocrinology [address] [place] [address] Dinora Bourgeois MD [address] [place] [address] Letter (Approval Letter - Testosterone 12.5mg/ACT(1%) TD Gel [ANTHEM]) Social History Tobacco Use Types Packs/Day Years [...] is lower risk 6 04/23/2024 Data from: https://www.neighborhoodatlas.medicine.[facility].edu/. Last address used for calculation [address] [facility] 04/23/2024 Sex and Gender Information Value Date Recorded Sex Assigned at Male 02/08/2020 3:11 PM EDT Legal Sex Male 8:08 AM EST Gender Identity Male 02/08/2020 3:11 PM EDT Sexual Orientation Not on file Travel History Travel Start Travel End [place] 05/17/2025 05/18/2025 documented as of this encounter Functional Status * AUDIT-C Score Answer Date of Assessment Author 0 04/25/2025 1:20 PM EDT Nciole Delacruz LPN * Question Answer Date of [...] 12:35 PM EDT Michelle Salinas (Tripp)(Hist) documented as of this encounter Mental Status * Because of a physical, mental, or emotional condition, do you have serious difficulty concentrating, remembering, or making decisions? Answer Entry Date Author No 11/11/2014 12:35 PM EDT Michelle Salinas (Tripp)(Hist) documented in this encounter Miscellaneous Notes * Telephone Encounter - [place] Person - 04/30/2024 11:24 AM EDT Received an approval letter from [facility] [employer] for prescription: testosterone (ANDROGEL) 12.5 mg/ 1.25 gram (1 %) transdermal gel COVERAGE: 03/26/2024 through 04/25/2025 Letter has been indexed into chart for reference and review. KIN APARICIO Coal Weigher II Endocrinology & Metabolism [facility] X-20 documented in this encounter Plan of Treatment Upcoming Encounters Date Type Department Care Team (Latest Contact Info) Description 06/10/2025 12:30 PM EST Appointment Radiology [address] [place] [address] post op xray left knee 06/10/2025 1:00 PM EST Nurse Visit Orthopaedics [address] [place] [address] [place] [address] [place] [address] Surgical post op 07/21/2025 11:00 AM EST [facility] Endocrinology [address] [place] [address] Dinora Bourgeois MD [address] [place] [address] Follow-up pituitary tumor and medication refill 08/04/2025 3:40 PM EST [facility] Orthopaedics [address] [place], [place] [phone] Dany Rossi DO [address] [place], [place] [phone] 3 month phone Surgical post op documented as of this encounter Visit Diagnoses Not on filedocumented in this encounter Care Teams Police Investigator Relationship Specialty Start Date End Date Rickey Cross [address] [phone] PCP - General 04/06/10 04/22/25 Maury Mcnamara [address] [place] [phone] PCP - General Internal Medicine 04/23/25 documented as of this encounter
--- OUTSIDE RECORDS SUMMARY | 2025-05-20 04:19 | XMS_ITS | Encounter Summary ---
Author Organization [facility] Address [address] [place] [address] Care Team Providers Care Hardwood Floor Installer Name Role Phone Rickey Cross Primary Care Provider [phone] Source Comments In the event this information is protected by the Federal Confidentiality of Alcohol and Drug AbusePatient Records regulations: The Federal rules restrict any use of the information to criminally investigate or prosecute any alcohol or drug abuse patient.[facility] Encounter Details Date Type Department Care Team (Late st Contact Info) Description 03/30/2025 Orders Only Orthopaedics [address] [address] Dany Rossi, DO [address] [place] [address] Smoker (Primary Dx); Anemia, unspecified type; Primary osteoarthritis of left [...] is lower risk 6 04/23/2024 Data from: https://www.neighborhoodatlas.medicine.[facility].edu/. Last address used for calculation [address] [...] No 11/11/2014 12:35 PM PANCHOT Michelle Salinas (Rn)(Hist) * Do you have [...] 12:30 PM EST Appointment Radiology [address] [place] [address] post op xray left knee 06/10/2025 1:00 PM EST Nurse Visit Orthopaedics [address] [place] [address] [place] [address] [place] [address] Surgical post op 07/21/2025 11:00 AM EST [facility] Endocrinology [address] [place] [address] Dinora Bourgeois MD [address] [place], [place] [id number] Follow-up pituitary tumor and medication refill 08/04/2025 3:40 PM EST [facility] Orthopaedics [address] [place], [place] [id number] Dany Rossi DO [address] [place], [place] [id number] 3 month phone Surgical post op documented as of this encounter Goals Goal Patient Goal Type Associated Problems Recent Progress Patient-Stated? Author Total Knee Replacement Bolt Sorter Care Plan Total Knee Replacement Bolt Sorter No Brigid Parker Autogenerated Goal Care Plan Autogenerated Problem No Brigid Parker documented as of this encounter Results * CONFIRM BLOOD TYPE (04/25/2025 2:14 PM EDT) [facility] ABO A 04/25/2025 9:47 PM EDT CC MAIN BLOOD BANK Rh(D) Positive 04/25/2025 9:47 PM EDT CC MAIN BLOOD BANK Blood BLOOD SPECIMEN / Unknown Venipuncture / Unknown 04/25/2025 2:14 PM EDT 04/25/2025 2:16 PM EDT Dany Rossi DO BLOOD BANK Final Resul t CC MAIN BLOOD BANK [address] [facility] [address] [place] [address], * TYPE AND SCREEN,30 DAY (04/25/2025 2:12 PM EDT) [facility] ABO A 04/25/2025 10:08 PM EDT CC MAIN BLOOD BANK Rh(D) Positive 04/25/2025 10:08 PM EDT CC MAIN BLOOD BANK Antibody Screen Negative 04/25/2025 10:08 PM EDT MAIN BLOOD BANK Blood BLOOD SPECIMEN / Unknown Venipuncture / Unknown 04/25/2025 2:12 PM EDT 04/25/2025 2:16 PM EDT us Dany Rossi DO BLOOD BANK Final Resul t MAIN BLOOD BANK [address] [facility] [address] [place] [address], * (ABNORMAL) BASIC METABOLIC PANEL (04/25/2025 2:12 PM EDT) Glucose 90 74 - 99 mg/dL 04/25/2025 3:03 PM EDT [facility] Comment: The [place] Diabetes Association (ADA) provides guidance for cutoff values for fasting glucose and random glucose. The ADA defines fasting as no caloric intake for at least 8 hours. Fasting plasma glucose results between 100 to 125 mg/dL indicate increased risk for diabetes (prediabetes). Fasting plasma glucose results greater than or equal to 126 mg/dL meet the criteria for diagnosis of diabetes. In the absence of unequivocal hyperglycemia, results should be confirmed by repeat testing. In a patient with classic symptoms of hyperglycemia or hyperglycemic crisis, random plasma glucose results greater than or equal to 200 mg/dL meet the criteria for diagnosis of diabetes. Reference: Standards of Medical Care in Diabetes 2016, [place] Diabetes Association. Diabetes Care. 2016.39(Suppl 1). BUN 15 9 - 24 mg/dL 04/25/2025 3:03 PM EDT [facility] Creatinine 0.99 0.73 - 1.22 mg/dL 04/25/2025 3:03 PM EDT [facility] Sodium 134(L) 136 - 144 mmol/L 04/25/2025 3:03 PM EDT [facility] Potassium 3.9 3.7 - 5.1 mmol/L 04/25/2025 3:03 PM EDT [facility] Chloride 99 98 - 107 mmol/L 04/25/2025 3:03 PM EDT [facility] CO2 23 22 - 30 mmol/L 04/25/2025 3:03 PM EDT [facility] Anion Gap 12 8 - 15 mmol/L 04/25/2025 3:03 PM EDT [facility] Calcium, Total 9.3 8.5 - 10.2 mg/dL 04/25/2025 3:03 PM EDT [facility] Estimated Glomerular Filtration Rate 89 >=60 mL/min/1.7 3m 04/25/2025 3:03 PM EDT [facility] Comment:Estimated Glomerular Filtration Rate (eGFR) is calculated using the 2020 CKD-EPI creatinine equation. This equation utilizes serum creatinine, sex, and age as parameters. The creatinine assay has traceable calibration to isotope dilution- mass spectrometry. Refer to KDIGO guidelines for clinical interpretation. In patients with unstable renal function, e.g. those with acute kidney injury, the eGFR may not accurately reflect actual GFR. Blood BLOOD SPECIMEN / Unknown Venipuncture / Unknown 04/25/2025 2:12 PM EDT 04/25/2025 2:16 PM EDT us Dany Rossi DO LABORATORY Final Resul t [facility] [address] [place] [address], * IRON AND TIBC (04/25/2025 2:12 PM EDT) Iron 51 41 - 186 ug/dL 04/26/2025 1:15 AM EDT [facility] TIBC 268 232 - 386 ug/dL 04/26/2025 1:15 AM EDT [facility] Transferrin Saturation 19.0 15.0 - 57.0 % 04/26/2025 1:15 AM EDT [facility] Blood BLOOD SPECIMEN / Unknown Venipuncture / Unknown 04/25/2025 2:12 PM EDT 04/25/2025 2:16 PM EDT Dany Rossi LABORATORY Final Resul t Performing Organization Address City/[facility]/ZIP Co de Phone Number [facility] [address] [place] [address], [place] * FERRITIN (04/25/2025 2:12 PM EDT) Ferritin 358.0 30.3 - 565.7 ng/mL 04/26/2025 1:24 AM EDT [facility] Blood BLOOD SPECIMEN / Unknown Venipuncture / Unknown 04/25/2025 2:12 PM EDT 04/25/2025 2:16 PM EDT Dany Rossi LABORATORY Final Resul t Performing Organization Address [facility] Co de Phone Number [facility] [address] [place] [address], [place] * (ABNORMAL) COMPLETE BLOOD COUNT AND DIFFERENTIAL (04/25/2025 2:12 PM EDT) WBC 9.94 3.70 - 11.00 k/uL 04/25/2025 2:18 PM EDT [facility] RBC 4.78 4.20 - 6.00 m/uL 04/25/2025 2:18 PM EDT [facility] Hemoglobin 15.0 13.0 - 17.0 g/dL 04/25/2025 2:18 PM EDT [facility] Hematocrit 42.3 39.0 - 51.0 % 04/25/2025 2:18 PM EDT [facility] MCV 88.5 80.0 - 100.0 fL 04/25/2025 2:18 PM EDT [facility] MCH 31.4 26.0 - 34.0 pg 04/25/2025 2:18 PM EDT [facility] MCHC 35.5 30.5 - 36.0 g/dL 04/25/2025 2:18 PM EDT [facility] RDW-CV 14.2 11.5 - 15.0 % 04/25/2025 2:18 PM EDT [facility] Platelet Count 238 150 - 400 k/uL 04/25/2025 2:18 PM EDT [facility] MPV 9.7 9.0 - 12.7 fL 04/25/2025 2:18 PM EDT [facility] Neutrophils % 57.1 % 04/25/2025 2:18 PM EDT [facility] Abs Neut 5.68 1.45 - 7.50 k/uL 04/25/2025 2:18 PM EDT [facility] Lymphocytes % 26.7 % 04/25/2025 2:18 PM EDT [facility] Abs Lymph 2.65 1.00 - 4.00 k/uL 04/25/2025 2:18 PM EDT [facility] Monocytes % 9.7 % 04/25/2025 2:18 PM EDT [facility] Abs [facility] 0.96(H) <0.87 k/uL 04/25/2025 2:18 PM EDT [facility] Eosinophils % 4.6 % 04/25/2025 2:18 PM EDT [facility] Abs Eosin 0.46(H) <0.46 k/uL 04/25/2025 2:18 PM EDT [facility] Basophils % 0.9 % 04/25/2025 2:18 PM EDT [facility] Abs Baso 0.09 <0.11 k/uL 04/25/2025 2:18 PM EDT [facility] Immature Granulocytes % 1.0 % 04/25/2025 2:18 PM EDT [facility] Abs Immature Gran 0.10(H) <0.10 k/uL 025 2:18 PM EDT [facility] NRBC 0.0 /100 WBC 04/25/2025 2:18 PM EDT [facility] Absolute nRBC <0.01 <0.01 k/uL 04/25/2025 2:18 PM EDT [facility] Diff Type Auto 04/25/2025 2:18 PM EDT [facility] Blood BLOOD SPECIMEN / Unknown Venipuncture / Unknown 04/25/2025 2:12 PM EDT 04/25/2025 2:16 PM EDT Dany Rossi LABORATORY Final Resul t Performing Organization Address City/[facility] Co de Phone Number [facility] [address] [place] [address], [place] * (ABNORMAL) VITAMIN D 25 HYDROXY (04/25/2025 2:12 PM EDT) Vitamin D 25 Hydroxy 19.4(L) 31.0 - 80.0 ng/mL 04/26/2025 1:23 PM EDT [facility] Comment: Classification of 25 [place] Vitamin D status: Deficiency/Insufficiency: < or = 30 ng/ml. Sufficiency/Optimal Levels: 31-80 ng/mL Toxicity: > 100 ng/mL. Test performed by chemiluminescent immunoassay. Blood BLOOD SPECIMEN / Unknown Venipuncture / Unknown 04/25/2025 2:12 PM EDT 04/25/2025 2:16 PM EDT Narrative [facility] - 04/26/2025 1:23 PM EDT The reference range interval was based on an analysis of samples from healthy adults and may not pertain to children from 0-18 years old. Dany Rossi LABORATORY Final Resul t Performing Organization Address City/[facility]/ZIP Co de Phone Number [facility] [address] [place] [address], [place] * (ABNORMAL) NICOTINE/COTININE (04/25/2025 2:12 PM EDT) Nicotine <2 <2 ng/mL 04/27/2025 2:18 PM EDT [facility] Cotinine 48(H) <2 ng/mL 04/27/2025 2:18 PM EDT [facility] Comment: Active tobacco product user: [...] and its performance characteristics determined by the [facility] Department of Pathology and Laboratory Medicine. It has not been cleared or approved by the FDA. The [facility] Department of Pathology and Laboratory Medicine is regulated under CLIA as qualified to perform high- complexity testing. This test is used for clinical purposes. It should not be regarded as investigational or for research. Blood BLOOD SPECIMEN / Unknown Venipuncture / Unknown 04/25/2025 2:12 PM EDT 04/25/2025 2:16 PM EDT us Dany Rossi DO LABORATORY Final Resul t Performing Organization Address City/[facility]/ZIP Co de Phone Number [facility] [address] [place] [address], * ALBUMIN (04/25/2025 2:12 PM EDT) Albumin 4.1 3.9 - 4.9 g/dL 04/25/2025 3:03 PM EDT [facility] Blood BLOOD SPECIMEN / Unknown Venipuncture / Unknown 04/25/2025 2:12 PM EDT 04/25/2025 2:16 PM EDT us Dany Rossi DO LABORATORY Final Resul t [facility] [address] [place] [address], documented in this encounter Visit Diagnoses Diagnosis Smoker- Primary Tobacco use disorder Anemia, unspecified type Primary osteoarthritis of left knee Primary localized osteoarthrosis, lower leg documented in this encounter Additional Health Concerns Active Problems Noted Date Diagnosed Date Total Knee Replacement Bolt Sorter 03/24/2025 Autogenerated Problem 03/24/2025 documented as of this encounter Care Teams Hardwood Floor Installer Relationship Specialty Start Date End Date Rickey Cross [address] [address] [facility] [phone] PCP - General 04/06/10 04/22/25 documented as of this encounter
--- OUTSIDE RECORDS SUMMARY | 2025-05-20 04:19 | XMS_ITS | Encounter Summary ---
Author Organization [facility] Address [address] [place] [address] Care Team Providers Care Egg Setter Name Role Phone Rickey Cross A Primary Care Provider [phone] EpiMaury pepper Deidra Primary Care Provider [phone] Source Comments In the event this information is protected by the Federal Confidentiality of Alcohol and Drug AbusePatient Records regulations: The Federal rules restrict any use of the information to criminally investigate or prosecute any alcohol or drug abuse patient.[facility] Encounter Details Date Type Department Care Team (Late st Contact Info) Description 03/30/2025 Patient Msg Pre Anesthesia [address] [place] [address] Ann Valle APRN.[employer] [address] [place] [address] Rescheduled Appointment Social History Tobacco Use Types Packs/Day Years [...] is lower risk 6 04/23/2024 Data from: https://www.neighborhoodatlas.medicine.[facility].edu/. Last address used for calculation [address] 04/23/2024 Sex and Gender Information Value Date Recorded Sex Assigned at Male 02/08/2020 3:11 PM EDT Legal Sex Male 8:08 AM EST Gender Identity Male 02/08/2020 3:11 PM EDT Sexual Orientation Not on file Travel History Travel Start Travel End [place] 05/17/2025 05/18/2025 documented as of this encounter [...] PM EST Appointment Radiology [address] [place] [address] post op xray left knee 06/10/2025 1:00 PM EST Nurse Visit Orthopaedics [address] [place] [address] Babak Arambula, JESSICA [address] [place] [address] Surgical post op 07/21/2025 11:00 AM EST [facility] Endocrinology [address] [place] [address] Dinora Bourgeois MD [address] [place] [address] Follow-up pituitary tumor and medication refill 08/04/2025 3:40 PM EST [facility] Orthopaedics [address] [place] [address] Dany Rossi DO [address] [place], [place] [phone] 3 month phone Surgical post op documented as of this encounter Goals Goal Patient Goal Type Associated Problems Recent Progress Patient-Stated? Author Total Knee Replacement Arts Administrator Care Plan Total Knee Replacement Arts Administrator No Brigid Parker Autogenerated Goal Care Plan Autogenerated Problem No Brigid Parker documented as of this encounter Visit Diagnoses Not on filedocumented in this encounter Additional Health Concerns Active Problems Noted Date Diagnosed Date Total Knee Replacement Arts Administrator 03/24/2025 Autogenerated Problem 03/24/2025 documented as of this encounter Care Teams Egg Setter Relationship Specialty Start Date End Date Rickey Cross [address] [phone] PCP - General 04/06/10 04/22/25 Maury Mcnamara [address] [place] [phone] PCP - General Internal Medicine 04/23/25 documented as of this encounter
--- OUTSIDE RECORDS SUMMARY | 2025-05-20 04:19 | XMS_ITS | Encounter Summary ---
Author Organization [facility] Address [address] [place], [place] [id number] Care Team Providers Care Academic Registrar Name Role Phone Maury Mcnamara Primary Care Provider [phone] Source Comments In the event this information is protected by the Federal Confidentiality of Alcohol and Drug AbusePatient Records regulations: The Federal rules restrict any use of the information to criminally investigate or prosecute any alcohol or drug abuse patient.[facility] Encounter Details Date Type Department Care Team (Late st Contact Info) Description 04/25/2025 Patient Msg Pre Anesthesia [address] [place] [address] Provider, Gildardo Pre Op Instructions Social History Tobacco Use Types Packs/Day Years [...] is lower risk 6 04/23/2024 Data from: https://www.neighborhoodatlas.[facility]/. Last address used for calculation [address] [facility] 04/23/2024 Sex and Gender Information Value Date Recorded Sex Assigned at Male 02/08/2020 3:11 PM EDT Legal Sex Male 8:08 AM EST Gender Identity Male 02/08/2020 3:11 PM EDT Sexual Orientation Not on file Travel History Travel Start Travel End [place] 05/17/2025 05/18/2025 documented as of this encounter [...] No 11/11/2014 12:35 PM PANCHOT Michelle Salinas (Tripp)(Hist) * Do you have serious difficulty walking or climbing stairs? Answer Date of Assessment Author No 11/11/2014 12:35 PM PANCHOT Michelle Salinas (Tripp)(Hist) * Do you have difficulty dressing or bathing? Answer Date of Assessment Author No 11/11/2014 12:35 PM Michelle Zepeda (Rn)(Hist) * Because of a physical, mental, or emotional condition, do you have difficulty doing errands alone such as visiting a doctor's office or shopping? Answer Date of Assessment Author No 11/11/2014 12:35 PM Michelle Zepeda (Rn)(Hist) documented as of this encounter Mental Status * Because of a physical, mental, or emotional condition, do you have serious difficulty concentrating, remembering, or making decisions? Answer Entry Date Author No 11/11/2014 12:35 PM Michelle Zepeda (Rn)(Hist) documented in this encounter Plan of Treatment Upcoming Encounters Date Type Department Care Team (Latest Contact Info) Description 06/10/2025 12:30 PM EST Appointment Radiology [address] [place] [address] post op xray left knee 06/10/2025 1:00 PM EST Nurse Visit Orthopaedics [address] [place], [place] [phone] [place] [address] [place] [address] Surgical post op 07/21/2025 11:00 AM EST [facility] Endocrinology [address] [place] [address] Dinora Bourgeois MD [address] [place] [address] Follow-up pituitary tumor and medication refill 08/04/2025 3:40 PM EST [facility] Orthopaedics [address] [place] [address] Dany Rossi DO [address] [place] [address] 3 month phone Surgical post op documented as of this encounter Goals Goal Patient Goal Type Associated Problems Recent Progress Patient-Stated? Author Total Knee Replacement Water Resource Specialist Care Plan Total Knee Replacement Water Resource Specialist No Brigid Parker Autogenerated Goal Care Plan Autogenerated Problem No Brigid Parker documented as of this encounter Visit Diagnoses Not on filedocumented in this encounter Additional Health Concerns Active Problems Noted Date Diagnosed Date Total Knee Replacement Water Resource Specialist 03/24/2025 Autogenerated Problem 03/24/2025 documented as of this encounter Care Teams Academic Registrar Relationship Specialty Start Date End Date Maury Mcnamara [address] [phone] PCP - General Internal Medicine 04/23/25 documented as of this encounter
--- OUTSIDE RECORDS SUMMARY | 2025-05-20 04:19 | XMS_ITS | Encounter Summary ---
Author Organization [facility] Address [address] [place] [address] Care Team Providers Care Vice President Industrial Relations Name Role Phone Maury Mcnamara Primary Care Provider Source Comments In the event this information is protected by the Federal Confidentiality of Alcohol and Drug AbusePatient Records regulations: The Federal rules restrict any use of the information to criminally investigate or prosecute any alcohol or drug abuse patient.[facility] Encounter Details Date Type Department Care Team (Late st Contact Info) Description 04/27/2025 Patient Msg Orthopaedics [place] [address] [place] [address] Marcello Courtney PA-C [address] [facility] [address] [place] [address] Vitamin D Social History Tobacco Use Types Packs/Day Years [...] is lower risk 6 04/23/2024 Data from: https://www.neighborhoodatlas.medicine.[facility]/. Last address used for calculation [address] 04/23/2024 Sex and Gender Information Value Date Recorded Sex Assigned at Male 02/08/2020 3:11 PM EDT Legal Sex Male 8:08 AM EST Gender Identity Male 02/08/2020 3:11 PM EDT Sexual Orientation Not on file Travel History Travel Start Travel End [place] 05/17/2025 05/18/2025 documented as of this encounter Functional Status * Are you deaf or do you have serious difficulty hearing? Answer Date of Assessment Author No 11/11/2014 12:35 PM PANCHOT Michelle Salinas (Tripp)(Hist) * Are you blind or do you have serious difficulty seeing, even when wearing glasses? Answer Date of Assessment Author No 11/11/2014 12:35 PM Michelle Zepeda (Rn)(Hist) * Do you have serious difficulty [...] 06/10/2025 12:30 PM EST Appointment Radiology [address] [place] [address] post op xray left knee 06/10/2025 1:00 PM EST Nurse Visit Orthopaedics [address] [place], [place] [phone] [place] [address] [place] [address] Surgical post op 07/21/2025 11:00 AM EST [facility] Endocrinology [address] [place] [address] Dinora Bourgeois MD [address] [place], [place] [id number] Follow-up pituitary tumor and medication refill 08/04/2025 3:40 PM EST [facility] Orthopaedics [address] [place] [address] Dany Rossi DO [address] [place], [place] [phone] 3 month phone Surgical post op documented as of this encounter Goals Goal Patient Goal Type Associated Problems Recent Progress Patient-Stated? Author Total Knee Replacement Ruby On Rails Engineer Care Plan Total Knee Replacement Ruby On Rails Engineer No Brigid Parker Autogenerated Goal Care Plan Autogenerated Problem No Brigid Parker documented as of this encounter Visit Diagnoses Not on filedocumented in this encounter Additional Health Concerns Active Problems Noted Date Diagnosed Date Total Knee Replacement Ruby On Rails Engineer 03/24/2025 Autogenerated Problem 03/24/2025 documented as of this encounter Care Teams Vice President Industrial Relations Relationship Specialty Start Date End Date Maury Mcnamara [address] [place] [phone] PCP - General Internal Medicine 04/23/25 documented as of this encounter
--- OUTSIDE RECORDS SUMMARY | 2025-05-20 04:19 | XMS_ITS | Encounter Summary ---
Author Organization [facility] Address [address] [place], [place] [id number] Care Team Providers Care Racquet Maker Name Role Phone Maury Mcnamara Primary Care Provider [phone] Source Comments In the event this information is protected by the Federal Confidentiality of Alcohol and Drug AbusePatient Records regulations: The Federal rules restrict any use of the information to criminally investigate or prosecute any alcohol or drug abuse patient.[facility] Encounter Details Date Type Department Care Team (Latest Contact Info) Description 05/18/2025 Travel Social History Tobacco Use Types Packs/Day Years [...] Data from: https://www.neighborhoodatlas.medicine.[facility]/. Last address used for calculation [address] [...] of Assessment Author No 05/18/2025 4:15 PM Nikko Antoine RN * Do you have difficulty [...] Kat Antoine RN documented in this encounter Plan of Treatment Upcoming Encounters Date Type Department Care Team (Latest Contact Info) Description 06/10/2025 12:30 PM EST Appointment Radiology [address] [place] [address] post op xray left knee 06/10/2025 1:00 PM EST Nurse Visit Orthopaedics [address] [place], [place] [address] [place] [address] [place] [address] Surgical post op 07/21/2025 11:00 AM EST [facility] Endocrinology [address] [place] [address] Dinora Bourgeois MD [address] [place] [address] Follow-up pituitary tumor and medication refill 08/04/2025 3:40 PM EST [facility] Orthopaedics [address] [place], [place] [id number] Dany Rossi DO [address] [place], [place] [id number] 3 month phone Surgical post op documented as of this encounter Goals Goal Patient Goal Type Associated Problems Recent Progress Patient-Stated? Author Total Knee Replacement Motor Racer Care Plan Total Knee Replacement Motor Racer No Brigid Parker Autogenerated Goal Care Plan Autogenerated Problem No Brigid Parker documented as of this encounter Visit Diagnoses Not on filedocumented in this encounter Additional Health Concerns Active Problems Noted Date Diagnosed Date Total Knee Replacement Motor Racer 03/24/2025 Autogenerated Problem 03/24/2025 documented as of this encounter Care Teams Racquet Maker Relationship Specialty Start Date End Date Maury Mcnamara [address] [address] PCP - General Internal Medicine 04/23/25 documented as of this encounter
--- OUTSIDE RECORDS SUMMARY | 2025-05-20 04:19 | XMS_ITS | Encounter Summary ---
Author Organization [facility] Address [address] [place] [address] Care Team Providers Care Loop Drier Operator Name Role Phone Rickey Cross Primary Care Provider [phone] Alyssa Gonzalez MD Unavailable [phone] Maury Mcnamara Primary Care Provider [phone] Source Comments In the event this information is protected by the Federal Confidentiality of Alcohol and Drug AbusePatient Records regulations: The Federal rules restrict any use of the information to criminally investigate or prosecute any alcohol or drug abuse patient.[facility] Reason for Visit * Reason Comments HST Check In (Adult) Encounter Details Date Type Department Care Team (Late st Contact Info) Description 11/15/2014 Abstract Neurology [address] [id number] Main, Sleep Center [address] [id number] HST Check In (Adult) Social History Tobacco Use Types Packs/Day Years Used Date Smoking Tobacco: Every Day Cigarettes Smokeless Tobacco: Never Alcohol Use Standard Drinks/Week Comments No 0 (1 standard drink = 0.6 oz pur e alcohol) Sex and Gender Information Value Date Recorded Sex Assigned at Male 02/08/2020 3:11 PM EDT Legal Sex Male 8:08 AM EST Gender Identity Male 02/08/2020 3:11 PM EDT Sexual Orientation Not on file Travel History Travel Start Travel End [place] 05/17/2025 05/18/2025 documented as of this encounter [...] 11/11/2014 12:35 PM PANCHOT Michelle Salinas (Tripp)(Hist) documented as of this encounter Mental Status * Because of a physical, mental, or emotional condition, do you have serious difficulty concentrating, remembering, or making decisions? Answer Entry Date Author No 11/11/2014 12:35 PM Michelle Zepeda (Tripp)(Hist) documented in this encounter Plan of Treatment Upcoming Encounters Date Type Department Care Team (Latest Contact Info) Description 06/10/2025 12:30 PM EST Appointment Radiology [address] [place] [address] post op xray left knee 06/10/2025 1:00 PM EST Nurse Visit Orthopaedics [address] [place] [address] [place] [address] [place] [address] Surgical post op 07/21/2025 11:00 AM EST [facility] Endocrinology [address] [place] [address] Dinora Bourgeois MD [address] [place] [address] Follow-up pituitary tumor and medication refill 08/04/2025 3:40 PM EST [facility] Orthopaedics [address] [place], [place] [id number] Dany Rossi DO [address] [place], [place] [id number] 3 month phone Surgical post op documented as of this encounter Visit Diagnoses Not on filedocumented in this encounter Care Teams Loop Drier Operator Relationship Specialty Start Date End Date Rickey Cross [address] [address] PCP - General 04/06/10 04/22/25 Maury Mcnamara [address] [place] [address] PCP - General Internal Medicine 04/23/25 Alyssa Gonzalez MD [address] [address] Primary Staff Physician Cardiology 10/12/14 6 documented as of this encounter
--- OUTSIDE RECORDS SUMMARY | 2025-05-20 04:19 | XMS_ITS | Clinical Summary ---
Author Organization [facility] Address [address] [place] [address] Care Team Providers Care Hereditary Cancer Program Coordinator Name Role Phone Unavailable Primary Care Provider Unavailabl e Allergies No known active allergies Medications Cabergoline 0.5 mg Tablet Take 0.5 Tablets by mouth 3 days a week. Active acetaminophen (TYLENOL) 500 mg tablet Take 500 mg by mouth every 4 hours as needed for Pain. Active diclofenac (VOLTAREN) 25 mg EC tablet Take 25 mg by mouth 2 times daily. Active Active Problems Problem Noted Date Diagnosed Date Acute medial meniscus tear of left knee 03/06/20 23 Family History Medical History Relation Name Comments Anesthesia Complications Neg Hx Heart Problems Neg Hx Social History Tobacco Use Types Packs/Day Years Used Date Smoking Tobacco: Every Day Cigarettes Smokeless Tobacco: Never Tobacco Cessation:Ready to Q uit: Not Asked; Counseling Given: Not Answered Alcohol Use Standard Drinks/Week Comments Never 0 (1 standard drink = 0.6 oz pur e alcohol) Sex and Gender Information Value Date Recorded Sex Assigned at Not on file Legal Sex Male 1:45 PM EDT Gender Identity Not on file Sexual Orientation Not on file Last Filed Vital Signs Vital Sign Reading Time Taken Comments Blood Pressure 131/76 03/06/2023 10:54 AM EDT Pulse 63 03/06/2023 10:54 AM EDT Temperature 36.2 C (97.1 F) 03/06/2023 10:45 AM EDT Respiratory Rate 18 03/06/2023 10:54 AM EDT Oxygen Saturation 94% 03/06/2023 10:54 AM EDT Inhaled Oxygen Concentration - - Weight 127 kg (279 lb 15.8 oz) 03/06/2023 6:52 A M EDT Height 190.5 cm (6' 3 ) 03/06/2023 6:52 AM EDT Body Mass Index 35 03/06/2023 6:52 AM EDT Plan of Treatment Health Maintenance Due Date Last Done Comments Cologuard 1967 Colonoscopy 1967 Colorectal Cancer Screening 1967 FIT 1967 Tobacco Cessation Counseling 1979 Lipid Screening 09/30/1985 Tetanus Vaccination (Every 10 Years) 09/30/1985 Pneumococcal Vaccine: 50+ Years (1 of 2 - PCV) 987 Zoster-RZV(Shingrix) (1 of 2) 09/30/2017 Depression Screening 07/14/2024 COVID-19 Vaccine (1 - season) 2025 Influenza Vaccination (#1) 2025 Medical Devices Implanted Type Area Race Engine Builder Device Identifier Shelf Expiration Date Model / Serial / Lot Cement Bone Simplex Tobramycin - [id number] Implanted:Qty: 1 on 03/06/2023 by Todd Cummings MD at [facility] Left: Knee [facility] 03/13/2024 [id number] / / [id number] Insurance Member Subscriber Plan / Payer (Ef fective 2016-Present) Name:Juan Orosco Relation to Subscriber:Self Name:Juan Orosco Payer ID:[id number] (NAIC) Group ID:[id number] Type:PPO Address: [facility] [address] [place] [id number]
--- OUTSIDE RECORDS SUMMARY | 2025-05-20 04:19 | XMS_ITS | Encounter Summary ---
Author Organization [facility] Address [address] [place], [place] [address] Care Team Providers Care Catering Barista Name Role Phone Maury Mcnamara Primary Care Provider [phone] Source Comments In the event this information is protected by the Federal Confidentiality of Alcohol and Drug AbusePatient Records regulations: The Federal rules restrict any use of the information to criminally investigate or prosecute any alcohol or drug abuse patient.[facility] Encounter Details Date Type Department Care Team (Latest Contact Info) Description 04/25/2025 Travel Social History Tobacco Use Types Packs/Day [...] is lower risk 6 04/23/2024 Data from: https://www.neighborhoodatlas.medicine.[facility]/. Last address used for calculation [address] [...] Patient does not drink 04/25/2025 1:20 PM PANCHOT Carli Dealcruz LPN Q3: How often do you have six or more drinks on one occasion? Never 04/25/2025 1:20 PM PANCHOT Carli Delacruz LP N * Are you [...] 12:35 PM PANCHOT Michelle Salinas (Rn)(Hist) * Because of a [...] 06/10/2025 12:30 PM EST Appointment Radiology [address] [place] [address] post op xray left knee 06/10/2025 1:00 PM EST Nurse Visit Orthopaedics [address] [place], [place] [id number] [place] [address] [place] [address] Surgical post op 07/21/2025 11:00 AM EST [facility] Endocrinology [address] [place] [address] Dinora Bourgeois MD [address] [place] [address] Follow-up pituitary tumor and medication refill 08/04/2025 3:40 PM EST [facility] Orthopaedics [address] [place], [place] [phone] Dany Rossi DO [address] [place], [place] [phone] 3 month phone Surgical post op documented as of this encounter Goals Goal Patient Goal Type Associated Problems Recent Progress Patient-Stated? Author Total Knee Replacement Bike Technician Care Plan Total Knee Replacement Bike Technician No Brigid Parker Autogenerated Goal Care Plan Autogenerated Problem No Brigid Parker documented as of this encounter Visit Diagnoses Not on filedocumented in this encounter Additional Health Concerns Active Problems Noted Date Diagnosed Date Total Knee Replacement Bike Technician 03/24/2025 Autogenerated Problem 03/24/2025 documented as of this encounter Care Teams Catering Barista Relationship Specialty Start Date End Date Maury Mcnamara [address] [address] PCP - General Internal Medicine 04/23/25 documented as of this encounter
--- OUTSIDE RECORDS SUMMARY | 2025-05-20 04:19 | XMS_ITS | Encounter Summary ---
Author Organization [facility] Address [address] [place] [address] Care Team Providers Care Medical Claims Representative Name Role Phone TayRickey milligan A Primary Care Provider [phone] Epishantelle Maury Gay Primary Care Provider [phone] Source Comments In the event this information is protected by the Federal Confidentiality of Alcohol and Drug AbusePatient Records regulations: The Federal rules restrict any use of the information to criminally investigate or prosecute any alcohol or drug abuse patient.[facility] Reason for Visit * Reason Comments Insurance Authorization Testosterone (AN DROGEL) 12.5 mg/ 1.25 gram (1 %) transdermal gel [ANTHEM] Encounter Details Date Type Department Care Team (Late st Contact Info) Description 04/30/2024 Telephone Endocrinology [address] [place] [phone] Dinora Bourgeois MD [address] [place] [address] Insurance Authorization (Testosterone (ANDROGEL) 12.5 mg/ 1.25 gram (1 %) transdermal gel [ANTHEM]) Social History Tobacco Use Types Packs/Day [...] is lower risk 6 04/23/2024 Data from: https://www.neighborhoodatlas.medicine.[facility]/. Last address used for calculation [address] [facility] 04/23/2024 Sex and Gender Information Value [...] Michelle Salinas (Rn)(Hist) documented in this encounter Miscellaneous Notes * Telephone Encounter - [place] Person - 04/30/2024 11:23 AM EDT Disregard. Approval letter received not long after initial request. KIN APARICIO Gift Basket Packer II Endocrinology & Metabolism [facility] X-20 * Telephone Encounter - [place] Person - 04/30/2024 9:52 AM EDT Received a prior authorization request from [facility] via [employer] for prescription: testosterone (ANDROGEL) 12.5 mg/ 1.25 gram (1 %) transdermal gel REFERENCE KIMBROUGH: [id number] Submitted request via fax to [facility] Endocrinology Prior Authorizations for processing and initiation. Transmitted successfully. KIN APARICIO Gift Basket Packer II Endocrinology & Metabolism [facility] X-20 documented in this encounter Plan of Treatment Upcoming Encounters Date Type Department Care Team (Latest Contact Info) Description 06/10/2025 12:30 PM EST Appointment Radiology [address] [place] [address] post op xray left knee 06/10/2025 1:00 PM EST Nurse Visit Orthopaedics [address] [place] [address] [place] [address] [place] [address] Surgical post op 07/21/2025 11:00 AM EST [facility] Endocrinology [address] [place] [address] Dinora Bourgeois MD [address] [place], [place] [address] Follow-up pituitary tumor and medication refill 08/04/2025 3:40 PM EST [facility] Orthopaedics [address] [place], [place] [address] Dany Rossi DO [address] [place], [place] [phone] 3 month phone Surgical post op documented as of this encounter Visit Diagnoses Not on filedocumented in this encounter Care Teams Medical Claims Representative Relationship Specialty Start Date End Date Rickey Cross [address] [address] PCP - General 04/06/10 04/22/25 Maury Mcnamara [address] [place] [phone] PCP - General Internal Medicine 04/23/25 documented as of this encounter
--- OUTSIDE RECORDS SUMMARY | 2025-05-20 04:20 | XMS_ITS | Encounter Summary ---
Author Organization [facility] Address [address] [place] [address] Care Team Providers Care Hanging Flags Decorator Name Role Phone Rickey Cross A Primary Care Provider [phone] EpiMaury pepper Deidra Primary Care Provider [phone] Source Comments In the event this information is protected by the Federal Confidentiality of Alcohol and Drug AbusePatient Records regulations: The Federal rules restrict any use of the information to criminally investigate or prosecute any alcohol or drug abuse patient.[facility] Encounter Details Date Type Department Care Team (Late st Contact Info) Description 07/24/2021 Patient Msg Endocrinology [address] [place] [phone] Dinora Bourgeois MD [address] [place] [address] Labs need for testosterone prescription Social History Tobacco Use Types Packs/Day Years Used Date Smoking Tobacco: Every Day Cigarettes Smokeless Tobacco: Never Alcohol Use Standard Drinks/Week Comments No 0 (1 standard drink = 0.6 oz pur e alcohol) Area Deprivation Index Answer Date Chicho rded National Score (1-100), lower number is lower ri sk Not on file 06/19/2020 State Score (1-10), lower number is lower risk N ot on file 06/19/2020 Data from: https://www.neighborhoodatlas.medicine.[facility].edu/. Last address used for calculation Not on file 06/19/2020 Sex and Gender Information Value Date Recorded [...] Michelle Salinas (Tripp)(Hist) documented in this encounter Plan of Treatment Upcoming Encounters Date Type Department Care Team (Latest Contact Info) Description 06/10/2025 12:30 PM EST Appointment Radiology [address] [place] [address] post op xray left knee 06/10/2025 1:00 PM EST Nurse Visit Orthopaedics [address] [place], [place] [address] [place] [address] [place] [address] Surgical post op 07/21/2025 11:00 AM EST [facility] Endocrinology [address] [place] [address] Dinora Bourgeois MD [address] [place], [place] [phone] Follow-up pituitary tumor and medication refill 08/04/2025 3:40 PM EST [facility] Orthopaedics [address] [place], [place] [address] Dany Rossi DO [address] [place], [place] [phone] 3 month phone Surgical post op documented as of this encounter Visit Diagnoses Not on filedocumented in this encounter Care Teams Hanging Flags Decorator Relationship Specialty Start Date End Date Rickey Cross [address] [phone] PCP - General 04/06/10 04/22/25 Maury Mcnamara [address] [place] [address] PCP - General Internal Medicine 04/23/25 documented as of this encounter
--- OUTSIDE RECORDS SUMMARY | 2025-05-20 04:20 | XMS_ITS | Encounter Summary ---
Author Organization [facility] Address [address] [place] [address] Care Team Providers Care Senior Audit Manager Name Role Phone Rickey Cross Deidra Primary Care Provider Source Comments In the event this information is protected by the Federal Confidentiality of Alcohol and Drug AbusePatient Records regulations: The Federal rules restrict any use of the information to criminally investigate or prosecute any alcohol or drug abuse patient.[facility] Encounter Details Date Type Department Care Team (Latest Contact Info) Description 03/21/2025 Travel Social History Tobacco Use Types Packs/Day [...] is lower risk 6 04/23/2024 Data from: https://www.neighborhoodatlas.medicine.[facility].edu/. Last address used for calculation [address] [...] 11/11/2014 12:35 PM PANCHOT Michelle Salinas (Rn)(Hist) documented as of this encounter Mental Status * Because of a physical, mental, or emotional condition, do you have serious difficulty concentrating, remembering, or making decisions? Answer Entry Date Author No 11/11/2014 12:35 PM PANCHOT Michelle Salinas (Tripp)(Hist) documented in this encounter Plan of Treatment Upcoming Encounters Date Type Department Care Team (Latest Contact Info) Description 06/10/2025 12:30 PM EST Appointment Radiology [address] [place] [address] post op xray left knee 06/10/2025 1:00 PM EST Nurse Visit Orthopaedics [address] [place] [address] [place] [address] [place] [address] Surgical post op 07/21/2025 11:00 AM EST [facility] Endocrinology [address] [place] [address] Dinora Bourgeois MD [address] [place] [address] Follow-up pituitary tumor and medication refill 08/04/2025 3:40 PM [facility] Orthopaedics [address] [place] [address] Dany Rossi DO [address] [place], [place] [phone] 3 month phone Surgical post op documented as of this encounter Visit Diagnoses Not on filedocumented in this encounter Care Teams Senior Audit Manager Relationship Specialty Start Date End Date Rickey Cross [address] [phone] PCP - General 04/06/10 04/22/25 documented as of this encounter
--- OUTSIDE RECORDS SUMMARY | 2025-05-20 04:20 | XMS_ITS | Encounter Summary ---
Author Organization [facility] Address [address] [place] [address] Care Team Providers Care Cloth Stretcher Name Role Phone Rickey Cross A Primary Care Provider [phone] EpiMaury pepper Deidra Primary Care Provider [phone] Source Comments In the event this information is protected by the Federal Confidentiality of Alcohol and Drug AbusePatient Records regulations: The Federal rules restrict any use of the information to criminally investigate or prosecute any alcohol or drug abuse patient.[facility] Encounter Details Date Type Department Care Team (Late st Contact Info) Description 12/10/2023 Patient Msg Endocrinology [address] [place] [phone] Dinora Bourgeois MD [address] [place] [address] Appointment Request Social History Tobacco Use Types Packs/Day Years Used Date Smoking Tobacco: Every Day Cigarettes Smokeless Tobacco: Never Alcohol Use Standard Drinks/Week Comments No 0 (1 standard drink = 0.6 oz pur e alcohol) Area Deprivation Index Answer Date Chicho rded National Score (1-100), lower number is lower ri 64 09/17/2022 State Score (1-10), lower number is lower risk N ot on file 09/17/2022 Data from: https://www.neighborhoodatlas.[facility]/. Last address used for calculation [address] 09/17/2022 Sex and Gender Information Value Date Recorded Sex Assigned at Male 02/08/2020 3:11 PM EDT Legal Sex Male 8:08 AM EST Gender Identity Male 02/08/2020 3:11 PM EDT Sexual Orientation Not on file Travel History Travel Start Travel End [place] 05/17/2025 05/18/2025 documented as of this encounter [...] PM EST Appointment Radiology [address] [place] [address] post op xray left knee 06/10/2025 1:00 PM EST Nurse Visit Orthopaedics [address] [place], [place] [phone] [place] [address] [place] [address] Surgical post op 07/21/2025 11:00 AM EST [facility] Endocrinology [address] [place] [address] Dinora Bourgeois MD [address] [place], [place] [phone] Follow-up pituitary tumor and medication refill 08/04/2025 3:40 PM EST [facility] Orthopaedics [address] [place], [place] [id number] Dany Rossi DO [address] [place], [place] [id number] 3 month phone Surgical post op documented as of this encounter Visit Diagnoses Not on filedocumented in this encounter Care Teams Cloth Stretcher Relationship Specialty Start Date End Date Rickey Cross [address] [address] PCP - General 04/06/10 04/22/25 Maury Mcnamara [address] [place] [phone] PCP - General Internal Medicine 04/23/25 documented as of this encounter
--- OUTSIDE RECORDS SUMMARY | 2025-05-20 04:20 | XMS_ITS | Encounter Summary ---
Author Organization [facility] Address [address] [place] [id number] Care Team Providers Care Child Welfare Caseworker Name Role Phone Rickey Cross A Primary Care Provider [phone] EpiMaury pepper Deidra Primary Care Provider [phone] Source Comments In the event this information is protected by the Federal Confidentiality of Alcohol and Drug AbusePatient Records regulations: The Federal rules restrict any use of the information to criminally investigate or prosecute any alcohol or drug abuse patient.[facility] Encounter Details Date Type Department Care Team (Late st Contact Info) Description 04/19/2024 Patient [facility] [address] [address] Jahaira Robbins RPh At your next appointment, choose [facility]. Social History Tobacco Use Types Packs/Day Years [...] 6 04/23/2024 Data from: https://www.neighborhoodatlas.medicine.[facility]/. Last address used for calculation [address] 04/23/2024 Sex and Gender Information Value Date Recorded Sex Assigned at Male 02/08/2020 3:11 PM EDT Legal Sex Male 8:08 AM EST Gender Identity Male 02/08/2020 3:11 PM EDT Sexual Orientation Not on file Travel History Travel Start Travel End [place] 05/17/2025 05/18/2025 documented as of this encounter [...] PM EST Appointment Radiology [address] [place] [address] post op xray left knee 06/10/2025 1:00 PM EST Nurse Visit Orthopaedics [address] [place] [address] [place] [address] [place] [address] Surgical post op 07/21/2025 11:00 AM EST [facility] Endocrinology [address] [place] [address] Dinora Bourgeois MD [address] [facility] [place] [address] Follow-up pituitary tumor and medication refill 08/04/2025 3:40 PM EST [employer] [facility] Orthopaedics [address] [place] [address] Dany Rossi DO [address] [place], [place] [id number] 3 month phone Surgical post op documented as of this encounter Visit Diagnoses Not on filedocumented in this encounter Care Teams Child Welfare Caseworker Relationship Specialty Start Date End Date Rickey Cross [address] [phone] PCP - General 04/06/10 04/22/25 Maury Mcnamara [address] [place] [phone] PCP - General Internal Medicine 04/23/25 documented as of this encounter
--- OUTSIDE RECORDS SUMMARY | 2025-05-20 04:20 | XMS_ITS | Encounter Summary ---
Author Organization [facility] Address [address] [place] [address] Care Team Providers Care [place] Aide Name Role Phone Rickey Cross Deidra Primary Care Provider [phone] Epishantelle Maury Gay Primary Care Provider Source Comments In the event this information is protected by the Federal Confidentiality of Alcohol and Drug AbusePatient Records regulations: The Federal rules restrict any use of the information to criminally investigate or prosecute any alcohol or drug abuse patient.[facility] Encounter Details Date Type Department Care Team (Late st Contact Info) Description 06/03/2016 Patient Msg Medical Records [address] [place] [address] Provider, [facility] recent lab results Social History Tobacco Use Types Packs/Day Years [...] 11/11/2014 12:35 PM Michelle Zepeda (Rn)(Hist) * Are you blind or do [...] 06/10/2025 12:30 PM EST Appointment Radiology [address] [place] [address] post op xray left knee 06/10/2025 1:00 PM EST Nurse Visit Orthopaedics [address] [place] [address] [place] [address] [place] [address] Surgical post op 07/21/2025 11:00 AM EST [facility] Endocrinology [address] [place] [address] Dinora Bourgeois MD [address] [place] [address] Follow-up pituitary tumor and medication refill 08/04/2025 3:40 PM [facility] Orthopaedics [address] [place], [place] [id number] Dany Rossi DO [address] [place] [address] 3 month phone Surgical post op documented as of this encounter Visit Diagnoses Not on filedocumented in this encounter Care Teams [place] Aide Relationship Specialty Start Date End Date Rickey Cross [address] [phone] PCP - General 04/06/10 04/22/25 Maury Mcnamara [address] [place] [phone] PCP - General Internal Medicine 04/23/25 documented as of this encounter
--- OUTSIDE RECORDS SUMMARY | 2025-05-20 04:20 | XMS_ITS | Encounter Summary ---
Author Organization [facility] Address [address] [place] [address] Care Team Providers Care It Administrator Name Role Phone Rickey Cross A Primary Care Provider EpiMaury pepper Deidra Primary Care Provider [phone] Source Comments In the event this information is protected by the Federal Confidentiality of Alcohol and Drug AbusePatient Records regulations: The Federal rules restrict any use of the information to criminally investigate or prosecute any alcohol or drug abuse patient.[facility] Encounter Details Date Type Department Care Team (Late st Contact Info) Description 12/10/2023 Patient Msg Endocrinology [address] [place] [phone] Dinora Bourgeois MD [address] [place] [address] Appointment Request Social History Tobacco [...] N ot on file 09/17/2022 Data from: https://www.neighborhoodatlas.[facility]/. Last address used for calculation [address] 09/17/2022 Sex and Gender Information Value Date Recorded Sex Assigned at Male 02/08/2020 3:11 PM EDT Legal Sex Male 8:08 AM EST Gender Identity Male 02/08/2020 3:11 PM EDT Sexual Orientation Not on file Travel History Travel Start Travel End [place] 05/17/2025 05/18/2025 documented as of this encounter [...] PM EST Appointment Radiology [address] [place] [address] post op xray left knee 06/10/2025 1:00 PM EST Nurse Visit Orthopaedics [address] [place], [place] [id number] [place] [address] [place] [address] Surgical post op 07/21/2025 11:00 AM EST [facility] Endocrinology [address] [place] [address] Dinora Bourgeois MD [address] [place], [place] [phone] Follow-up pituitary tumor and medication refill 08/04/2025 3:40 PM EST [facility] Orthopaedics [address] [place], [place] [id number] Dany Rossi DO [address] [place], [place] [phone] 3 month phone Surgical post op documented as of this encounter Visit Diagnoses Not on filedocumented in this encounter Care Teams It Administrator Relationship Specialty Start Date End Date Rickey Cross [address] [phone] PCP - General 04/06/10 04/22/25 Maury Mcnamara [address] [place] [phone] PCP - General Internal Medicine 04/23/25 documented as of this encounter
--- OUTSIDE RECORDS SUMMARY | 2025-05-20 04:20 | XMS_ITS | Clinical Summary ---
Author Organization [facility] Address [address] [place] [address] Care Team Providers Care Newspaper Photo Editor Name Role Phone Naima Maury Gay Primary Care Provider [phone] Allergies Active Allergy Reactions Criticality Noted Date Comments Rosuvastatin Other: See Comments 11/11/2014 makes me weak Medications sildenafil (VIAGRA) 100 mg tabletIndications:Be nign neoplasm of pituitary gland and craniopharyngeal duct (pouch) (HCC),Prolactinoma (HCC),Hypogonadism male Take 1 tablet by mouth as needed. 30-60 minutes before sexual intercourse. 30 tablet 3 06/22/20 21 Active cabergoline (DOSTINEX) 0.5 mg tabletIndications:Be nign neoplasm of pituitary gland and craniopharyngeal duct (pouch) (HCC),Prolactinoma (HCC),Hypogonadism male,Abnormal results of thyroid function studies Take one tablet 3 days per week. 36 tablet 3 03/18/20 24 Active testosterone (ANDROGEL) 12.5 mg/ 1.25 gram (1 %) transdermal gelIndications:Hypog onadism in male APPLY a total of 4 pumps TO CLEAN, DRY, INTACT SKIN OF SHOULDER AND UPPER ARMS DAILY. 88 g 2 04/23/20 24 Active meloxicam (MOBIC) 15 mg tablet Active acetaminophen (TYLENOL) 500 mg tablet Take 500 mg by mouth every 4 hours as needed. Active metFORMIN (GLUCOPHAGE) 500 mg tablet 03/17/20 25 Active tamsulosin (FLOMAX) 0.4 mg 03/17/20 25 Active ergocalciferol 50,000 unit capsule (VITAMIN D2, DRISDOL) Take 1 capsule by mouth two times a week. 24 capsule 04/27/20 25 026 Active oxyCODONE IR (ROXICODONE) 5 mg immediate release tabletIndications:Po st-op pain Take 1-2 tablets by mouth every 4 hours as needed for pain for up to 7 days. 50 tablet 5 4:47 PM EST 05/18/20 25 Active aspirin, enteric coated (ECOTRIN LOW STRENGTH) 81 mg EC tablet Take 1 tablet by mouth two times a day for 28 days. 56 tablet 5 4:47 PM EST 05/18/20 25 025 Active docusate sodium (COLACE) 100 mg capsule Take 1 capsule by mouth two times a day. 60 capsule 5 4:47 PM EST 05/18/20 25 025 Active methocarbamol (ROBAXIN) 750 mg tablet Take 1 tablet by mouth three times a day for 14 days. 42 tablet 5 4:47 PM EST 05/18/20 25 025 Active acetaminophen (TYLENOL EXTRA STRENGTH) 500 mg tablet Take 2 tablets by mouth every 8 hours as needed for pain. 90 tablet 5 4:47 PM EST 05/18/20 25 025 Active doxycycline hyclate (VIBRAMYCIN) 100 mg capsule Take 1 capsule by mouth two times a day for 7 days. 14 capsule 5 4:47 PM EST 05/18/20 25 025 Active meloxicam (MOBIC) 15 mg tablet Take 1 tablet by mouth once daily for 14 days. 14 tablet 5 4:47 PM EST 05/18/20 025 Active omeprazole (PRILOSEC) 20 mg capsule Take 1 capsule by mouth once daily. 30 capsule 5 4:47 PM EST 05/18/20 25 025 Active ergocalciferol 50,000 unit capsule (VITAMIN D2, DRISDOL) Take 2 capsules by mouth one time a week. 24 capsule 05/18/20 25 026 Active mupirocin (BACTROBAN) 2 % ointmentIndications: Pre-op evaluation two times a day for 5 days. Apply 0.5 inch with cotton swab (Q-tip) to each nostril in the morning and evening for 5 days prior to and including day of surgery. 22 g 04/25/20 25 025 Active Problems Problem Noted Date Diagnosed Date S/P total knee arthroplasty, unspecified lateral ity 05/18/2025 History of prolactinoma 04/25/2025 Assessment & Plan (04/25/2025 1:54 PM EDT): Assessment: Patient has giant prolactinoma diagnosed in 2006. Largest size was 3.5 cm. Currently being treated with cabergoline 3x a week (MW). Follows Endocrinology. Office Visit with Dinora Bourgeois [...] Clinically euthyroid -Check TRAbs and TFTs Prediabetes 04/25/2025 Assessment & Plan (04/25/2025 1:49 PM EDT): Assessment: Reports compliance to metformin. Prescribed by PCP. Denies any new or worsening symptoms. Hemoglobin A1C (%) Date Value 03/24/2025 5.7 History of nicotine use 04/25/2025 Assessment & Plan (04/25/2025 1:52 PM EDT): Assessment: Patient has not been using no patches for the past couple of days, reports he has been cutting down. BMI 36.0-36.9,adult 04/25/2025 Assessment & Plan (04/25/2025 2:08 PM EDT): Assessment: Body mass index is 36.4 kg/m . 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 Encounters Date Type Department Care Team Description 05/18/2025 8:00 AM EST - 05/18/2025 10:55 AM EST Surgery [facility] Operating Room [address] [address] Ric Raygoza DO ROSA ROBOTIC ASSISTED TOTAL KNEE ARTHROPLASTY 05/18/2025 7:44 AM EST Anesthesia Event [facility] Operating Room [address] [address] Jah Coulter DO 05/18/2025 6:11 AM EST - 05/18/2025 5:26 PM EST Hospital Encounter [facility] 5D [address] [address] Ric Raygoza DO Primary osteoarthritis of left knee [M17.12] Discharge Disposition: Home 05/18/2025 Travel 04/27/2025 Patient Msg Orthopaedics [place] [address] [place] [address] Marcello Courtney PA-C Vitamin D 04/27/2025 Orders Only Orthopaedics [place] [address] [place] [address] Marcello Courtney PA-C 04/25/2025 1:40 PM EDT PAT Pre Anesthesia [address] [place] [address] 1, Pacc [place] Pre-op evaluation (Primary Dx); History of prolactinoma; Prediabetes; History of nicotine use; BMI 36.0-36.9,adult 04/25/2025 Travel 04/25/2025 Patient Msg Pre Anesthesia [address] [place] [address] Provider, Ccf Pre Op Instructions 03/30/2025 Patient Msg Pre Anesthesia [address] [place] [address] Ann Valle APRN.[employer]ANER Rescheduled Appointment 03/30/2025 Telephone Orthopaedics [address] [place] [address] Marcello Courtney PA-C Orders 03/30/2025 Orders Only Orthopaedics [address] [address] Ric Raygoza, DO Smoker (Primary Dx); Anemia, unspecified type; Primary osteoarthritis of left knee 03/24/2025 10:40 AM EDT Office Visit Orthopaedics [address] [place] [address] Ric Raygoza, DO Type 2 diabetes mellitus with other specified complication, unspecified whether customer program manager insulin use (HCC) (Primary Dx); Primary osteoarthritis of both knees; Smoker; Anemia, unspecified type; Primary osteoarthritis of left knee 03/24/2025 9:47 AM EDT - 03/24/2025 11:59 PM EDT Hospital Encounter Radiology [address] [place] [address] Bilateral primary osteoarthritis of knee [M17.0] Discharge Disposition: Home 03/24/2025 Patient Msg Orthopaedics [address] [place] [address] Provider, Ccf Welcome to the [facility] 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 Last address used for calculation [address] 04/23/2024 Sex and Gender Information Value Date Recorded Sex Assigned at Male 02/08/2020 3:11 PM EDT Legal Sex Male 8:08 AM EST Gender Identity Male 02/08/2020 3:11 PM EDT Sexual Orientation Not on file Travel History Travel Start Travel End [place] 05/17/2025 05/18/2025 Last Filed Vital Signs Vital Sign Reading [...] Mass Index 36.4 05/18/2025 12:24 PM EST Plan of Treatment Upcoming Encounters Date Type Department Care Team (Latest Contact Info) Description 06/10/2025 12:30 PM EST Appointment Radiology [address] [place] [address] post op xray left knee 06/10/2025 1:00 PM EST Nurse Visit Orthopaedics [address] [place] [address] [place] [address] [place] [address] Surgical post op 07/21/2025 11:00 AM EST [facility] Endocrinology [address] [place] [address] Dinora Bourgeois MD [address] [place] [address] Follow-up pituitary tumor and medication refill 08/04/2025 3:40 PM EST [facility] Orthopaedics [address] [place] [address] Ric Raygoza DO [address] [place] [address] 3 month phone Surgical post op Health Maintenance Due Date Last Done Comments Anxiety Screening 09/30/1985 Depression Screening 09/30/1985 HIV Screening 09/30/1985 Hepatitis C Screening 09/30/1985 DTaP,Tdap,Td Vaccine (1 - Tdap) 09/30/1986 Hepatitis B Vaccine (1 of 3 - 19+ 3-dose series) 09/30/1986 Pneumococcal Vaccine: 50+ (1 of 2 - PCV) 09/30/1986 Lipid Screening 09/30/2002 CT Colonography 09/30/2012 Cologuard (FIT-DNA) 09/30/2012 Colonoscopy 09/30/2012 Colorectal Cancer Screening 09/30/2012 Fecal Occult Blood 09/30/2012 Prostate Cancer Screening Discussion 09/30/2012 Sigmoidoscopy 09/30/2012 Lung Cancer Screening 09/30/2017 Shingrix Vaccine (1 of 2) 09/30/2017 Covid-19 Vaccine (1 - 2024-2 6 season) 2025 Influenza Vaccine (#1) 2025 Diabetes Screening 04/25/2028 04/25/2025, 0 03/24/2025, 10/18/2023, Additional history exists Goals Goal Patient Goal Type Associated Problems Recent Progress Patient-Stated? Author Total Knee Replacement Lather Apprentice Care Plan Total Knee Replacement Lather Apprentice No Brigid Parker Autogenerated Goal Care Plan Autogenerated Problem No Brigid Parker Medical Devices Implanted Type Area Skin Care Therapist Device Identifier Shelf Expiration Date Model / Serial / Lot Component Tibial Size H 0deg Left Cementless Keel Osseoti Persona - [id number] Implanted:Qty: 1 on 05/18/2025 at [facility] Joint - Knee Left: Bone - Knee [employer] 12/07/2034 [id number] / / [id number] Insert Persona 12 Gh Vivacit-E 10mm Articular Sterile Latex Free Knee Left - [id number] Implanted:Qty: 1 on 05/18/2025 at [facility] Joint - Knee Left: Bone - Knee [employer] 10/11/2029 [id number] / / [id number] Psn Fem Cr Pps Cocr Std Sz12 L - [id number] Implanted:Qty: 1 on 05/18/2025 at [facility] Joint - Knee Left: Bone - Knee [employer] 12/21/2034 [id number] / / [id number] Osseoti Cementless Patella Size 35mm - [id number] Implanted:Qty: 1 on 05/18/2025 at [facility] Joint Left: Bone - Knee [employer] 10/02/2029 [id number] / / [id number] Procedures Procedure Name Priority Date/Time Associated Diagnosis Comments GLUCOSE, BLOOD (POC) Routine 05/18/2025 12:22 PM EST INJECTION AA&/STRD OTHER PERIPHERAL NERVE/BRANCH Routine 05/18/2025 11:32 AM EST CO AN ULTRASOUND GUIDANCE Routine 05/18/2025 11:32 AM EST NJX DX/THER SBST INTRLMNR LMBR/SAC W/O IMG GDN Routine 05/18/2025 8:10 AM EST ARTHRP KNE CONDYLE&PLATU MEDIAL&LAT COMPARTMENTS 05/18/2025 7:43 AM EST Primary osteoarthritis of left knee GLUCOSE, BLOOD (POC) Routine 05/18/2025 7:03 AM EST CONFIRM BLOOD TYPE Routine 04/25/2025 2: 14 PM EDT Primary osteoarthritis of left knee TYPE + SCREEN,30 DAY Routine 04/25/2025 2:12 PM EDT Primary osteoarthritis of left knee BASIC METABOLIC PANEL Routine 04/25/2025 2:12 PM EDT Primary osteoarthritis of left knee IRON + TIBC Routine 04/25/2025 2:12 PM EDT Anemia, unspecified type FERRITIN BLD Routine 04/25/2025 2:12 PM EDT Anemia, unspecified type CBC + DIFF Routine 04/25/2025 2:12 PM EDT Primary osteoarthritis of left knee VITAMIN D 25 HYDROXY Routine 04/25/2025 2:12 PM EDT Primary osteoarthritis of left knee NICOTINE/COTININE Routine 04/25/2025 2:1 2 PM EDT Smoker ALBUMIN BLD Routine 04/25/2025 2:12 PM EDT Primary osteoarthritis of left knee ECG COMPLETE 04/25/2025 1:55 PM EDT NICOTINE/COTININE Routine 03/24/2025 11: 48 AM EDT Smoker HEMOGLOBIN A1C Routine 03/24/2025 11:48 AM EDT Type 2 diabetes mellitus with other specified complication, unspecified whether long-term insulin use (HCC) XR LEG FRONTAL HIP TO ANKLE MECHANICAL AXIS Routine 03/24/2025 10:11 AM EDT Bilateral primary osteoarthritis of knee XR KNEE GENERAL 4V AP BOTH/PA BOTH/LAT/MERC BILAT Routine 03/24/2025 10:11 AM EDT Bilateral primary osteoarthritis of knee DEIDRE PATIENT EDUCATION PROGRAM 03/24/2025 from Last 3 Months Results * GLUCOSE, BLOOD (POC) (05/18/2025 12:22 PM EST) Only the most recent of2 resultswithin the time period is included. Glucose, Point of Care 99 74 - 99 mg/dL [facility] Comment: Location:[facility], [facility] [address], Critical access hospital The Accu-Chek Inform II glucose meter has [...] above situations. 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 Reason for Block: primary surgical anesthetic Staffing Anesthesiologist: Jah Coulter DO CRANIOLOGIST: Yemi Gomez APRN.CRANIOLOGIST Performed by: anesthesiologist Preparation Sterility Preparation: hand [...] DO ANESTHESIA ORDERABLES Final R esult * CONFIRM BLOOD TYPE (04/25/2025 2:14 PM EDT) ABO A 04/25/2025 9:47 PM EDT [facility] MAIN BLOOD BANK Rh(D) Positive 04/25/2025 9:47 PM EDT [facility] MAIN [facility]LOOD B[facility] Blood BLOOD SPECIMEN / Unknown Venipuncture / Unknown 04/25/2025 2:14 PM EDT 04/25/2025 2:16 PM EDT Ric Nazarioaughlin BLOOD BANK Final Resul t Performing Organization Address City/[facility] de Phone Number MAIN BLOOD BANK [address] [place] [address], [place] * TYPE AND SCREEN,30 DAY (04/25/2025 2:12 PM EDT) ABO A 04/25/2025 10:08 PM EDT [facility] MAIN BLOOD B[facility] Rh(D) Positive 04/25/2025 10:08 PM EDT [facility]LOOD [facility] Antibody Screen Negative 04/25/2025 10:08 PM EDT [facility] MAIN BLOOD B[facility] Blood BLOOD SPECIMEN / Unknown Venipuncture / Unknown 04/25/2025 2:12 PM EDT 04/25/2025 2:16 PM EDT Ric Nazarioaughlin BLOOD BANK Final Resul t Performing Organization Address [facility] Phone Number MAIN BLOOD BANK [address] [place] [address], [place] * (ABNORMAL) VITAMIN D 25 HYDROXY (04/25/2025 2:12 PM EDT) Vitamin D 25 Hydroxy 19.4(L) 31.0 - 80.0 ng/mL 04/26/2025 1:23 PM EDT [facility] MAIN LAB Comment: Classification of 25 [place] Vitamin D status: Deficiency/Insufficiency: < or = 30 ng/ml. Sufficiency/Optimal Levels: 31-80 ng/mL Toxicity: > 100 ng/mL. Test performed by chemiluminescent immunoassay. Blood BLOOD SPECIMEN / Unknown Venipuncture / Unknown 04/25/2025 2:12 PM EDT 04/25/2025 2:16 PM EDT Narrative [facility] - 04/26/2025 1:23 PM EDT The reference range interval was based on an analysis of samples from healthy adults and may not pertain to children from 0-18 years old. Ric Nazarioaughlin LABORATORY Final Resul t Performing Organization Address [facility] Co de Phone Number [facility] [address] [place] [id number], [place] * (ABNORMAL) NICOTINE/COTININE (04/25/2025 2:12 PM EDT) Only the most recent of2 resultswithin the time period is included. Nicotine <2 <2 ng/mL 04/27/2025 2:18 PM EDT [facility] Cotinine 48(H) <2 ng/mL 04/27/2025 2:18 PM EDT [facility] Comment: Active tobacco product user: Nicotine concentration: 30 - 50 ng/mL Cotinine concentration: 200 - 800 ng/mL Passive exposure to tobacco: Nicotine concentration: < 2 ng/mL Cotinine concentration: < 8 ng/mL Unexposed non-tobacco user or abstinent user for > 2 weeks: Nicotine concentration: < 2 ng/mL Cotinine concentration: < 2 ng/mL This test was developed, and its performance characteristics determined by the [facility] Department of Pathology and Laboratory Medicine. It has not been cleared or approved by the FDA. The [facility] Department of Pathology and Laboratory Medicine is regulated under CLIA as qualified to perform high- complexity testing. This test is used for clinical purposes. It should not be regarded as investigational or for research. Blood BLOOD SPECIMEN / Unknown Venipuncture / Unknown 04/25/2025 2:12 PM EDT 04/25/2025 2:16 PM EDT Ric Maximilian Raygoza LABORATORY Final Resul t Performing Organization Address City/[facility]/ZIP Co de Phone Number [facility] [address] [place] [phone], [place] * IRON AND TIBC (04/25/2025 2:12 PM EDT) Iron 51 41 - 186 ug/dL 04/26/2025 1:15 AM EDT [facility] TIBC 268 232 - 386 ug/dL 04/26/2025 1:15 AM EDT [facility] Transferrin Saturation 19.0 15.0 - 57.0 % 04/26/2025 1:15 AM EDT [facility] Blood BLOOD SPECIMEN / Unknown Venipuncture / Unknown 04/25/2025 2:12 PM EDT 04/25/2025 2:16 PM EDT Ric Raygoza DO LABORATORY Final Resul t Performing Organization Address City/[facility] Co de Phone Number [facility] [address] [place] [address], [place] * FERRITIN (04/25/2025 2:12 PM EDT) Ferritin 358.0 30.3 - 565.7 ng/mL 04/26/2025 1:24 AM EDT [facility] Blood BLOOD SPECIMEN / Unknown Venipuncture / Unknown 04/25/2025 2:12 PM EDT 04/25/2025 2:16 PM EDT Ric Raygoza DO LABORATORY Final Resul t Performing Organization Address [facility] de Phone Number [facility] [address] [place] [address], [place] * (ABNORMAL) COMPLETE BLOOD COUNT AND DIFFERENTIAL (04/25/2025 2:12 PM EDT) WBC 9.94 3.70 - 11.00 k/uL 04/25/2025 2:18 PM EDT [facility] RBC 4.78 4.20 - 6.00 m/uL 04/25/2025 2:18 PM EDT [facility] Hemoglobin 15.0 13.0 - 17.0 g/dL 04/25/2025 2:18 PM EDT [facility] Hematocrit 42.3 39.0 - 51.0 % 04/25/2025 2:18 PM EDT [facility] MCV 88.5 80.0 - 100.0 fL 04/25/2025 2:18 PM EDT [facility] MCH 31.4 26.0 - 34.0 pg 04/25/2025 2:18 PM EDT [facility] MCHC 35.5 30.5 - 36.0 g/dL 04/25/2025 2:18 PM EDT [facility] RDW-CV 14.2 11.5 - 15.0 % 04/25/2025 2:18 PM EDT [facility] Platelet Count 238 150 - 400 k/uL 04/25/2025 2:18 PM EDT [facility] MPV 9.7 9.0 - 12.7 fL 04/25/2025 2:18 PM EDT [facility] Neutrophils % 57.1 % 04/25/2025 2:18 PM EDT [facility] Abs Neut 5.68 1.45 - 7.50 k/uL 04/25/2025 2:18 PM EDT [facility] Lymphocytes % 26.7 % 04/25/2025 2:18 PM EDT [facility] Abs Lymph 2.65 1.00 - 4.00 k/uL 04/25/2025 2:18 PM EDT [facility] Monocytes % 9.7 % 04/25/2025 2:18 PM EDT [facility] [place] 0.96(H) <0.87 k/uL 04/25/2025 2:18 PM EDT [facility] Eosinophils % 4.6 % 04/25/2025 2:18 PM EDT [facility] Abs Eosin 0.46(H) <0.46 k/uL 04/25/2025 2:18 PM EDT [facility] Basophils % 0.9 % 04/25/2025 2:18 PM EDT [facility] Abs Baso 0.09 <0.11 k/uL 04/25/2025 2:18 PM EDT [facility] Immature Granulocytes % 1.0 % 04/25/2025 2:18 PM EDT [facility] Abs Immature Gran 0.10(H) <0.10 k/uL 025 2:18 PM EDT [facility] NRBC 0.0 /100 WBC 04/25/2025 2:18 PM EDT [facility] Absolute nRBC <0.01 <0.01 k/uL 04/25/2025 2:18 PM EDT [facility] Diff Type Auto 04/25/2025 2:18 PM EDT [facility] Blood BLOOD SPECIMEN / Unknown Venipuncture / Unknown 04/25/2025 2:12 PM EDT 04/25/2025 2:16 PM EDT us Ric Raygoza DO LABORATORY Final Resul t [facility] [address] [place] [address], * (ABNORMAL) BASIC METABOLIC PANEL (04/25/2025 2:12 PM EDT) [facility] Glucose 90 74 - 99 mg/dL 04/25/2025 3:03 PM EDT [facility] Comment: The [place] Diabetes Association (ADA) provides guidance for cutoff [...] Standards of Medical Care in Diabetes 2016, [place] Diabetes Association. Diabetes Care. 2016.39(Suppl 1). BUN 15 9 - 24 mg/dL 04/25/2025 3:03 PM EDT [facility] Creatinine 0.99 0.73 - 1.22 mg/dL 04/25/2025 3:03 PM EDT [facility] Sodium 134(L) 136 - 144 mmol/L 04/25/2025 3:03 PM EDT [facility] Potassium 3.9 3.7 - 5.1 mmol/L 04/25/2025 3:03 PM EDT [facility] Chloride 99 98 - 107 mmol/L 04/25/2025 3:03 PM EDT [facility] CO2 23 22 - 30 mmol/L 04/25/2025 3:03 PM EDT [facility] Anion Gap 12 8 - 15 mmol/L 04/25/2025 3:03 PM EDT [facility] Calcium, Total 9.3 8.5 - 10.2 mg/dL 04/25/2025 3:03 PM EDT [facility] Estimated Glomerular Filtration Rate 89 >=60 mL/min/1.7 3m 04/25/2025 3:03 PM EDT [facility] Comment:Estimated Glomerular Filtration Rate (eGFR) is calculated [...] PM EDT 04/25/2025 2:16 PM EDT us Ric Raygoza DO LABORATORY Final Resul t [facility] [address] [place] [address], * ALBUMIN (04/25/2025 2:12 PM EDT) Albumin 4.1 3.9 - 4.9 g/dL 04/25/2025 3:03 PM EDT [facility] Blood BLOOD SPECIMEN / Unknown Venipuncture / Unknown 04/25/2025 2:12 PM EDT 04/25/2025 2:16 PM EDT Ric Raygoza DO LABORATORY Final Resul t [facility] [address] [place] [address], [place] * ECG COMPLETE (04/25/2025 1:55 PM EDT) Ventricular Rate 51 BPM [facility] Atrial Rate 51 BPM [facility] P-R Interval 160 ms [facility] QRS Duration 82 ms [facility] QT Interval 452 ms [facility] QTC Calculation (Bazett) 416 ms [facility] Calculated P [place] 33 degrees [facility] Calculated R [place] 45 degrees [facility] Calculated T [place] 62 degrees [facility] 04/25/2025 1:55 PM EDT Impressions [facility] - 04/27/2025 12:02 PM EDT SINUS BRADYCARDIA OTHERWISE NORMAL ECG Confirmed by MD JACOBS QARAB ([id number]) on 04/27/2025 12:02:17 PM Narrative [facility] - 04/27/2025 12:02 PM EDT NAME : JOHN ZARATE PID : [id number] : 1965 Gender : Male Race : Unknown ORD : Procedure Date : Apr 25 2025 13:55:00 Edit Date : Apr 27 2025 12:02:25 Diagnosis: SINUS BRADYCARDIA OTHERWISE NORMAL ECG Confirmed by MD JACOBS QARAB ([id number]) on 04/27/2025 12:02:17 PM Test Reason : Location : 636 : TANY Overread By : MD JACOBS QARAB Edited By : MD JACOBS QARAB Referred By : RIC RAYGOZA Acquired by : jy, us [facility] Provider EKG Final Result Performing Organization Address City/[facility]/ZIP Co de Phone Number [facility] [address] [place] [address] * (ABNORMAL) HEMOGLOBIN A1C (03/24/2025 11:48 AM EDT) Hemoglobin A1C 5.7(H) 4.3 - 5.6 % 03/24/2025 9:13 PM EDT [facility] Comment:[place] Diabetes As sociation guidelines indicate that patients with HgbA1c in the range 5.7-6.4% are at increased risk for development of diabetes, and intervention by lifestyle modification may be beneficial. HgbA1c greater or equal to 6.5% is considered diagnostic of diabetes. Estimated Average Glucose 117 mg/dL 03/24/2025 9:13 PM EDT [facility] Comment:eAG: (Estimated aver age glucose) is a calculated value from HgbA1c and is school admissions representative of the average blood glucose level in the last 2-3 month period. Blood BLOOD SPECIMEN / Unknown Venipuncture / Unknown 03/24/2025 11:48 AM EDT 03/24/2025 11:49 AM EDT Ric Raygoza DO LABORATORY Final Resul t [facility] [address] [address], [place] * XR KNEE GENERAL 4V AP BOTH/PA BOTH/LAT/MERC BILATERAL (03/24/2025 10:11 AM EDT) Anatomical Region Laterality Modality Knee Other 03/24/2025 10:1 1 AM EDT Impressions 03/24/2025 11:32 AM EDT IMPRESSION: RIGHT: MILD LATERAL COMPARTMENT NARROWING HAS DEVELOPED. LEFT: LATERAL COMPARTMENT DEGENERATIVE CHANGES HAVE PROGRESSED. Fur Plucker: KARINA Transcribe Date/Time: Mar 24 2025 11:25A Dictated by : SOPHY CORNELIUS MD This examination was interpreted and the report reviewed and electronically signed by: SOPHY CORNELIUS MD on Mar 24 2025 11:29AM [...] KNEE PAIN, HX OF MENISCUS REPAIR (accession [id number]), LEG LENGTH STUDY (accession [id number]) TECHNIQUE: XR KNEE 4V AP/PA/LAT/MERCH CHELLE, XR [...] osteophytes with interval progression. Procedure Note Provider, [facility] - 03/24/2025 * * *Final Report* * * DATE OF EXAM: Mar 24 2025 10:11AM [id number] - XR KNEE 4V AP/PA/LAT/MERCH CHELLE / PROCEDURE REASON: Bilateral primary osteoarthritis of knee * * * * Physician Interpretation * * * * HISTORY: Bilateral primary osteoarthritis of knee TECHNOLOGIST PROVIDED HISTORY (if applicable): PATIENT STATES LEFT KNEE PAIN, HX OF MENISCUS REPAIR (accession [id number]), LEG LENGTH STUDY (accession [id number]) TECHNIQUE: XR KNEE 4V AP/PA/LAT/MERCH CHELLE, XR [...] LEFT: LATERAL COMPARTMENT DEGENERATIVE CHANGES HAVE PROGRESSED. Fur Plucker: KARINA Transcribe Date/Time: Mar 24 2025 11:25A Dictated by : SOPHY CORNELIUS MD This examination was interpreted and the report reviewed and electronically signed by: SOPHY CORNELIUS MD on Mar 24 2025 11:29AM EST Ric PEPPER Final Resul t * XR LEG FRONTAL HIP TO ANKLE MECHANICAL AXIS (03/24/2025 10:11 AM EDT) Anatomical Region Laterality Modality Leg Other 03/24/2025 10:1 1 AM EDT Impressions 03/24/2025 11:32 AM EDT IMPRESSION: RIGHT: MILD LATERAL COMPARTMENT NARROWING HAS DEVELOPED. LEFT: LATERAL COMPARTMENT DEGENERATIVE CHANGES HAVE PROGRESSED. Fur Plucker: [facility] Transcribe Date/Time: Mar 24 2025 11:25A Dictated by : SOPHY CORNELIUS MD This examination was interpreted and the report reviewed and electronically signed by: SOPHY CORNELIUS MD on Mar 24 2025 11:29AM EST Narrative 03/24/2025 11:32 AM EDT * * *Final Report* * * DATE OF EXAM: Mar 24 2025 10:11AM [id number] - XR LEG FRONTL HIP-[facility]L [facility] AXIS / PROCEDURE REASON: Bilateral primary osteoarthritis of knee * * * * Physician Interpretation * * * * HISTORY: Bilateral primary osteoarthritis of knee TECHNOLOGIST PROVIDED HISTORY (if applicable): PATIENT STATES LEFT KNEE PAIN, HX OF MENISCUS REPAIR (accession [id number]), LEG LENGTH STUDY (accession [id number]) TECHNIQUE: XR KNEE 4V AP/PA/LAT/MERCH CHELLE, XR [...] osteophytes with interval progression. Procedure Note Provider, [facility] - 03/24/2025 * * *Final Report* * * DATE OF EXAM: Mar 24 2025 10:11AM [id number] - [facility] / PROCEDURE REASON: Bilateral primary osteoarthritis of knee * * * * Physician Interpretation * * * * HISTORY: Bilateral primary osteoarthritis of knee TECHNOLOGIST PROVIDED HISTORY (if applicable): PATIENT STATES LEFT KNEE PAIN, HX OF MENISCUS REPAIR (accession [id number]), LEG LENGTH STUDY (accession [id number]) TECHNIQUE: XR KNEE 4V AP/PA/LAT/MERCH CHELLE, XR [...] LEFT: LATERAL COMPARTMENT DEGENERATIVE CHANGES HAVE PROGRESSED. Fur Plucker: KARINA Transcribe Date/Time: Mar 24 2025 11:25A Dictated by : SOPHY CORNELIUS MD This examination was interpreted and the report reviewed and electronically signed by: SOPHY CORNELIUS MD on Mar 24 2025 11:29AM EST Ric Raygoza DO RAD-PAMA Final Resul t * DEIDRE PATIENT EDUCATION PROGRAM (03/24/2025) 03/24/2025 Narrative DEIDRE - 04/24/2025 Provider IDALMIS your patient JOHN ZARATE has not started their Deidre program, time has . 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
--- OUTSIDE RECORDS SUMMARY | 2025-05-20 04:20 | XMS_ITS | Encounter Summary ---
Author Organization [facility] Address [address] [place] [address] Care Team Providers Care Auto Carrier Driver Name Role Phone Tay, Rickey Gay Primary Care Provider [phone] Maury Mcnamara Primary Care Provider [phone] Source Comments In the event this information is protected by the Federal Confidentiality of Alcohol and Drug AbusePatient Records regulations: The Federal rules restrict any use of the information to criminally investigate or prosecute any alcohol or drug abuse patient.[facility] Encounter Details Date Type Department Care Team (Late st Contact Info) Description 10/18/2020 Patient Msg Endocrinology [address] [place] [address] Provider, Ccf Medication Request Social History Tobacco Use Types Packs/Day [...] N ot on file 06/19/2020 Data from: https://www.neighborhoodatlas.medicine.[facility].edu/. Last address used for calculation Not [...] PM EST Appointment Radiology [address] [place] [address] post op xray left knee 06/10/2025 1:00 PM EST Nurse Visit Orthopaedics [address] [place] [address] [place] [address] [place] [address] Surgical post op 07/21/2025 11:00 AM EST [facility] Endocrinology [address] [place] [address] Dinora Bourgeois MD [address] [place] [address] Follow-up pituitary tumor and medication refill 08/04/2025 3:40 PM EST [facility] Orthopaedics [address] [place] [address] Dany Rossi DO [address] [place], [place] [id number] 3 month phone Surgical post op documented as of this encounter Visit Diagnoses Not on filedocumented in this encounter Care Teams Auto Carrier Driver Relationship Specialty Start Date End Date Rickey Cross [address] [phone] PCP - General 04/06/10 04/22/25 Maury Mcnamara [address] [place] [phone] PCP - General Internal Medicine 04/23/25 documented as of this encounter
--- OUTSIDE RECORDS SUMMARY | 2025-05-20 04:20 | XMS_ITS | Encounter Summary ---
Author Organization [facility] Address [address] [place] [address] Care Team Providers Care Motor Vehicle Field Representative Name Role Phone Rickey Cross A Primary Care Provider [phone] EpiMaury pepper Deidra Primary Care Provider [phone] Source Comments In the event this information is protected by the Federal Confidentiality of Alcohol and Drug AbusePatient Records regulations: The Federal rules restrict any use of the information to criminally investigate or prosecute any alcohol or drug abuse patient.[facility] Encounter Details Date Type Department Care Team (Late st Contact Info) Description 05/31/2016 Patient Msg Endocrinology [address] [phone] Izzy Briggs MD [address] [place] [address] Labs Social History Tobacco Use Types Packs/Day Years [...] file Travel History Travel Start Travel End [place] 05/17/2025 05/18/2025 documented as of this encounter [...] 12:35 PM PANCHOT Michelle Salinas (Rn)(Hist) documented in this encounter Plan of Treatment Upcoming Encounters Date Type Department Care Team (Latest Contact Info) Description 06/10/2025 12:30 PM EST Appointment Radiology [address] [place] [address] post op xray left knee 06/10/2025 1:00 PM EST Nurse Visit Orthopaedics [address] [place] [address] [place] [address] [place] [address] Surgical post op 07/21/2025 11:00 AM EST [facility] Endocrinology [address] [place] [address] Dinora Bourgeois MD [address] [place] [address] Follow-up pituitary tumor and medication refill 08/04/2025 3:40 PM [facility] Orthopaedics [address] [place], [place] [phone] Dany Rossi DO [address] [place], [place] [phone] 3 month phone Surgical post op documented as of this encounter Visit Diagnoses Not on filedocumented in this encounter Care Teams Motor Vehicle Field Representative Relationship Specialty Start Date End Date Rickey Cross [address] [phone] PCP - General 04/06/10 04/22/25 Maury Mcnamara [address] [place] [phone] PCP - General Internal Medicine 04/23/25 documented as of this encounter
--- OUTSIDE RECORDS SUMMARY | 2025-05-20 04:20 | XMS_ITS | Encounter Summary ---
Author Organization [facility] Address [address] [place] [address] Care Team Providers Care Airplane Patroller Name Role Phone Rickey Cross A Primary Care Provider [phone] EpiMaury pepper Deidra Primary Care Provider [phone] Source Comments In the event this information is protected by the Federal Confidentiality of Alcohol and Drug AbusePatient Records regulations: The Federal rules restrict any use of the information to criminally investigate or prosecute any alcohol or drug abuse patient.[facility] Encounter Details Date Type Department Care Team (Late st Contact Info) Description 02/05/2020 Get Medical Advice Endocrinology [address] [phone] Izzy Briggs MD [address] [place] [address] RE: Medication Question (Not Renewal) Social History Tobacco Use Types Packs/Day Years [...] file Travel History Travel Start Travel End [place] 05/17/2025 05/18/2025 documented as of this encounter [...] PM EST Appointment Radiology [address] [place] [address] post op xray left knee 06/10/2025 1:00 PM EST Nurse Visit Orthopaedics [address] [place] [address] [place] [address] [place] [address] Surgical post op 07/21/2025 11:00 AM EST [facility] Endocrinology [address] [place] [address] Dinora Bourgeois MD [address] [place] [address] Follow-up pituitary tumor and medication refill 08/04/2025 3:40 PM [facility] Orthopaedics [address] [place], [place] [phone] Dany Rossi DO [address] [place], [place] [phone] 3 month phone Surgical post op documented as of this encounter Visit Diagnoses Not on filedocumented in this encounter Care Teams Airplane Patroller Relationship Specialty Start Date End Date Rickey Cross [address] [phone] PCP - General 04/06/10 04/22/25 Maury Mcnamara [address] [place] [phone] PCP - General Internal Medicine 04/23/25 documented as of this encounter
--- OUTSIDE RECORDS SUMMARY | 2025-05-20 04:20 | XMS_ITS | Encounter Summary ---
Author Organization [facility] Address [address] [place] [address] Care Team Providers Care Midlevel Provider Name Role Phone Rickey Cross A Primary Care Provider [phone] EpiMaury pepper Deidra Primary Care Provider [phone] Source Comments In the event this information is protected by the Federal Confidentiality of Alcohol and Drug AbusePatient Records regulations: The Federal rules restrict any use of the information to criminally investigate or prosecute any alcohol or drug abuse patient.[facility] Encounter Details Date Type Department Care Team (Late st Contact Info) Description 12/10/2023 Patient Msg Endocrinology [address] [place] [phone] Dinora Bourgeois MD [address] [place] [address] Appointment Request Social History Tobacco [...] N ot on file 09/17/2022 Data from: https://www.neighborhoodatlas.[facility]/. Last address used for calculation [address] 09/17/2022 Sex and Gender Information Value Date Recorded Sex Assigned at Male 02/08/2020 3:11 PM EDT Legal Sex Male 8:08 AM EST Gender Identity Male 02/08/2020 3:11 PM EDT Sexual Orientation Not on file Travel History Travel Start Travel End [place] 05/17/2025 05/18/2025 documented as of this encounter [...] PM EST Appointment Radiology [address] [place] [address] post op xray left knee 06/10/2025 1:00 PM EST Nurse Visit Orthopaedics [address] [place], [place] [id number] [place] [address] [place] [address] Surgical post op 07/21/2025 11:00 AM EST [facility] Endocrinology [address] [place] [address] Dinora Bourgeois MD [address] [place], [place] [phone] Follow-up pituitary tumor and medication refill 08/04/2025 3:40 PM EST [facility] Orthopaedics [address] [place], [place] [phone] Dany Rossi DO [address] [place], [place] [phone] 3 month phone Surgical post op documented as of this encounter Visit Diagnoses Not on filedocumented in this encounter Care Teams Midlevel Provider Relationship Specialty Start Date End Date Rickey Cross [address] [phone] PCP - General 04/06/10 04/22/25 Maury Mcnamara [address] [place] [phone] PCP - General Internal Medicine 04/23/25 documented as of this encounter
--- OUTSIDE RECORDS SUMMARY | 2025-05-20 04:20 | XMS_ITS | Encounter Summary ---
Author Organization [facility] Address [address] [place] [address] Care Team Providers Care Ground Mixer Name Role Phone Rickey Cross A Primary Care Provider [phone] EpiMaury pepper Deidra Primary Care Provider [phone] Source Comments In the event this information is protected by the Federal Confidentiality of Alcohol and Drug AbusePatient Records regulations: The Federal rules restrict any use of the information to criminally investigate or prosecute any alcohol or drug abuse patient.[facility] Encounter Details Date Type Department Care Team (Late st Contact Info) Description 03/13/2020 Get Medical Advice Endocrinology [address] [place] [phone] Izzy Briggs MD [address] [place] [address] RE: Upcoming Appointment Question Social History Tobacco Use Types Packs/Day Years [...] file Travel History Travel Start Travel End [place] 05/17/2025 05/18/2025 documented as of this encounter [...] PM EST Appointment Radiology [address] [place] [address] post op xray left knee 06/10/2025 1:00 PM EST Nurse Visit Orthopaedics [address] [place] [address] [place] [address] [place] [address] Surgical post op 07/21/2025 11:00 AM EST [facility] Endocrinology [address] [place] [address] Dinora Bourgeois MD [address] [place] [address] Follow-up pituitary tumor and medication refill 08/04/2025 3:40 PM [facility] Orthopaedics [address] [place] [address] Dany Rossi DO [address] [place], [place] [phone] 3 month phone Surgical post op documented as of this encounter Visit Diagnoses Not on filedocumented in this encounter Care Teams Ground Mixer Relationship Specialty Start Date End Date Rickey Cross [address] [phone] PCP - General 04/06/10 04/22/25 Maury Mcnamara [address] [place] [phone] PCP - General Internal Medicine 04/23/25 documented as of this encounter
--- OUTSIDE RECORDS SUMMARY | 2025-05-20 04:20 | XMS_ITS | Clinical Summary ---
Author Organization [facility] Address [address] [place] [address] Care Team Providers Care Global Clinical Leader Name Role Phone Rickey Cross MD Primary Care Provider + Allergies No known active allergies Medications cabergoline (DOSTINEX) 0.5 MG tablet Take 0.5 mg by mouth 2 (Two) Times a Week. Active testosterone (ANDROGEL) 25 MG/2.5GM (1%) gel gel Place 25 mg on the skin as directed by provider Daily. Active ibuprofen (ADVIL,MOTRIN) 200 MG tablet Take 400 mg by mouth Every 6 (Six) Hours As Needed for Mild Pain . Active oxyCODONE-aceta minophen (PERCOCET) 5-325 MG per tablet Take 1 tablet by mouth Every 6 (Six) Hours As Needed for pain 20 tablet 11/05/2018 9:35 AM EDT 11/05/2018 Active Active Problems Problem Noted Date Diagnosed Date Recurrent umbilical hernia 11/04/2018 Social History Tobacco Use Types Packs/Day Years Used Date Smoking Tobacco: Every Day Cigarettes 1 30 Smokeless Tobacco: Never Tobacco Cessation:Ready to Q uit: No; Counseling Given: Yes Alcohol Use Standard Drinks/Week Comments No 0 (1 standard drink = 0.6 oz pur e alcohol) AUDIT-C Answer Date Recorded Frequency of Alcohol Consumption Never 11/04/2018 Average Number of Drinks Not on file 019 Frequency of Binge Drinking Not on file 10/13 Abuse Screen Answer Date Recorded Unsafe at Home or Work/School Not on file Feels Threatened by Someone? Not on file 06/2023 Does Anyone Keep You from Co ntacting Others or Doint Things Outside the Home? Not on file 04/24/2023 Physical Sign of Abuse Present Not on file 1 Housing Stability Answer Date Recorded Current Living Arrangements Not on file 04/13 Potentially Unsafe Housing Conditions Not on pedro pablo e 04/24/2023 Family and Community Support Answer Johnathan e Recorded Help with Day-to-Day Activities Not on file 04/24/2023 Lonely or Isolated Not on file 04/24/2023 Employment Answer Date Recorded Do you want help finding or keeping work or a luis enrique b? Not on file 04/24/2023 Disabilities Answer Date Recorded Concentrating, Remembering, or Making Decisions Difficulty Not on file 04/24/2023 Doing Errands Independently Difficulty Not on fi le 04/24/2023 Education Answer Date Recorded Help with school or training? Not on file Preferred Language Not on file 04/24/2023 Sex and Gender Information Value Date Recorded Sex Assigned at Not on file Legal Sex Male 1:44 PM EST Gender Identity Not on file Sexual Orientation Not on file Last Filed Vital Signs Vital Sign Reading Time Taken Comments Blood Pressure 116/68 11/05/2018 9:51 AM EDT Pulse 72 11/05/2018 9:51 AM EDT Temperature 36.6 C (97.8 F) 11/05/2018 9:51 AM EDT Respiratory Rate 16 11/05/2018 9:51 AM EDT Oxygen Saturation 91% 11/05/2018 9:51 AM EDT Inhaled Oxygen Concentration - - Weight 136 kg (300 lb) 01/23/2019 8:10 AM EDT Height 193 cm (6' 3.98 ) 01/23/2019 8:10 AM EDT Body Mass Index 36.53 01/23/2019 8:10 AM EDT Plan of Treatment Health Maintenance Due Date Last Done Comments ANNUAL PHYSICAL 1965 HEPATITIS C SCREENING 1965 TDAP/TD VACCINES (1 - Tdap) 09/30/1986 COLOGUARD 09/30/2012 COLON CANCER SCREENING 5 YEAR SIGMOIDOSCOPY 09/30/2012 COLONOSCOPY 09/30/2012 COLORECTAL CANCER SCREENING 09/30/2012 CT COLONOGRAPHY 09/30/2012 FECAL OCCULT BLOOD TEST 09/30/2012 FIT Testing (1 year) 09/30/2012 Pneumococcal Vaccine 50+ (1 of 1 - PCV) 09/30/2017 ZOSTER VACCINE (1 of 2) 09/30/2017 INFLUENZA VACCINE 02/11/2025 Medical Devices Implanted Type Area Cattle Brander Device Identifier Shelf Expiration Date Model / Serial / Lot Mesh Ventralight St Cir 4.5in - [id number] Implanted:Qty: 1 on 11/04/2018 by Rashid Thompson MD at [facility] Implant N/A: Umbilical DAVOL ([employer]) [id number] 12/09/2019 [id number] / / [id number] Insurance [facility] [employer] Member Subscriber Plan / Payer (Ef fective 2016-Present) Name:Juan Orosco Relation to Subscriber:Self Name:Juan Orosco Payer ID:[id number] (NAIC) Group ID:[id number] Type:Not on file Address: [facility] [id number] [place] [address] [phone] Advance Directives * CPR (Attempt to Resuscitate) (Latest Code Status on File) Date Activated Date Inactivated Comments 11/04/2018 2:32 PM 11/05/2018 12:40 PM Question Answer Comments Code Status (Patient has no pulse and is not breathing): CPR (Attempt to Resuscitate) Medical Interventions (Patie nt has pulse or is breathing): Full Level Of Support Discussed With: Patient Care Teams Global Clinical Leader Relationship Specialty Start Date End Date Rickey Cross MD PCP - General Family Medicine 11/04/18
--- OUTSIDE RECORDS SUMMARY | 2025-05-20 04:20 | XMS_ITS | Encounter Summary ---
Author Organization [facility] Address [address] [place] [address] Care Team Providers Care Gear Straightener Name Role Phone Rickey Cross A Primary Care Provider [phone] EpiMaury pepper Deidra Primary Care Provider [phone] Source Comments In the event this information is protected by the Federal Confidentiality of Alcohol and Drug AbusePatient Records regulations: The Federal rules restrict any use of the information to criminally investigate or prosecute any alcohol or drug abuse patient.[facility] Encounter Details Date Type Department Care Team (Late st Contact Info) Description 05/05/2022 Patient Msg Endocrinology [address] [place] [phone] Dinora Bourgeois MD [address] [place] [address] Appointment Request Social History Tobacco [...] N ot on file 06/19/2020 Data from: https://www.neighborhoodatlas.medicine.[facility]/. Last address used for calculation Not on file 06/19/2020 Sex and Gender Information Value Date Recorded Sex Assigned at Male 02/08/2020 3:11 PM EDT Legal Sex Male 8:08 AM EST Gender Identity Male 02/08/2020 3:11 PM EDT Sexual Orientation Not on file Travel History Travel Start Travel End [place] 05/17/2025 05/18/2025 documented as of this encounter [...] PM EST Appointment Radiology [address] [place] [address] post op xray left knee 06/10/2025 1:00 PM EST Nurse Visit Orthopaedics [address] [place] [address] [place] [address] [place] [address] Surgical post op 07/21/2025 11:00 AM EST [facility] Endocrinology [address] [place] [address] Dinora Bourgeois MD [address] [place], [place] [phone] Follow-up pituitary tumor and medication refill 08/04/2025 3:40 PM EST [facility] Orthopaedics [address] [place], [place] [address] Dany Rossi DO [address] [place], [place] [phone] 3 month phone Surgical post op documented as of this encounter Visit Diagnoses Not on filedocumented in this encounter Care Teams Gear Straightener Relationship Specialty Start Date End Date Rickey Cross [address] [phone] PCP - General 04/06/10 04/22/25 Maury Mcnamara [address] [place] [phone] PCP - General Internal Medicine 04/23/25 documented as of this encounter
--- OUTSIDE RECORDS SUMMARY | 2025-05-20 04:20 | XMS_ITS | Encounter Summary ---
Author Organization [facility] Address [address] [place] [address] Care Team Providers Care Exercise Manager Name Role Phone Rickey Cross A Primary Care Provider [phone] EpiMaury pepper Deidra Primary Care Provider [phone] Source Comments In the event this information is protected by the Federal Confidentiality of Alcohol and Drug AbusePatient Records regulations: The Federal rules restrict any use of the information to criminally investigate or prosecute any alcohol or drug abuse patient.[facility] Encounter Details Date Type Department Care Team (Late st Contact Info) Description 01/23/2024 Patient Msg Endocrinology [address] [place] [address] [phone] Dinora Bourgeois MD [address] [place] [address] Appointment Request Social History Tobacco [...] N ot on file 09/17/2022 Data from: https://www.neighborhoodatlas.[facility]/. Last address used for calculation [address] 09/17/2022 Sex and Gender Information Value Date Recorded Sex Assigned at Male 02/08/2020 3:11 PM EDT Legal Sex Male 8:08 AM EST Gender Identity Male 02/08/2020 3:11 PM EDT Sexual Orientation Not on file Travel History Travel Start Travel End [place] 05/17/2025 05/18/2025 documented as of this encounter [...] PM EST Appointment Radiology [address] [place] [address] post op xray left knee 06/10/2025 1:00 PM EST Nurse Visit Orthopaedics [address] [place], [place] [phone] [place] [address] [place] [address] Surgical post op 07/21/2025 11:00 AM EST [facility] Endocrinology [address] [place] [address] Dinora Bourgeois MD [address] [place], [place] [phone] Follow-up pituitary tumor and medication refill 08/04/2025 3:40 PM EST [facility] Orthopaedics [address] [place], [place] [phone] Dany Rossi DO [address] [place], [place] [phone] 3 month phone Surgical post op documented as of this encounter Visit Diagnoses Not on filedocumented in this encounter Care Teams Exercise Manager Relationship Specialty Start Date End Date Rickey Cross [address] [phone] PCP - General 04/06/10 04/22/25 Maury Mcnamara [address] [place] [phone] PCP - General Internal Medicine 04/23/25 documented as of this encounter
--- OUTSIDE RECORDS SUMMARY | 2025-05-20 04:20 | XMS_ITS | Encounter Summary ---
Author Organization [facility] Address [address] [place] [id number] Care Team Providers Care Snuff Grinder Name Role Phone Rickey Cross A Primary Care Provider [phone] EpiMaury pepper Deidra Primary Care Provider Source Comments In the event this information is protected by the Federal Confidentiality of Alcohol and Drug AbusePatient Records regulations: The Federal rules restrict any use of the information to criminally investigate or prosecute any alcohol or drug abuse patient.[facility] Encounter Details Date Type Department Care Team (Late st Contact Info) Description 01/01/2024 Patient [facility] [address] [address] Jahaira Robbins RPh At your next appointment, choose [facility]. Social History Tobacco Use Types Packs/Day Years Used Date Smoking Tobacco: Every Day Cigarettes Smokeless Tobacco: Never Alcohol Use Standard Drinks/Week Comments No 0 (1 standard drink = 0.6 oz pur e alcohol) Area Deprivation Index Answer Date Chicho rded National Score (1-100), lower number is lower ri sk 64 09/17/2022 State Score (1-10), lower number is lower risk N ot on file 09/17/2022 Data from: https://www.neighborhoodatlas.[facility]/. Last address used for [...] PM EST Appointment Radiology [address] [place] [address] post op xray left knee 06/10/2025 1:00 PM EST Nurse Visit Orthopaedics [address] [place] [address] [place] [address] [place] [address] Surgical post op 07/21/2025 11:00 AM EST [facility] Endocrinology [address] [place] [address] Dinora Bourgeois MD [address] [facility] [place] [address] Follow-up pituitary tumor and medication refill 08/04/2025 3:40 PM EST [employer] [facility] Orthopaedics [address] [place] [address] Dany Rossi DO [address] [place], [place] [id number] 3 month phone Surgical post op documented as of this encounter Visit Diagnoses Not on filedocumented in this encounter Care Teams Snuff Grinder Relationship Specialty Start Date End Date Rickey Cross [address] [phone] PCP - General 04/06/10 04/22/25 Maury Mcnamara [address] [place] [phone] PCP - General Internal Medicine 04/23/25 documented as of this encounter
--- OUTSIDE RECORDS SUMMARY | 2025-05-20 04:20 | XMS_ITS | Encounter Summary ---
Author Organization [facility] Address [address] [place] [address] Care Team Providers Care Pharmacologist Name Role Phone Rickey Cross A Primary Care Provider [phone] EpiMaury pepper Deidra Primary Care Provider [phone] Source Comments In the event this information is protected by the Federal Confidentiality of Alcohol and Drug AbusePatient Records regulations: The Federal rules restrict any use of the information to criminally investigate or prosecute any alcohol or drug abuse patient.[facility] Encounter Details Date Type Department Care Team (Late st Contact Info) Description 03/07/2025 Patient Msg Endocrinology [address] [place] [id number] Dinora Bourgeois MD [address] [place] [address] Appointment Request Social History Tobacco Use Types Packs/Day Years Used Date Smoking Tobacco: Every Day Cigarettes Smokeless Tobacco: Never Alcohol Use Standard Drinks/Week Comments No 0 (1 standard drink = 0.6 oz pur e alcohol) PHQ-2 Answer Date Recorded PHQ-2 score 0 05/30/2024 Area Deprivation Index Answer Date Chicho rded National Score (1-100), lower number is lower ri 78 04/23/2024 State Score (1-10), lower number is lower risk 6 04/23/2024 Data from: https://www.neighborhoodatlas.medicine.[facility].edu/. Last address used for calculation [address] 04/23/2024 Sex and Gender Information Value Date Recorded Sex Assigned at Male 02/08/2020 3:11 PM EDT Legal Sex Male 8:08 AM EST Gender Identity Male 02/08/2020 3:11 PM EDT Sexual Orientation Not on file Travel History Travel Start Travel End [place] 05/17/2025 05/18/2025 documented as of this encounter Functional Status * Are you deaf or do you have serious difficulty hearing? Answer Date of Assessment Author No 11/11/2014 12:35 PM PANCHOT Michelle Salinas (Rn)(Hist) * Are you blind [...] PM EST Appointment Radiology [address] [place] [address] post op xray left knee 06/10/2025 1:00 PM EST Nurse Visit Orthopaedics [address] [place], [place] [id number] Babak Arambula, JESSICA [address] [place] [address] Surgical post op 07/21/2025 11:00 AM EST [facility] Endocrinology [address] [place] [address] Dinora Bourgeois MD [address] [place] [address] Follow-up pituitary tumor and medication refill 08/04/2025 3:40 PM EST [facility] Orthopaedics [address] [place], [place] [id number] Dany Rossi DO [address] [place], [place] [id number] 3 month phone Surgical post op documented as of this encounter Visit Diagnoses Not on filedocumented in this encounter Care Teams Pharmacologist Relationship Specialty Start Date End Date Rickey Cross [address] [phone] PCP - General 04/06/10 04/22/25 Maury Mcnamara [address] [place] [phone] PCP - General Internal Medicine 04/23/25 documented as of this encounter
--- OUTSIDE RECORDS SUMMARY | 2025-05-20 04:20 | XMS_ITS | Encounter Summary ---
Author Organization [facility] Address [address] [place] [address] Care Team Providers Care Marketing Database Consultant Name Role Phone Rickey Cross A Primary Care Provider [phone] EpiMaury pepper Deidra Primary Care Provider [phone] Source Comments In the event this information is protected by the Federal Confidentiality of Alcohol and Drug AbusePatient Records regulations: The Federal rules restrict any use of the information to criminally investigate or prosecute any alcohol or drug abuse patient.[facility] Encounter Details Date Type Department Care Team (Late st Contact Info) Description 08/27/2022 Get Medical Advice Endocrinology [address] [place] [id number] Dinora Bourgeois MD [address] [place] [address] Test Social History Tobacco Use Types Packs/Day Years [...] N ot on file 06/19/2020 Data from: https://www.neighborhoodatlas.medicine.[facility].edu/. Last address used for calculation Not on file 06/19/2020 Sex and Gender Information Value Date Recorded Sex Assigned at Male 02/08/2020 3:11 PM EDT Legal Sex Male 8:08 AM EST Gender Identity Male 02/08/2020 3:11 PM EDT Sexual Orientation Not on file Travel History Travel Start Travel End [place] 05/17/2025 05/18/2025 documented as of this encounter [...] PM EST Appointment Radiology [address] [place] [address] post op xray left knee 06/10/2025 1:00 PM EST Nurse Visit Orthopaedics [address] [place], [place] [id number] [place] [address] [place] [address] Surgical post op 07/21/2025 11:00 AM EST [facility] Endocrinology [address] [place] [address] Dinora Bourgeois MD [address] [place] [address] Follow-up pituitary tumor and medication refill 08/04/2025 3:40 PM EST [facility] Orthopaedics [address] [place], [place] [phone] Dany Rossi DO [address] [place], [place] [phone] 3 month phone Surgical post op documented as of this encounter Visit Diagnoses Not on filedocumented in this encounter Care Teams Marketing Database Consultant Relationship Specialty Start Date End Date Rickey Cross [address] [phone] PCP - General 04/06/10 04/22/25 Maury Mcnamara [address] [place] [phone] PCP - General Internal Medicine 04/23/25 documented as of this encounter
--- OUTSIDE RECORDS SUMMARY | 2025-05-20 04:20 | XMS_ITS | Clinical Summary ---
Author Organization [facility] Address [address] [place] [address] Phone Care Team Providers Care Park Keeper Name Role Phone Unavailable Primary Care Provider Unavailabl e Allergies No known active allergies Medications cabergoline (DOSTINEX) 0.5 mg Oral Tablet 11/29/19 Active oxyCODONE (ROXICODONE) 5 mg Oral TabletIndications: Primary osteoarthritis of left knee Take 1-2 Tablets by mouth 2 times daily as needed for Major Surgery/Trauma (G89.18). 20 Tablet 03/26/20 Active Additional Information Patient not taking.Reason: Therapy Completed, Reported on 01/25/2025 diclofenac (VOLTAREN) 75 mg Oral Tablet, Delayed Release (E.C.)Indications: Primary osteoarthritis of left knee Take 1 Tablet by mouth 2 times daily. Take 1 tablet by mouth twice daily as needed 60 Tablet 04/08/20 Active Additional Information Patient not taking.Reason: Pt electing to not take the medication, Reported on 01/25/2025 oxyCODONE (ROXICODONE) 5 mg Oral TabletIndications: Acute medial meniscus tear of left knee, subsequent encounter Take 1-2 Tablets by mouth 2 times daily as needed for Major Surgery/Trauma (G89.18). 20 Tablet 04/09/20 23 Active Additional Information Patient not taking.Reason: Therapy Completed, Reported on 01/25/2025 ipratropium (ATROVENT) 42 mcg (0.06 %) Nasl [place], Non-AerosolIndicat ions:Sore throat 2 Sprays by Nasal route 3 times daily. 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 Social History Tobacco Use Types Packs/Day Years Used Date Smoking Tobacco: Every Day Cigarettes 1.5 30 Smokeless Tobacco: Never Tobacco Cessation:Ready to Q uit: Not Asked; Counseling Given: Not Answered Sex and Gender Information Value Date Recorded Sex Assigned at Not on file Legal Sex Male 4:02 PM EDT Gender Identity Not on file Sexual Orientation Not on file Last Filed Vital Signs Vital Sign Reading Time Taken Comments Blood Pressure 144/80 01/25/2025 7:34 PM EDT Pulse 63 01/25/2025 7:34 PM EDT Temperature 36.7 C (98.1 F) 01/25/2025 7:34 PM EDT Respiratory Rate 12 01/25/2025 7:34 PM EDT Oxygen Saturation 96% 01/25/2025 7:34 PM EDT Inhaled Oxygen Concentration - - Weight 132.5 kg (292 lb 3.2 oz) 01/25/2025 7:34 PM EDT Height 193 cm (6' 4 ) 01/25/2025 7:34 PM EDT Body Mass Index 35.57 01/25/2025 7:34 PM EDT Plan of Treatment Health Maintenance Due Date Last Done Comments Annual Wellness Exam 09/30/1970 DTaP/TDaP/Td (1 - Tdap) 09/30/1986 Hepatitis B Vaccine (1 of 3 - 19+ 3-dose series) 09/30/1986 Pneumococcal Vaccine 50+ (1 of 2 - PCV) 09/30/1986 Cologuard 09/30/2012 Colon Cancer Screening 09/30/2012 Colonoscopy 09/30/2012 FIT 09/30/2012 Sigmoidoscopy 09/30/2012 Virtual Colonography 09/30/2012 Low Dose Lung Cancer Screening 09/30/2017 Zoster (1 of 2) 09/30/2017 COVID-19 Vaccine ( season) 2025 01/07/2022, 05/16/2021, 09/22/2020, Additional history exists Influenza Vaccine (#1) 2025 04/30/2024 Meningococcal B Vaccine Aged Out No l onger eligible based on patient's age to complete this topic Insurance Member Subscriber Plan / Payer (Ef fective 2016-Present) Name:Juan Orosco Relation to Subscriber:Self Name:Juan Orosco Payer ID:[id number] (NAIC) Group ID:Not on file Type:Not on file Address: [address]
[2025-05-20 04:21] VITALS: BP 108/75; PULSE 76; RESP 16; O2SAT 97
--- NOTE | 2025-05-20 04:27 | PC.NURSE ---
PT brought home meds. PT took 10mg of Oxycodone and 1000mg Tylenol. Provider aware
[2025-05-20 05:19] VITALS: BP 115/82; PULSE 75; RESP 18; TEMP 37; O2SAT 96
[2025-05-20 05:26] LABS: Hepatitis C Ab Qual. W/ RFX NEGATIVE (Negative)
== END 2025-05-20 05:21 | disposition home or self-care (01) ==
PROVIDERS: Emergency Provider Emergency Medicine
DX: M25.562 Pain in left knee (principal); Z96.652 Presence of left artificial knee joint; W18.30XA Fall on same level, unspecified, initial encounter
CPT/HCPCS: 73552; 73562; 86803; 87389; 99283